=== PATIENT | female | born 1945 | race Caucasian/White ===

== ENCOUNTER 2020-12-06 09:38 | Outpatient (CLI) | payer MEDICARE, OTHER, SELFPAY ==
--- NOTE | ~2020-12-06 | DEXA_ITS ---
Bone Density Report Name: Jody Zelaya Age: 75 Sex: Female Ethnicity: White Date of : 1945 Indication: osteopenia; height loss; Referring Provider: Carrie Barber Study: Bone densitometry was performed. Exam Date: December 06, 2020 Accession number: [id number] Bone Density: Region BMD T-score Z-score Classification AP Spine (L1-L4) 0.915 -1.2 1.2 Osteopenia Femoral Neck (Left) 0.710 -1.3 0.8 Osteopenia Total Hip (Left) 0.784 -1.3 0.5 Osteopenia Total Hip Bilateral Avg 0.756 -1.6 0.3 Osteopenia Femoral Neck (Right) 0.686 -1.5 0.6 Osteopenia Total Hip (Right) 0.728 -1.8 0.0 Osteopenia World Health Organization criteria for BMD impression classify patients as: Normal (T-score at or above -1.0), Osteopenia (T-score between -1.0 and -2.5), or Osteoporosis (T-score at or below -2.5). 10-year Fracture Risk(1): Major Osteoporotic Fracture 11% Hip Fracture 2.0% Reported Risk Factors: [place] (), Neck BMD=0.686, BMI=23.8 (1) FRAX(R) Version 3.08. Fracture probability calculated for an untreated patient. Fracture probability may be lower if the patient has received treatment. Previous Exams: Region Exam Age BMD T-score BMD Change BMD Change Date g/cm2 vs Baseline vs Previous AP Spine(L1-L4) 12/06/2020 75 0.915 -1.2 -0.204(-18.2%) -0.008(-0.8%)03/05/2018 72 0.923 -1.1 -0.196(-17.5%) -0.002(-0.2%)02/10/2016 70 0.925 -1.1 -0.194(-17.3%) -0.015(-1.6%)05/26/2011 66 0.939 -1.0 -0.179(-16.0%) -0.179(-16.0%) 12/04/2001 56 1.119 0.7 Total Hip(Left) 12/06/2020 75 0.784 -1.3 -0.250(-24.2%) -0.031(-3.8%)03/05/2018 72 0.815 -1.0 -0.219(-21.2%) -0.041(-4.8%)02/10/2016 70 0.856 -0.7 -0.178(-17.2%) -0.031(-3.5%)05/26/2011 66 0.887 -0.4 -0.147(-14.2%) -0.147(-14.2%) 12/04/2001 56 1.034 0.8 Total Hip(Right) 12/06/2020 75 0.728 -1.8 -0.272(-27.2%) -0.068(-8.6%)03/05/2018 72 0.796 -1.2 -0.204(-20.4%) -0.071(-8.2%)02/10/2016 70 0.868 -0.6 -0.132(-13.2%) 0.018(2.1%)05/26/2011 66 0.849 -0.8 -0.151(-15.1%) -0.151(-15.1%) 12/04/2001 56 1.000 0.5 *Denotes significance at 95% confidence level, LSC for AP Spine = 0.022 g/cm2, LSC for Total Hip = 0.027 g/cm2 Clinical Information Provided by Patient: Has used the following medications: Vitamin D, Calcium Patient maximum height was 69 Menopause Age: 50 Onset of menses at age 15 Number of children 3
--- NOTE | ~2020-12-06 | MM_ITS ---
EXAMINATION: MM screening malcom BI w marleny HISTORY: Screening mammogram TECHNIQUE: Craniocaudal and mediolateral oblique 3-D tomosynthesis images were obtained and synthetic 2-D images were generated. CAD analysis was submitted and interpreted. COMPARISON: 03/01/2018, 02/10/2016, 09/15/2013 bilateral digital screening mammogram examinations BREAST PARENCHYMAL COMPOSITION: The breasts are almost entirely fatty. FINDINGS: There is no evidence of suspicious mass, calcification, or architectural distortion to sugg est malignancy in either breast. There has been no suspicious interval change. IMPRESSION: 1. No mammographic evidence of malignancy. 2. Recommend routine screening mammography in one year. BI-RADS Category 1: Negative Reviewed, dictated and finalized at location A.
== END 2020-12-06 09:39 | disposition home or self-care (01) ==
LOC: ANHIMG 09:41
PROVIDERS: PCP Family Medicine; Visit Provider Physician Assistant
DX: Z12.31 Encounter for screening mammogram for malignant neoplasm of breast (principal); Z78.0 Asymptomatic menopausal state; M85.88 Other specified disorders of bone density and structure, other site; M85.852 Other specified disorders of bone density and structure, left thigh; M85.851 Other specified disorders of bone density and structure, right thigh
CPT/HCPCS: 77063; 77067; 77080

== ENCOUNTER 2022-07-04 08:08 | Outpatient (CLI) | payer MEDICARE, OTHER, SELFPAY ==
[2022-07-04 19:42] LABS: Kit Draw Collected
== END 2022-07-04 08:09 | disposition home or self-care (01) ==
LOC: ANHGOSHLAB 08:11
PROVIDERS: PCP Family Medicine; Visit Provider Family Medicine
DX: E78.2 Mixed hyperlipidemia (principal); I10 Essential (primary) hypertension
CPT/HCPCS: 36415

== ENCOUNTER 2023-03-05 08:42 | Outpatient (CLI) | payer MEDICARE, OTHER, SELFPAY ==
[2023-03-05 20:10] LABS: Hemoglobin 13.1 g/dL (12.0-15.0); Mean Corpuscular Volume 96.9 fl (80-100); Mean Platelet Volume 11.7 fl (7.4-10.4); Platelet Count Result 144 k/mm3 (150-375); Red Blood Count 4.23 M/mm3 (4.2-5.4); White Blood Count 7.9 K/mm3 (4.5-10.0)
[2023-03-05 21:04] LABS: Alanine Aminotransferase 15 U/L (6-35); Albumin Level 4.1 g/dL (3.5-5.1); Alkaline Phosphatase 70 U/L (38-126); Anion Gap 8 mmol/L (8-16); Aspartate Amino Transferase 28 U/L (14-36); Bilirubin,Total 0.9 mg/dL (0.2-1.3); Blood Urea Nitrogen 17 mg/dL (7-17); Carbon Dioxide 26 mmol/L (22-30); Chloride 103 mmol/L (98-107); Cholesterol 179 mg/dL (0-200); Estimated Glomerular Filt Rate > 60; Glucose 89 mg/dL (65-110); HDL Direct 50 mg/dL; Potassium 3.9 mmol/L (3.4-5.0); Sodium 137 mmol/L (137-145); Triglycerides 105 mg/dL (<150)
[2023-03-05 21:16] LABS: LDL Cholesterol Direct 94 mg/dL
== END 2023-03-05 08:43 | disposition home or self-care (01) ==
LOC: ANHGOSHLAB 08:46
PROVIDERS: PCP Family Medicine; Visit Provider Family Medicine
DX: E78.2 Mixed hyperlipidemia (principal); I12.9 Hypertensive chronic kidney disease with stage 1 through stage 4 chronic kidney disease, or unspecified chronic kidney disease; N18.30 Chronic kidney disease, stage 3 unspecified
CPT/HCPCS: 36415; 80053; 80061; 84443; 85027

== ENCOUNTER 2023-04-19 09:49 | Outpatient (CLI) | payer MEDICARE, OTHER, SELFPAY ==
[2023-04-19 19:24] LABS: Appearance Urine Clear (Clear); Bilirubin Urine Negative (Negative); Blood Urine Negative (Negative); Color Urine Yellow (Yellow); Glucose Urine UA Negative (Negative); Ketones Urine Negative (Negative); Leukocyte Esterase Ur Negative LEU/UL (Negative); Nitrate Urine Negative (Negative); Protein Urine Negative (Negative); Urobilinogen Urine 0.2 mg/dL (<2.0); pH Urine 5.5 (5.0-9.0)
[2023-04-19 19:28] LABS: Add Urine Microscopic? NO
== END 2023-04-19 09:50 | disposition home or self-care (01) ==
PROVIDERS: PCP Family Medicine; Visit Provider Nurse Practitioner
DX: R30.0 Dysuria (principal)
CPT/HCPCS: 81003

== ENCOUNTER 2023-05-14 12:52 | Outpatient (CLI) | payer MEDICARE, OTHER, SELFPAY ==
--- NOTE | ~2023-05-14 | US_ITS ---
EXAMINATION: US pelvic complete DATE: 05/14/2023 14:13 INDICATION: Uterine prolapse TECHNIQUE: Multiple transabdominal and endovaginal sonographic images of the pelvis were obtained. COMPARISON: None. FINDINGS: The uterus measures 5.3 x 4.4 x 2.5 cm. The endometrial complex measures 2 mm. The ovaries are not visualized however no adnexal abnormality is seen. There is no free fluid in the pelvis. IMPRESSION: 1. Atrophic uterus. Reviewed, dictated and finalized at location A. IMPRESSION: 1. Atrophic uterus.
== END 2023-05-14 12:53 | disposition home or self-care (01) ==
PROVIDERS: PCP Family Medicine; Visit Provider Urology
DX: N81.4 Uterovaginal prolapse, unspecified (principal)
CPT/HCPCS: 76856

== ENCOUNTER 2023-08-09 08:01 | Outpatient (CLI) | payer MEDICARE, OTHER, SELFPAY ==
[2023-08-09 19:39] LABS: Vitamin D 25 Hydroxy 62.8 ng/mL
[2023-08-09 20:16] LABS: Alanine Aminotransferase 13 U/L (6-35); Albumin Level 3.9 g/dL (3.5-5.1); Alkaline Phosphatase 73 U/L (38-126); Anion Gap 7 mmol/L (8-16); Aspartate Amino Transferase 35 U/L (14-36); Bilirubin,Total 0.9 mg/dL (0.2-1.3); Blood Urea Nitrogen 20 mg/dL (7-17); Calcium 9.2 mg/dL (8.4-10.2); Carbon Dioxide 28 mmol/L (22-30); Chloride 102 mmol/L (98-107); Cholesterol 194 mg/dL (0-200); Estimated Glomerular Filt Rate 54; Glucose 79 mg/dL (65-110); HDL Direct 56 mg/dL; Potassium 4.2 mmol/L (3.4-5.0); Sodium 137 mmol/L (137-145); Triglycerides 73 mg/dL (<150)
[2023-08-09 20:27] LABS: LDL Cholesterol Direct 100 mg/dL
[2023-08-09 22:22] LABS: Hemoglobin A1C 5.6 % (<5.7)
== END 2023-08-09 08:02 | disposition home or self-care (01) ==
PROVIDERS: PCP Family Medicine; Visit Provider Nurse Practitioner
DX: N18.30 Chronic kidney disease, stage 3 unspecified (principal); R73.03 Prediabetes; E55.9 Vitamin D deficiency, unspecified; E78.2 Mixed hyperlipidemia
CPT/HCPCS: 36415; 80053; 80061; 82306; 83036

== ENCOUNTER 2023-08-14 13:22 | Emergency (ER) | payer MEDICARE, OTHER, SELFPAY ==
--- NOTE | ~2023-08-14 | XR_ITS ---
XR shoulder RT min 2V DATE: 08/14/2023 16:53 INDICATION: Fall. Right shoulder pain TECHNIQUE: 4 views COMPARISON: None FINDINGS: There is a linear oblique fracture through the very lateral aspect of the shaft of the righ t clavicle without extension into the acromioclavicular joint. There is minimal displacement or angul ation. Normal alignment at the acromion clavicular and glenohumeral joints. Dextroscoliosis of the thoracic spine. IMPRESSION: Very lateral clavicular shaft fracture Reviewed, dictated and finalized at location L. PLASTERER
[2023-08-14 13:32] VITALS: BP 149/83; PULSE 76; RESP 16; TEMP 36.6; O2SAT 100
--- NOTE | 2023-08-14 16:28 | ED.UPPEXIN ---
HPI - Extremity Injury (Upper) General Chief Complaint: Extremity Injury, Upper Stated Complaint: fall, right shoulder pain Time Seen by Provider: 08/14/23 16:30 Source: patient and family Mode of arrival: ambulatory Limitations: no limitations History of Present Illness HPI narrative: Jody is a 78-year-old female patient presenting to the ER today for a ground level fall. She reports she was reaching up to grab a duster and slipped and hit her mouth and shoulder. States she had her mouth on the kitchen table. Complaints of right upper top dental pain. Also has large bruise with swelling to the right shoulder. Is unable to move the shoulder without significant pain. Pain is to the anterior shoulder. Related Data Home Medications Medication Instructions Recorded Confirmed acetaminophen 500 mg tablet 500 mg PO Q6H PRN 04/08/20 07/02/23 (Tylenol Extra Strength) calcium carbonate 600 mg-vitamin 1 tablet PO DAILY 04/08/20 07/02/23 D3 20 mcg (800 unit) chewable tablet (Caltrate 600 plus D) cholecalciferol (vitamin D3) 50 50 mcg PO DAILY 04/08/20 07/02/23 mcg (2,000 unit) capsule omeprazole 20 mg capsule,delayed 20 mg PO DAILY 04/08/20 07/02/23 release Allergies Allergy/AdvReac Type Severity Reaction Status Date / Time No Known Allergies Allergy Mild Verified 07/02/23 07:26 Review of Systems Review of Systems: Pertinent positives per HPI. Patient denies any fever, chills, rash, headache, visual changes, dizziness, cough, runny nose, sore throat, shortness of breath, chest pain, palpitations, nausea, vomiting, diarrhea, constipation, abdominal pain, or any urinary issues. [facility] Past Medical History Medical History Encounter for dual-energy x-ray absoptiometry review Hearing problem Hepatitis C antibody test negative (07/24/17) Mammogram normal Obesity Surgical History Surgical History History of appendectomy Family History Family History Mother Diabetes mellitus Sibling Depression Father Depression Family history of suicide Hypertension Grandparent Family history of cardiovascular disease Family history of coronary artery disease Other No family history of diabetes mellitus No family history of hypertension No family history of malignant neoplasm Social History Social History Smoking status: Never smoker Alcohol intake: never Substance use: never Substance use type: does not use Lack of Transportation: No Lack of Food: Never True Current Housing: I Have Housing Concerned About Future Housing: No Difficulty Paying Gas/Electric Bills: No Difficulty Paying for Meds: No Currently Unemployed: No Education: Grade School Difficulty w/ Childcare or Family Care: No Living arrangements: alone Occupation/Education: retired Gender identity (if verbalized by the patient): Female Sexual Orientation (if Verbalized by the Patient): Straight or Heterosexual Agree to blood products: Yes Comments At the time of my signature, I reviewed and agree with the nursing past medical, surgical, social, and family history. There is no relevant family history pertinent to the patient complaint. Exam Narrative: General: Well-developed, well nourished, in no apparent distress Head: Normocephalic, atraumatic. No bruising to the right upper lip, teeth are in place-no loose teeth Cardio: Regular rate and rhythm, s1 and s2 normal, no murmur appreciated. Resp: Clear to auscultation bilaterally, no rhonchi, rales, wheezing or rubs. Musculoskeletal: No deformity, large bruise/swelling to the right anterior shoulder, tender to palpation over the right anterior shoulder, unable to lift her arm above her shoulder
[2023-08-14 17:40] VITALS: PULSE 74; RESP 18; O2SAT 97
== END 2023-08-14 17:40 | disposition home or self-care (01) ==
LOC: ANHED 17:36
PROVIDERS: Emergency Provider Nurse Practitioner Family; PCP Family Medicine
DX: S42.012A Anterior displaced fracture of sternal end of left clavicle, initial encounter for closed fracture (principal); W01.0XXA Fall on same level from slipping, tripping and stumbling without subsequent striking against object, initial encounter
CPT/HCPCS: 73030; 99284; A4565

== ENCOUNTER 2023-12-13 07:58 | Outpatient (CLI) | payer MEDICARE, OTHER, SELFPAY ==
[2023-12-13 19:21] LABS: Alanine Aminotransferase 11 U/L (6-35); Albumin Level 3.9 g/dL (3.5-5.1); Alkaline Phosphatase 75 U/L (38-126); Anion Gap 4 mmol/L (4-12); Aspartate Amino Transferase 28 U/L (14-36); Bilirubin,Total 0.7 mg/dL (0.2-1.3); Blood Urea Nitrogen 20 mg/dL (7-17); Calcium 9.1 mg/dL (8.4-10.2); Carbon Dioxide 30 mmol/L (22-30); Chloride 106 mmol/L (98-107); Cholesterol 161 mg/dL (0-200); Estimated Glomerular Filt Rate 48; Glucose 89 mg/dL (65-110); HDL Direct 54 mg/dL; Potassium 3.8 mmol/L (3.4-5.0); Sodium 140 mmol/L (137-145); Triglycerides 105 mg/dL (<150)
[2023-12-13 19:36] LABS: LDL Cholesterol Direct 91 mg/dL
[2023-12-13 20:49] LABS: Hemoglobin A1C 5.5 % (<5.7)
== END 2023-12-13 07:59 | disposition home or self-care (01) ==
LOC: ANHGOSHLAB 08:00
PROVIDERS: PCP Family Medicine; Visit Provider Nurse Practitioner
DX: R73.03 Prediabetes (principal); F32.A Depression, unspecified; E78.2 Mixed hyperlipidemia; N18.30 Chronic kidney disease, stage 3 unspecified
CPT/HCPCS: 36415; 80053; 80061; 83036; 84443

== ENCOUNTER 2024-01-28 09:56 | Outpatient (CLI) | payer MEDICARE, OTHER, SELFPAY ==
--- NOTE | 2024-01-28 11:01 | ECG_ITS ---
Test Date: 2024-01-28 11:18:01 Measurements Intervals [place] Rate: 66 P: 51 ME: 145 QRS: 23 QRSD: 85 T: 24 QT: 399 QTc: 418 Interpretive Statements SINUS RHYTHM WITHIN NORMAL LIMITS WARNING: DATA QUALITY MAY AFFECT INTERPRETATION No previous ECG available for comparison Electronically Signed On 01-28-2024 15:23:45 CDT by Luis Felipe Enriquez M.D.
[2024-01-28 11:30] LABS: Basophils Absolute Auto 0.1 K/mm3 (0.0-0.1); Basophils Percent Auto 0.8 % (0.2-1.2); Eosinophils Absolute Auto 0.2 K/mm3 (0-0.3); Eosinophils Percent Auto 2.7 % (0-4.4); Hematocrit 40.8 % (37.0-47.0); Hemoglobin 13.5 g/dL (12.0-15.0); Immature Granulocyte Absolute 0.02 K/mm3 (0.00-0.031); Immature Granulocyte Percent A 0.3 % (0-0.5); Lymphocytes Absolute Auto 1.59 K/mm3 (0.9-3.2); Lymphocytes Percent Auto 21.8 % (18.3-44.2); Mean Corpuscular HGB Conc 33.1 g/dl (32-36); Mean Corpuscular Hemoglobin 30.6 pg (26-34); Mean Corpuscular Volume 92.5 fl (80-100); Mean Platelet Volume 10.5 fl (7.4-10.4); Monocytes Absolute Auto 0.6 K/mm3 (0.1-0.6); Monocytes Percent Auto 7.5 % (2.6-8.5); Neutrophils Absolute Auto 4.9 K/mm3 (1.3-6.7); Neutrophils Percent Auto 66.9 % (45.5-73.1); Platelet Count Result 144 k/mm3 (150-375); Red Blood Count 4.41 M/mm3 (4.2-5.4); Red Cell Distribution Width 12.2 % (11.5-14.5); White Blood Count 7.3 K/mm3 (4.5-10.0)
== END 2024-01-28 09:57 | disposition home or self-care (01) ==
LOC: ANHSURGERY 10:02
PROVIDERS: PCP Family Medicine; Visit Provider Urology
DX: Z01.818 Encounter for other preprocedural examination (principal); N81.4 Uterovaginal prolapse, unspecified; I10 Essential (primary) hypertension
CPT/HCPCS: 36415; 85025; 86850; 86900; 86901; 87086; 87088; 93005

== ENCOUNTER 2024-02-08 01:15 | Day surgery (SDC) | payer MEDICARE, OTHER, SELFPAY ==
[2024-01-28 10:13] VITALS: BMI 24.0
--- NOTE | 2024-01-28 10:34 | PC.NURSE ---
Report to the Outpatient Waiting Room, entrance under the green pavilion located off [facility], at time _6:00 AM on date ___02/08/24____. Planned Procedure Time: __8:00 AM . Time changes happen often and if your time is changed the preop area will call you the afternoon before. - You and your visitor will be asked to self-screen and do not enter if you have any COVID symptoms. - A mask is optional within the hospital at this time. Patients may have clear liquids (water, carbonated beverages, clear teas, apple juice) until 3 hours prior to surgery ( 5:00 AM)with a maximum of 20 ounces. - No food from midnight until time of surgery - Infants may have breast milk until 4 hours before surgery, infant formula 6 hours prior to surgery. - Children will be allowed to drink immediately following surgery. If applicable, please bring a bottle or sippy cup to assist with drinking. Juice, water, soda, and popsicles are readily available. For infants on formula, please bring formula the day of surgery. Pacifiers are allowed. Take the following medications with a SIP of water the morning of surgery: ___METOPROLOL,SERTRALINE,TRAMADOL IF NEEDED DO NOT STOP ANY OF YOUR OTHER PRESCRIPTION MEDICATIONS PRIOR TO SURGERY ?EXCEPT THE FOLLOWING Medications to discontinue per physician ___PT STATES HOLD ALL VITAMINS AND SUPPPLEMENTS 7 DAYS PRE OP PER DR BENITEZ.LAST DOSE 01/31/24 Please no make-up, nail bulgarian, hairspray, perfume, deodorant, or body powder the day of surgery. No jewelry (including any body piercings) or valuables the day of surgery, leave them at home. Please take a shower or bath the night before, or the morning of, surgery with an antibacterial soap. Wear comfortable, loose fitting clothing. Children are encouraged to wear pajamas. - Jewelry must be removed prior to entering the operating room. Rings and piercings that are not removed may be cut off. - The hospital will not accept responsibility for valuables. - Please leave all valuables, including medications, at home the day of surgery. If you are going home after surgery, a licensed short haul driver must drive you home. - NO public transportation without another adult if you receive anesthesia. - We recommend that an adult stay with you for 24 hours following discharge. - We also recommend that you do not drive, make important decision, drink alcoholic beverages, or take any drugs that were not prescribed by your health care provider for at least 24 hours after your discharge time. Follow any additional instructions given to you from your surgeon. If you or anyone in your household have experienced Covid symptoms in the past week, please notify your surgeon or the nurse liaison at the phone number below for possible testing. VERBAL AND WRITTEN instructions given to _PATIENT AND DAUGHTER NAMITA and asked if any additional questions and then verbalized understanding. Patient advised to call surgeon office or pre surgery nurse liaison [phone] if any additional questions.
[2024-01-28 11:05] VITALS: BP 165/87; PULSE 80; RESP 18; TEMP 36.7; O2SAT 98
--- NOTE | 2024-02-03 17:50 | PM.IMHP ---
H&P: HPI History of Present Illness Date/Time: 02/03/24 17:50 Chief Complaint: Pelvic organ prolapse Narrative: uterine prolapse and occult stress incontinence noted on urodynamics. Normal endometrial thickness Review of Systems Review of Systems: All systems reviewed & are unremarkable except as noted in HPI and below PMFSH Past Medical History Medical History Encounter for dual-energy x-ray absoptiometry review Hearing problem Hepatitis C antibody test negative (07/24/17) Mammogram normal Obesity Surgical History Surgical History History of appendectomy Family History Family History Mother Diabetes mellitus Sibling Depression Father Depression Family history of suicide Hypertension Grandparent Family history of cardiovascular disease Family history of coronary artery disease Other No family history of diabetes mellitus No family history of hypertension No family history of malignant neoplasm Social History Social History Smoking status: Never smoker Alcohol intake: never Substance use: never Substance use type: does not use Do You Feel Safe in your Home?: Yes Lack of Transportation: No Lack of Food: Never True Current Housing: I Have Housing Concerned About Future Housing: No Difficulty Paying Gas/Electric Bills: No Difficulty Paying for Meds: No Currently Unemployed: No Education: Grade School Difficulty w/ Childcare or Family Care: No Living arrangements: alone Occupation/Education: retired Gender identity (if verbalized by the patient): Female Sexual Orientation (if Verbalized by the Patient): Straight or Heterosexual Spiritual care concerns: No Agree to blood products: Yes Meds Home Medications and Allergies Home Medications Medication Instructions Recorded Confirmed Type acetaminophen 500 mg tablet 500 mg PO Q6H PRN Pain 04/08/20 01/28/24 History (Tylenol Extra Strength) calcium carbonate 600 mg-vitamin 1 tablet PO DAILY 04/08/20 01/28/24 History D3 20 mcg (800 unit) chewable tablet (Caltrate 600 plus D) cholecalciferol (vitamin D3) 50 50 mcg PO DAILY 04/08/20 01/28/24 History mcg (2,000 unit) capsule omeprazole 20 mg capsule,delayed 20 mg PO DAILY 04/08/20 01/28/24 History release tramadol 50 mg tablet 50 mg PO BID PRN pain #60 tabs 12/06/23 01/28/24 Rx metoprolol tartrate 37.5 mg tablet 37.5 mg PO DAILY 12/24/23 01/28/24 History sertraline 50 mg tablet 25 mg PO DAILY 12/24/23 01/28/24 History Allergies Allergy/AdvReac Type Severity Reaction Status Date / Time No Known Allergies Allergy Mild Verified 01/28/24 10:09 Exam Narrative: no acute distress alert oriented x3 apical prolapse +6 intrinsic sphincter deficiency Assessment and Plan Assessment and plan (1) Uterine prolapse: Code(s): N81.4 - Uterovaginal prolapse, unspecified Status: Acute (2) Intrinsic sphincter deficiency (ISD): Code(s): N36.42 - Intrinsic sphincter deficiency (ISD) Status: Acute Plan plan for colpocleisis with concomitant bulking agent. Understands risks of bleeding, infection, damage surrounding organs, damage to the urinary tract, recurrence of prolapse, inability to have penetrative intercourse, obstructive voiding requiring catheterization, recurrent or persistent prolapse or incontinence. She agrees to proceed.
[2024-02-08] VITALS (7 sets, daily range): BP systolic 128–162; BP diastolic 55–82; PULSE 62–82; RESP 14–16; TEMP 36.2–36.3; O2SAT 95–100; BMI 22.8
--- NOTE | 2024-02-08 05:26 | WPDHPUPDATE1 ---
History and Physical Update Update Date/Time: 02/08/24 05:26 History and Physical has been reviewed, including an updated exam of the patient. There are NO changes in the patient's condition. Risks, benefits, and alternatives have been discussed and questions answered. Patient agrees to proceed with procedure.
[2024-02-08] MEDS: LACTATED RINGERS 1,000 ML 30 ML IV CONT ×2 (09:04→11:09)
--- NOTE | 2024-02-08 09:04 | WPDANESEPPF ---
Anes - Initial Pre Proc Eval Procedure: Operation Date: 02/08/24 10:00 Proposed Procedures p Colpocleisis - Ariel Long MD Date/Time: 02/08/24 09:04 Surgeon: Ariel Long MD Pre Op Diagnosis: uterine prolapse Patient Data Age: 78 Gender: F Height: 1.7 m Weight: 66.35 kg Last Vital Signs Temp 97.2 F L 02/08/24 08:45 Pulse 76 02/08/24 08:45 Resp 14 02/08/24 08:45 BP 162/78 H 02/08/24 08:45 Pulse Ox 99 02/08/24 08:45 O2 Del Method Room Air 02/08/24 08:45 Allergies Allergy/AdvReac Type Severity Reaction Status Date / Time No Known Allergies Allergy Mild Verified 02/08/24 08:40 Home Medications Medication Instructions Recorded Confirmed Type acetaminophen 500 mg tablet 500 mg PO Q6H PRN Pain 04/08/20 01/28/24 History (Tylenol Extra Strength) calcium carbonate 600 mg-vitamin 1 tablet PO DAILY 04/08/20 01/28/24 History D3 20 mcg (800 unit) chewable tablet (Caltrate 600 plus D) cholecalciferol (vitamin D3) 50 50 mcg PO DAILY 04/08/20 01/28/24 History mcg (2,000 unit) capsule omeprazole 20 mg capsule,delayed 20 mg PO DAILY 04/08/20 01/28/24 History release tramadol 50 mg tablet 50 mg PO BID PRN pain #60 tabs 12/06/23 01/28/24 Rx metoprolol tartrate 37.5 mg tablet 37.5 mg PO DAILY 12/24/23 01/28/24 History sertraline 50 mg tablet 25 mg PO DAILY 12/24/23 01/28/24 History Patient hx anesthesia problems: none Family hx anesthesia problems: none Results Review: All pre-operative results and documents have been reviewed as part of the pre-operative evaluation. [facility] Past Medical History Medical History Encounter for dual-energy x-ray absoptiometry review Hearing problem Hepatitis C antibody test negative (07/24/17) Mammogram normal Obesity Surgical History Surgical History History of appendectomy Family History Family History Mother Diabetes mellitus Sibling Depression Father Depression Family history of suicide Hypertension Grandparent Family history of cardiovascular disease Family history of coronary artery disease Other No family history of diabetes mellitus No family history of hypertension No family history of malignant neoplasm Social History Social History Smoking status: Never smoker Alcohol intake: never Substance use: never Substance use type: does not use Do You Feel Safe in your Home?: Yes Lack of Transportation: No Lack of Food: Never True Current Housing: I Have Housing Concerned About Future Housing: No Difficulty Paying Gas/Electric Bills: No Difficulty Paying for Meds: No Currently Unemployed: No Education: Grade School Difficulty w/ Childcare or Family Care: No Living arrangements: alone Occupation/Education: retired Gender identity (if verbalized by the patient): Female Sexual Orientation (if Verbalized by the Patient): Straight or Heterosexual Spiritual care concerns: No Agree to blood products: Yes Anes - Eval Final PreProcedure Day of Procedure 02/08/24 09:04 Patient weight: normal Heart: regular rate and rhythm Lungs: clear to auscultation Airway: Mallampati scale and special considerations (Missing many teeth in the post aspect. None loose. ) Neurological: alert and oriented Last oral intake: >/= 8 hours ASA classification: II Emergent: no Anesthetic plan: proceed Anesthesia type and monitoring: general LMA and standard monitoring Results Review: All pre-operative results and documents have been reviewed as part of the pre-operative evaluation. EKG w NSR. Informed Consent: The patient's anesthetic plan and its attendant risks and benefits were discussed with the patient/family/POA. Ques
[2024-02-08] MEDS: ceFAZolin 2 GM/D5W 50 ML 2 GM/50 ML BAG IVPB (09:13)
[2024-02-08] MEDS: BUPIVACAINE/EPINEPHRINE 0.5% 10 ML VIAL 20 ML INFILTRATE (09:29)
--- NOTE | 2024-02-08 11:09 | W.PM.PROC2 ---
Procedure Note - Detailed Date of Procedure 02/08/24 Pre-op Diagnosis uterine prolapse., cystocele, rectocele, female perineal laxity, intrinsic sphincter deficiency Post-op Diagnosis Same Procedure Performed Cystocele repair, rectocele repair, perineoplasty. LeFort colpocleisis, cystoscopy with suburethral injection of implant material Surgeon Ariel Long MD Anesthesia General Indications This with significant uterine prolapse. She has normal endometrial thickness. She has intrinsic sphincter deficiency on urodynamics. She presents for surgery. She has opted for a colpocleisis. She understands risks of bleeding, infection, damage surrounding organs, damage to the urinary tract, lack of cure of a continence and prolapse, recurrent incontinence and prolapse, postoperative voiding dysfunction, hip and leg pain, inability to have penetrative intercourse, damage to bladder bowel, fistula formation, other intraoperative and postoperative complications. She agrees to proceed Findings Significant uterine prolapse, intrinsic sphincter deficiency Description of Procedure She was correctly identified. Informed consent obtained. She had from the operating room. She was given general anesthesia. She was placed in dorsal lithotomy position. She was prepped and draped sterile fashion. Time-out performed. I placed a [place] retractor. I placed Tai catheter. She had significant procidentia. Her apex was at +8 +9. I maya 2 rectangle shaped areas. One of the posterior vaginal wall. One in the anterior vaginal wall. I anesthetized the posterior vaginal wall. I removed the mucosa from the posterior vaginal wall. I then did the same on the anterior vaginal wall. I took great care not to injure underlying organs. I then performed a LeFort type colpocleisis which essentially performed a cystocele and rectocele repair. I plicated the anterior wall to the posterior wall. I left to drainage tunnels on both sides. This was done with several sutures of imbricating 0 Vicryl suture completely reducing the prolapse. I then closed mucosa to mucosa with interrupted 0 Vicryl suture in a horizontal mattress fashion. This completed the colpocleisis. The uterus was completely reduced. I then marked out a sid-shaped area of skin on the perineum. This area of skin. I performed a significant perineoplasty to narrow the vaginal introitus. I did this with interrupted 0 Vicryl sutures. I used a 2-0 Vicryl to close mucosa to mucosa thus completing the surgery I then performed cystoscopy. She had moderate trabeculation. No foreign body in the bladder no abnormal red patches. No tumors. Ureteral patency was documented by placing guidewires up both ureters. I examined the urethra. She had an open urethra consistent with intrinsic sphincter deficiency. I chose a site 2 cm distal to bladder neck. I injected bulking agent circumferentially. I performed several pillows completely coapted urethra. I used 1 syringe total. There was excellent bulking effect. I left the bladder partially full. Rectal exam is normal. She was awakened transferred to PACU in stable condition. Estimated Blood Loss 100 Drains No Packing No Pathology None sent Complications No immediate complications Condition Stable
[2024-02-08] MEDS: KETOROLAC 15 MG/ML VIAL (*BKC) IV PUSH (11:15)
[2024-02-08] MEDS: fentaNYL CITRATE INJ (*CRX) 100 MCG/2 ML VIAL 25 MCG IV PUSH ×8 (11:15→11:50)
== END 2024-02-08 12:55 | disposition home or self-care (01) ==
PROVIDERS: PCP Family Medicine; Visit Provider Urology
PROC: (CPT 57120; principal; 2024-02-08 10:00)
DX: N81.4 Uterovaginal prolapse, unspecified (principal); N36.42 Intrinsic sphincter deficiency (ISD)
CPT/HCPCS: 57260; 56810; 51715; 87088; C1758; C1769; J0690; J1885; J2405; J2704; J3010; J7120; L8606; Q9968

== ENCOUNTER 2024-04-17 08:01 | Outpatient (CLI) | payer MEDICARE, OTHER, SELFPAY ==
[2024-04-17 13:58] LABS: Hematocrit 41.9 % (37.0-47.0); Hemoglobin 13.7 g/dL (12.0-15.0); Immature Platelet Fraction Pct 4.3 % (0.9-11.2); Mean Corpuscular HGB Conc 32.7 g/dl (32-36); Mean Corpuscular Hemoglobin 30.7 pg (26-34); Mean Corpuscular Volume 93.9 fl (80-100); Mean Platelet Volume 10.8 fl (7.4-10.4); Platelet Count Result 133 k/mm3 (150-375); Red Blood Count 4.46 M/mm3 (4.2-5.4); Red Cell Distribution Width 12.3 % (11.5-14.5); White Blood Count 8.2 K/mm3 (4.5-10.0)
[2024-04-17 14:51] LABS: Alanine Aminotransferase 12 U/L (6-35); Alkaline Phosphatase 72 U/L (38-126); Anion Gap 6 mmol/L (4-12); Aspartate Amino Transferase 44 U/L (14-36); Bilirubin,Total 0.7 mg/dL (0.2-1.3); Blood Urea Nitrogen 21 mg/dL (7-17); Calcium 8.8 mg/dL (8.4-10.2); Carbon Dioxide 30 mmol/L (22-30); Chloride 98 mmol/L (98-107); Cholesterol 174 mg/dL (0-200); Estimated Glomerular Filt Rate 48; Glucose 88 mg/dL (65-110); HDL Direct 54 mg/dL; Potassium 4.2 mmol/L (3.4-5.0); Sodium 134 mmol/L (137-145); Triglycerides 107 mg/dL (<150)
[2024-04-17 14:56] LABS: Creatinine Urine 62.9 mg/dL
[2024-04-17 15:05] LABS: LDL Cholesterol Direct 90 mg/dL
[2024-04-17 15:31] LABS: MALB Creatinine Ratio < 9.5 mg/g (0-30); Microalbumin Urine Random < 6.0 mg/L (0-16.7)
[2024-04-17 15:59] LABS: Hemoglobin A1C 5.7 % (<5.7)
[2024-04-17 18:36] LABS: Vitamin D 25 Hydroxy 43.9 ng/mL
== END 2024-04-17 08:02 | disposition home or self-care (01) ==
PROVIDERS: PCP Family Medicine; Visit Provider Nurse Practitioner
DX: E78.5 Hyperlipidemia, unspecified (principal); R73.03 Prediabetes; E55.9 Vitamin D deficiency, unspecified; N18.30 Chronic kidney disease, stage 3 unspecified
CPT/HCPCS: 36415; 80053; 80061; 82043; 82306; 83036; 84443; 85027; 85055

== ENCOUNTER 2024-09-15 08:08 | Outpatient (CLI) | payer MEDICARE, OTHER, SELFPAY ==
[2024-09-15 12:29] LABS: Alanine Aminotransferase 57 U/L (6-35); Albumin Level 3.6 g/dL (3.5-5.1); Alkaline Phosphatase 95 U/L (38-126); Anion Gap 9 mmol/L (4-12); Aspartate Amino Transferase 70 U/L (14-36); Bilirubin,Total 1.1 mg/dL (0.2-1.3); Blood Urea Nitrogen 12 mg/dL (7-17); Carbon Dioxide 28 mmol/L (22-30); Chloride 104 mmol/L (98-107); Cholesterol 161 mg/dL (0-200); Estimated Glomerular Filt Rate > 60; Glucose 103 mg/dL (65-110); HDL Direct 34 mg/dL; Potassium 4.4 mmol/L (3.4-5.0); Sodium 141 mmol/L (137-145); Triglycerides 155 mg/dL (<150)
[2024-09-15 12:41] LABS: LDL Cholesterol Direct 86 mg/dL
[2024-09-15 13:16] LABS: MALB Creatinine Ratio < 12.5 mg/g (0-30); Microalbumin Urine Random < 6.0 mg/L (0-16.7)
[2024-09-15 13:20] LABS: Hemoglobin A1C 5.6 % (<5.7)
== END 2024-09-15 08:09 | disposition home or self-care (01) ==
LOC: ANHGOSHLAB 08:09
PROVIDERS: PCP Family Medicine; Visit Provider Nurse Practitioner
DX: E78.2 Mixed hyperlipidemia (principal); N18.32 Chronic kidney disease, stage 3b; R73.03 Prediabetes
CPT/HCPCS: 36415; 80053; 80061; 82043; 83036

== ENCOUNTER 2024-11-20 02:32 | Emergency (ER) | payer MEDICARE, OTHER, SELFPAY ==
--- NOTE | ~2024-11-20 | CT_ITS ---
Noncontrast CT scan of the lumbar spine CLINICAL HISTORY: Right sciatica TECHNIQUE: Axial noncontrast imaging of the lumbar spine was performed. Sagittal and coronal reformat abeba images were constructed. Dose reduction technique was used on this scan by utilizing automated ex posure control and iterative reconstruction technique. The dose-length product (DLP) was 297.04 mGy-c m. FINDINGS: Chronic T11 compression fracture deformity noted. No fracture seen in the lumbar spine. The re is minimal grade 1 retrolisthesis of L2 over L3. At L1-L2, there is advanced degenerative disc narrowing. There is minimal disc bulge and minimal face t arthropathy. No central canal stenosis or neural foraminal narrowing. At L2-L3, there is diffuse disc bulge with mild facet arthropathy. Possible mild central canal stenos is. There is moderate to advanced right neural foraminal narrowing. Left neural foramen preserved. L3-L4, there is moderate degenerative disc narrowing. There is diffuse disc bulge with mild to modera te facet arthropathy. There is probable moderate central canal stenosis/thecal sac compression. There is moderate to advanced left neural foraminal narrowing, and severe right neural foraminal narrowing . At L4-L5, there is advanced degenerative spurring. There is disc bulge and mild facet arthropathy. Po ssible mild central canal stenosis. There is mild to moderate bilateral neural foraminal narrowing. L5-S1, there is no significant disc bulge or herniation. No spinal canal stenosis or neural foraminal narrowing. Paravertebral soft tissues are unremarkable. Impression: Advanced degenerative spondylosis at L3-L4. Moderate degenerative spondylosis at L2-L3 and L4-L5. Additional mild degenerative changes, as above. Chronic T11 compression fracture. Reviewed, dictated and finalized at location M. Impression: Advanced degenerative spondylosis at L3-L4. Moderate degenerative spondylosis at L2-L3 and L4-L5. Additional mild degenerative changes, as above. Chronic T11 compression fracture.
[2024-11-20 02:25] VITALS: BP 148/88; PULSE 93; RESP 16; TEMP 36.6; O2SAT 100
[2024-11-20 03:21] VITALS: BP 166/96; PULSE 87; RESP 16; TEMP 36.6; O2SAT 100
[2024-11-20] MEDS: ORPHENADRINE CITRATE 100 MG TABLET.ER PO (03:52)
[2024-11-20] MEDS: dexAMETHasone SOD PHOS INJ 10 MG/ML 1 ML VIAL IM (03:53)
[2024-11-20] MEDS: KETOROLAC 30 MG/ML VIAL (*BKC) IM (03:54)
[2024-11-20] MEDS: MORPHINE SULFATE (*CRX) 4 MG/ML INJ IM (03:56)
[2024-11-20] MEDS: LIDOCAINE 5% PATCH 1 PATCH TRANSDERM (03:58)
--- NOTE | 2024-11-20 04:54 | ED_ITS ---
HPI - General Adult General Chief complaint: Back Pain/Injury Stated complaint: BACK PAIN Time Seen by Provider: 11/20/24 03:35 History of Present Illness HPI narrative: Patient 79-year-old female who presents emergency department with chief complaint of back pain and sciatic pain. Patient reports she has pain shooting down her right leg and reports taking Tylenol and tramadol without relief. Patient states the pain is worse with movement and improved with rest the patient denies bowel or bladder incontinence denies footdrop denies saddle anesthesia. Related Data Home Medications ?Medication ?Instructions ?Recorded ?Confirmed ?Last Taken ?Type calcium 600 mg (as carbonate)-vit 1 tablet PO DAILY 04/08/20 09/25/24 02/05/24 History D3 20 mcg (800 unit) chewable tablet (Caltrate plus D) omeprazole 20 mg capsule,delayed 20 mg PO DAILY 04/08/20 09/25/24 02/07/24 History release Allergies Allergy/AdvReac Type Severity Reaction Status Date / Time No Known Allergies Allergy Mild Verified 09/25/24 08:06 Review of Systems Review of Systems: A 10 system review of systems was completed on the patient and is negative except for what is stated in the HPI. Nursing and ancillary documentation was reviewed. [facility] Past Medical History Medical History Encounter for dual-energy x-ray absoptiometry review Mammogram normal Obesity Hearing problem Hepatitis C antibody test negative (07/24/17) Surgical History Surgical History History of appendectomy Family History Family History Mother Diabetes mellitus Sibling Depression Father Depression Family history of suicide Hypertension Grandparent Family history of cardiovascular disease Family history of coronary artery disease Other No family history of diabetes mellitus No family history of hypertension No family history of malignant neoplasm Social History Social History Smoking status: Never smoker Alcohol intake: never Substance use: never Substance use type: does not use Do You Feel Safe in your Home?: Yes Lack of Transportation: No Lack of Food: Never True Current Housing: I Have Housing Concerned About Future Housing: No Difficulty Paying Gas/Electric Bills: No Difficulty Paying for Meds: No Currently Unemployed: No Education: Grade School Difficulty w/ Childcare or Family Care: No Living arrangements: alone Occupation/Education: retired Gender identity (if verbalized by the patient): Female Sexual Orientation (if Verbalized by the Patient): Straight or Heterosexual Spiritual care concerns: No Agree to blood products: Yes Exam Narrative: GENERAL: Well-appearing, well-nourished, and in no acute distress. HEAD: Normocephalic, atraumatic. EYES: PERRLA and EOMI. ENT: Nares clear, no rhinorrhea or epistaxis. Mucous membranes moist. NECK: Supple. CHEST: Clear to auscultation. No respiratory distress. HEART: Regular rate and rhythm. No murmur heard. Normal peripheral pulses. ABDOMEN: Soft, nontender, nondistended, normal active bowel sounds. EXTREMITIES: Normal range of motion. No edema. Tenderness to palpation the right sciatic area SKIN: Warm, dry, no rash. NEURO: No focal deficits. Alert and oriented x3. No saddle anesthesia no footdrop PSYCH: Normal mood and affect. Course Vital Signs Vital signs: Vital Signs Temperature 36.6 C 11/20/24 02:25 Pulse Rate 93 11/20/24 02:25 Respiratory Rate 16 11/20/24 02:25 Blood Pressure 148/88 H 11/20/24 02:25 Pulse Oximetry 100 11/20/24 02:25 Oxygen Delivery Room Air 11/20/24 02:25 Temperature 36.6 C 11/20/24 05:00 Pulse Rate 77 11/20/24 05:00 Respiratory Rate 18 11/20/24 05:00 Blood Pressure 138/59 L 11/20/24 05:00 Pulse Oximetry 99 11/20/24 05:00 Oxygen Delivery Room Air 11/20/24 02:25 Medical Decision Making MDM Narrative Medical decision making narrative: Differential diagnosis includes sciatica, lumbar fracture, CT scan showed Advanced degenerative spondylosis at L3-L4. Moderate degenerative spondylosis at L2-L3 and L4-L5. Additional mild degenerative changes, as above. Chronic T11 compression fracture. Vital Signs Vital Signs: Vital Signs Temperature 36.6 C 11/20/24 02:25 Pulse Rate 93 11/20/24 02:25 Respiratory Rate 16 11/20/24 02:25 Blood Pressure 148/88 H 11/20/24 02:25 Pulse Oximetry 100 11/20/24 02:25 Oxygen Delivery Room Air 11/20/24 02:25 Temperature 36.6 C 11/20/24 05:00 Pulse Rate 77 11/20/24 05:00 Respiratory Rate 18 11/20/24 05:00 Blood Pressure 138/59 L 11/20/24 05:00 Pulse Oximetry 99 11/20/24 05:00 Oxygen Delivery Room Air 11/20/24 02:25 Discharge Plan Discharge Clinical Impression: Sciatica Patient Disposition: Home Condition: Stable Instructions: Antibiotic Form, Sciatica (ED) Patient Language: Bulgarian Prescriptions: New prednisone 20 mg tablet 40 mg PO DAILY 5 Days Qty: 10 0RF lidocaine [Lidoderm] 5 % adhesive patch,medicated 1 patch topical DAILY Qty: 15 0RF Rx Instructions: leave on most painful area for up to 12 hrs hydrocodone-acetaminophen 5-325 mg tablet 1 tablet PO Q6H PRN (Reason: pain) 3 Days Qty: 12 0RF meloxicam 15 mg tablet 15 mg PO DAILY Qty: 14 0RF No Action Caltrate 600 plus D 600 mg (1,500 mg)-800 unit tablet,chewable 1 tablet PO DAILY omeprazole 20 mg capsule,delayed release(DR/EC) 20 mg PO DAILY tramadol 50 mg tablet 50 mg PO BID PRN (Reason: pain) Qty: 60 3RF metoprolol tartrate 37.5 mg tablet 37.5 mg PO DAILY Qty: 90 1RF tizanidine 4 mg tablet 4 mg PO QHS PRN (Reason: muscle spasticity) Qty: 30 0RF Follow-up/Referrals: Ambika Lew DO [Primary Care Provider] - Time of Disposition: 06:57
[2024-11-20 05:00] VITALS: BP 138/59; PULSE 77; RESP 18; TEMP 36.6; O2SAT 99
== END 2024-11-20 07:48 | disposition home or self-care (01) ==
PROVIDERS: Emergency Provider Emergency Medicine; PCP Family Medicine
DX: M54.41 Lumbago with sciatica, right side (principal); E66.9 Obesity, unspecified; Z68.26 Body mass index [BMI] 26.0-26.9, adult; M47.816 Spondylosis without myelopathy or radiculopathy, lumbar region; M48.54XA Collapsed vertebra, not elsewhere classified, thoracic region, initial encounter for fracture
CPT/HCPCS: 72131; 96372; 99284; A9270; J1100; J1885; J2270

== ENCOUNTER 2024-11-26 11:20 | Inpatient (IN) | payer MEDICARE, OTHER, SELFPAY ==
[2024-11-26] VITALS (14 sets, daily range): BP systolic 124–178; BP diastolic 55–94; PULSE 70–95; RESP 14–18; TEMP 36.7–37; O2SAT 94–99; BMI 24.5
--- NOTE | ~2024-11-26 | MR_ITS ---
EXAMINATION: MR lumbar spine wo con DATE: 11/27/2024 09:01 INDICATION: Low back pain and right-sided sciatica. TECHNIQUE: Magnetic resonance imaging (MRI) of the lumbar spine was performed without intravenous con trast. Sequences included sagittal T2-weighted FSE, sagittal T2-weighted FS FSE, sagittal T1-weighted FSE, and axial T2-weighted FSE. COMPARISON: None FINDINGS: Mild upper lumbar levocurvature and mild lower lumbar dextrocurvature. There is a 6 mm left lateral l isthesis L3 on L4. Sagittal alignment is normal. Chronic T11 compression fracture with 40% anterior v ertebral body height loss. T12 and the lumbar vertebral body heights are normal. Severe right-sided p redominant disc height loss at L1-L2 and moderate to severe disc height loss at L3-L4 right-sided pre dominant disc height loss at L2-L3. There are mild T2 hyperintense fibrovascular degenerative endplat e changes at each level. There is moderate disc height loss at T10-T11 and L4-L5. Mild disc height lo ss at L5-S1, T11-T12 and T12-L1. There are annular fissures at and L1-L2, L2-L3, L3-L4 and L5-S1. The conus medullaris terminates at T12. There is normal signal in the caudal spinal cord. T2 hyperintens e parenchymal and parapelvic cysts at both kidneys. Paravertebral soft tissues are unremarkable. The following disc levels are specifically discussed: T10-T11: Disc is bulging. There is moderate bilateral facet osteoarthritis. There is mild right neura l foraminal stenosis. There is mild central canal stenosis. T11-T12: Negligible disc bulge. There is mild right and moderate left facet osteoarthritis. There is no neural foraminal stenosis. There is minimal central canal stenosis. T12-L1: Disc is mildly bulging. There is moderate bilateral facet joint osteoarthritis. There is no n eural foraminal stenosis. There is normal central canal stenosis. L1-L2: Disc is bulging with superimposed central annular fissure and disc extrusion with disc materia l extending 3 mm caudal to the level of the superior endplate of L2. There is moderate left and sever e right facet joint osteoarthritis. There is mild bilateral neural foraminal stenosis. There is mild central canal stenosis with narrowing of the left and right lateral recesses.. L2-L3: Disc is bulging with superimposed annular fissures and disc extrusions at the bilateral forami nal zones with disc material extends up to 4 and 5 mm caudal to the level of the superior endplate of L3. There is severe left and moderate right facet joint osteoarthritis. There is moderate right and mild left neural foraminal stenosis. There is mild central canal stenosis with narrowing of the later al recesses, severe on the right and mild on the left. L3-L4: Disc is bulging with annular fissure. There is moderate bilateral facet joint osteoarthritis. There is moderate bilateral neural foraminal stenosis. There is mild central canal stenosis with narr owing of the lateral recesses, mild on the right and moderate on the left. L4-L5: Disc is bulging. There is mild right and severe left facet joint osteoarthritis. There is mode rate left and mild to moderate right neural foraminal stenosis. There is mild central canal stenosis with mild narrowing of the left lateral recess. L5-S1: Disc is bulging with annular fissure. There is moderate bilateral facet joint osteoarthritis. There is mild bilateral neural foraminal stenosis. There is no central canal stenosis. IMPRESSION: 1. Severe lumbar spondylosis. 2. Chronic T11 compression fracture. Reviewed, dictated and finalized at location A.
--- NOTE | ~2024-11-26 | US_ITS ---
EXAMINATION: US venous doppler LE RT DATE: 11/26/2024 13:49 INDICATION: Right lower limb pain TECHNIQUE: Grayscale ultrasound images without and with compression and Doppler ultrasound images of the right lower extremity veins were obtained. COMPARISON: None. FINDINGS: The visualized portions of right common femoral vein, profunda (deep) femoral vein, femoral vein, pop liteal vein, peroneal trunk, posterior tibial veins, peroneal veins, gastrocnemius vein and greater s aphenous vein outflow are patent. IMPRESSION: 1. No deep venous thrombosis in the right lower limb. Reviewed, dictated and finalized at location A.
--- NOTE | ~2024-11-26 | XR_ITS ---
XR knee RT 3V Ordering provider: Yuni Serrano PA-C History: . right knee pain after fall . Comparison: None. FINDINGS: BONES: No acute fracture or dislocation. JOINT SPACES: Mild osteoarthritic changes. Chondrocalcinosis in the menisci. SOFT TISSUES: Normal. IMPRESSION: No acute osseous abnormality right knee. Mild osteoarthritic changes. Chondrocalcinosis. Reviewed, dictated and finalized at location A.
--- NOTE | ~2024-11-26 | CT_ITS ---
CLINICAL INDICATION: Right lower extremity pain, peripheral vascular disease suspected clinically. COMPARISON: None. TECHNIQUE: Computed tomography angiography (CTA) of the abdominal aorta with runoff was performed wit h 150 mL Omnipaque-350 intravenous contrast timed to evaluate the abdominal aorta, mesenteric and per ipheral lower extremity vasculature. Coronal maximum intensity projection 3D-reconstructions were created by the technologist. The dose-length product (DLP) was 765.20 mGy-cm. Automated exposure control and iterative reconstruction technique were employed. FINDINGS/OBSERVATIONS: Visualized lower thorax: The bilateral lung bases are clear. The heart is of normal size without pericardial effusion. Moderate hiatal hernia is present. Liver: The liver enhances homogeneously and is not enlarged. Gallbladder and biliary system: The gallbladder is only minimally distended, without calcified stones. Pancreas: The pancreas enhances homogeneously without ductal dilatation. Spleen: The spleen enhances homogeneously without enlargement. Kidneys: The bilateral kidneys enhance symmetrically without hydronephrosis or obstructing renal calculi. Pararenal cysts detected bilaterally. Adrenal glands: Unremarkable. Gastrointestinal tract: Fecal stasis within the colon. Appendix: The air-filled appendix is of normal caliber. Vasculature: The visualized portion of the thoracic aorta is nonaneurysmal. The abdominal aorta is nonaneurysmal without ductal dilatation. The celiac origin is patent and demonstrates conventional anatomy. The superior mesenteric artery is also patent, with only mild atherosclerosis. The bilateral renal arteries are patent, and otherwise unremarkable. The right common iliac artery is patent without calcified atherosclerosis. The right internal and external iliac arteries are patent, without aneurysmal dilatation or significa nt stenosis. The right common femoral artery is patent without aneurysmal dilatation or significant stenosis. The right superficial femoral artery and profunda femoral artery are both patent and without signific ant stenosis, aneurysmal dilatation or dissection. The right popliteal artery is patent, of normal caliber, and without aneurysmal dilatation or dissect ion. Three-vessel runoff is identified within the right calf with two-vessel runoff into the right foot. The left common iliac artery is patent without calcified atherosclerosis. The left internal and external iliac arteries are patent, without aneurysmal dilatation or significan t stenosis. The left common femoral artery is patent without aneurysmal dilatation or significant stenosis. The left superficial femoral artery and profunda femoral artery are both patent and without significa nt stenosis, aneurysmal dilatation or dissection. The left popliteal artery is patent, of normal caliber, and without aneurysmal dilatation or dissecti on. Three-vessel runoff is identified within the left calf with two-vessel runoff into the left foot. Lymph nodes: No pathologically enlarged or morphologically suspicious lymph nodes within the retroperitoneum, or t he root of the mesentery. Pelvic structures: The bladder is only minimally distended. The uterus is anteverted and retroflexed with multiple calcifications suggesting prior fibroid diseas e. IMPRESSION: No CTA evidence of peripheral vascular disease within the bilateral lower extremities Reviewed, dictated and finalized at location A. IMPRESSION: No CTA evidence of peripheral vascular disease within the bilateral lower extre mities
[2024-11-26] MEDS: HYDROmorphone HCL INJ (*CRX) 2 MG/ML VIAL 1 MG IV PUSH ×3 (13:48→19:23)
[2024-11-26 14:06] LABS: Estimated CRCL calculation 31 ml/min; Estimated Glomerular Filt Rate 43
[2024-11-26 14:08] LABS: Basophils Percent Auto 0.5 % (0.2-1.2); Eosinophils Percent Auto 0.3 % (0-4.4); Hematocrit 42.4 % (37.0-47.0); Hemoglobin 14.1 g/dL (12.0-15.0); Immature Granulocyte Absolute 0.04 K/mm3 (0.00-0.031); Immature Granulocyte Percent A 0.5 % (0-0.5); Lymphocytes Absolute Auto 1.49 K/mm3 (0.9-3.2); Lymphocytes Percent Auto 20.2 % (18.3-44.2); Mean Corpuscular HGB Conc 33.3 g/dl (32-36); Mean Corpuscular Hemoglobin 30.3 pg (26-34); Mean Corpuscular Volume 91.2 fl (80-100); Mean Platelet Volume 9.9 fl (7.4-10.4); Monocytes Absolute Auto 0.8 K/mm3 (0.1-0.6); Monocytes Percent Auto 10.2 % (2.6-8.5); Neutrophils Percent Auto 68.3 % (45.5-73.1); Platelet Count Result 156 k/mm3 (150-375); Red Blood Count 4.65 M/mm3 (4.2-5.4); Red Cell Distribution Width 12.5 % (11.5-14.5); White Blood Count 7.4 K/mm3 (4.5-10.0)
[2024-11-26 14:17] LABS: Alanine Aminotransferase 17 U/L (6-35); Alkaline Phosphatase 64 U/L (38-126); Anion Gap 10 mmol/L (4-12); Aspartate Amino Transferase 22 U/L (14-36); Bilirubin,Total 1.1 mg/dL (0.2-1.3); Blood Urea Nitrogen 19 mg/dL (7-17); Carbon Dioxide 26 mmol/L (22-30); Chloride 104 mmol/L (98-107); Estimated CRCL calculation 37 ml/min; Estimated Glomerular Filt Rate 54; Glucose 111 mg/dL (65-110); Lactic Acid Reflex 1.3 mmol/L (0.7-2.0); Potassium 4.3 mmol/L (3.4-5.0); Sodium 140 mmol/L (137-145)
[2024-11-26 14:18] LABS: Prothrombin Time 13.1 Seconds (11.1-14.7)
[2024-11-26 14:19] LABS: Partial Thromboplastin Time 23.1 Seconds (22.3-36.8)
--- NOTE | 2024-11-26 15:17 | ED.GENADULT ---
HPI - General Adult General Chief complaint: Extremity Problem,Nontraumatic Stated complaint: Severe pain right leg Time Seen by Provider: 11/26/24 12:48 History of Present Illness HPI narrative: Patient is a 79-year-old female who presents emergency department with chief complaint of right leg pain. Patient reports that she has pain shooting on her right buttock down into her right leg the patient reports that she has pain with walking pain with range of motion reports no numbness no tingling no bowel or bladder incontinence. Patient was seen in the emergency department several days ago was treated for sciatica and reports she continues to have symptoms even though she has been taking the medications Related Data Allergies Allergy/AdvReac Type Severity Reaction Status Date / Time No Known Allergies Allergy Verified 11/26/24 11:22 Review of Systems Review of Systems: A 10 system review of systems was completed on the patient and is negative except for what is stated in the HPI. Nursing and ancillary documentation was reviewed. Exam Narrative: GENERAL: Well-appearing, well-nourished, and in no acute distress. HEAD: Normocephalic, atraumatic. EYES: PERRLA and EOMI. ENT: Nares clear, no rhinorrhea or epistaxis. Mucous membranes moist. NECK: Supple. CHEST: Clear to auscultation. No respiratory distress. HEART: Regular rate and rhythm. No murmur heard. Normal peripheral pulses. ABDOMEN: Soft, nontender, nondistended, normal active bowel sounds. EXTREMITIES: Normal range of motion in all extremities pain with range of motion tenderness in the right sciatic nerve area. No edema. SKIN: Warm, dry, no rash. NEURO: No focal deficits. Alert and oriented x3. PSYCH: Normal mood and affect. Course Vital Signs Vital signs: Vital Signs Temperature 98.1 F 11/26/24 11:30 Pulse Rate 87 11/26/24 11:30 Respiratory Rate 18 11/26/24 11:30 Blood Pressure 124/84 11/26/24 11:30 Pulse Oximetry 98 11/26/24 11:30 Temperature 98.1 F 11/26/24 11:30 Pulse Rate 87 11/26/24 11:30 Respiratory Rate 18 11/26/24 11:30 Blood Pressure 124/84 11/26/24 11:30 Pulse Oximetry 98 11/26/24 11:30 Medical Decision Making [facility] Narrative Medical decision making narrative: Differential diagnosis includes sciatica, lower extremity pain, DVT, arterial insufficiency CTA with runoff was obtained that showed no evidence of arterial occlusion Venous duplex showed no evidence of DVT Patient's pain was improved with 2 doses of Dilaudid but is still having significant pain Plan will be to admit the patient for PT OT pain control and possible MRI Vital Signs Vital Signs: Vital Signs Temperature 98.1 F 11/26/24 11:30 Pulse Rate 87 11/26/24 11:30 Respiratory Rate 18 11/26/24 11:30 Blood Pressure 124/84 11/26/24 11:30 Pulse Oximetry 98 11/26/24 11:30 Temperature 98.1 F 11/26/24 11:30 Pulse Rate 87 11/26/24 11:30 Respiratory Rate 18 11/26/24 11:30 Blood Pressure 124/84 11/26/24 11:30 Pulse Oximetry 98 11/26/24 11:30 Lab Data 11/26/24 13:53 11/26/24 14:05 Labs: Lab Results 11/26/24 11/26/24 Range/Units 13:53 14:05 WBC 7.4 (4.5-10.0) K/mm3 RBC 4.65 (4.2-5.4) M/mm3 Hgb 14.1 (12.0-15.0) g/dL Hct 42.4 (37.0-47.0) % MCV 91.2 (80-100) fl MCH 30.3 (26-34) pg MCHC 33.3 (32-36) g/dl RDW 12.5 (11.5-14.5) % Plt Count 156 (150-375) k/mm3 MPV 9.9 (7.4-10.4) fl Immature Gran % (Auto) 0.5 (0-0.5) % Neut % (Auto) 68.3 (45.5-73.1) % Lymph % (Auto) 20.2 (18.3-44.2) % Clarke % (Auto) 10.2 H (2.6-8.5) % Eos % (Auto) 0.3 (0-4.4) % Baso % (Auto) 0.5 (0.2-1.2) % Lymph # (Auto) 1.49 (0.9-3.2) K/mm3 Clarke # (Auto) 0.8 H (0.1-0.6) K/mm3 Eos # (Auto) 0.0 (0-0.3) K/mm3 Baso # (Auto) 0.0 (0.0-0.1) K/mm3 Abs Immat Gran (auto) 0.04 H (0.00-0.031) K/mm3 Absolute Neuts (auto) 5.0 (1.3-6.7) K/mm3 Absolute Nucleated RBC 0.000 (0.0-0.012) K/mm3 Nucleated RBC % 0.0 (0.0-0.2) % PT 13.1 (11.1-14.7) Seconds INR 1.0 APTT 23.1 (22.3-36.8) Seconds Sodium 140 (137-145) mmol/L Potassium 4.3 (3.4-5.0) mmol/L Chloride 104 (98-107) mmol/L Carbon Dioxide 26 (22-30) mmol/L Anion Gap 10 (4-12) mmol/L BUN 19 H (7-17) mg/dL Creatinine 0.99 1.20 (0.7-1.0) mg/dL Estim Creat Clear Calc 37 31 ml/min Estimated GFR 54 L 43 L (59 - ) Glucose 111 H (65-110) mg/dL Lactic Acid 1.3 (0.7-2.0) mmol/L Calcium 9.0 (8.4-10.2) mg/dL Total Bilirubin 1.1 (0.2-1.3) mg/dL AST 22 (14-36) U/L ALT 17 (6-35) U/L Alkaline Phosphatase 64 (38-126) U/L Total Protein 7.0 (6.3-8.2) g/dL Albumin 4.0 (3.5-5.1) g/dL Discharge Plan Discharge Clinical Impression: Sciatica, Intractable pain Patient Disposition: Still a Patient Condition: Stable Patient Language: Kyrgyz Follow-up/Referrals: Ambika Lew DO [Primary Care Provider] -
--- NOTE | 2024-11-26 16:40 | PM.IMHP ---
H&P: HPI History of Present Illness Date/Time: 11/26/24 16:40 Chief Complaint: Back and right leg pain. Narrative: This is a pleasant 79-year-old female with intermittent but chronic back pain with advanced degenerative spondylosis at L3-L4 and moderate degenerative spondylosis at L2-L3 on recent lumbar CT, hypertension, gastroesophageal reflux disease, kidney stones, and pelvic organ prolapse status post repair who presented to the emergency department for evaluation of back and right leg pain. About 2 weeks ago she developed pain in the mid low back radiating into the buttocks. She has been using ice on the area and her TENS unit with some improvement on the left side however she continues to have significant pain on the right side, radiating ?hot poker like pain? down the right leg. It has been constant and is worse with certain position changes and weight-bearing. At times she can find a position were she is more comfortable but she has not noticed any significant alleviating factors. She has been doing chores outside and is wondering if she may have strained a muscle. She had a fall about 6 days ago which she believes is due to the pain, and it made the pain worse in her right leg and knee. She did not have a fall prior to the onset of her symptoms. She was seen in the emergency department 6 days ago with similar symptoms, was diagnosed with sciatica, and was discharged on a steroid taper and she was given a prescription for hydrocodone. Unfortunately she has not had any relief in her symptoms. She denies trauma, saddle anesthesia, focal weakness, paresthesias, urinary retention, and bowel incontinence. No fever, chills, or sweats. In the ED: She was afebrile on arrival. Blood pressures have been running a bit high but does seem to have improved with pain control. CMP and CBC were pretty unremarkable; estimated GFR was 43 but she has no chronic kidney disease. Venous Doppler ultrasound of the right leg was negative for DVT. Aorta with runoff CTA showed no evidence of peripheral vascular disease and no significant intra-abdominal or pelvic processes were noted. She was given orphenadrine and hydromorphone with some benefit and she is being admitted in this setting as she is still unable to move much or bear weight without extreme pain. Review of Systems Review of Systems: 12 systems were reviewed and are negative except for as per HPI. [facility] Past Medical History Medical History (Updated 11/26/24 @ 22:39 by Yuni Serrano PA-C) Depression Prolapse of female pelvic organs Kidney stones Gastroesophageal reflux disease Hypertension Chronic kidney disease, stage 3 Surgical History Surgical History (Updated 11/26/24 @ 22:39 by Yuni Serrano PA-C) History of colpocleisis History of appendectomy Family History Family History Mother COPD (chronic obstructive pulmonary disease) Father Suicide Social History Social History (Updated 11/26/24 @ 22:39 by Yuni Serrano PA-C) Social History: Surrogate medical decision maker: Stephanie Valle, daughter ([phone]). Code status: Full code. Smoking status: Never smoker Alcohol intake: never Substance use: never Do You Feel Safe in your Home?: Yes Lack of Transportation: No Lack of Food: Never True Current Housing: I Have Housing Concerned About Future Housing: No Difficulty Paying Gas/Electric Bills: No Difficulty Paying for Meds: No Currently Unemployed: No Education: High School Diploma/GED Difficulty w/ Childcare or Family Care: No Additional living arrangements comments: . She lives in her own home in [place] and is independent of daily activities of living. Spiritual care concerns: No Meds Home Medications and Allergies Home Medications ?Medication ?Instructions ?Recorded ?Confirmed ?Type calcium carb-ergocalciferol (vit 1 tablet PO DAILY 11/26/24 11/26/24 History D2) 600 mg calcium-200 unit tablet lidocaine 5 % topical patch 1 patch transdermal Q24H 11/26/24 11/26/24 History meloxicam 15 mg tablet 15 mg PO DAILY 11/26/24 11/26/24 History metoprolol tartrate 37.5 mg tablet 37.5 mg PO DAILY 11/26/24 11/26/24 History omeprazole 40 mg capsule,delayed 40 mg PO DAILY 11/26/24 11/26/24 History release tizanidine 4 mg capsule 4 mg PO HS PRN muscle spasms 11/26/24 11/26/24 History tramadol 50 mg tablet 50 mg PO BID PRN pain 11/26/24 11/26/24 History Allergies Allergy/AdvReac Type Severity Reaction Status Date / Time No Known Allergies Allergy Verified 11/26/24 11:22 Vital Signs Vital Signs - 24 hr 11/26/24 11:30 Temperature 98.1 F Pulse Rate 87 Respiratory Rate 18 Blood Pressure 124/84 Pulse Oximetry 98 Exam Narrative: General: Nontoxic-appearing elderly female supine in bed in moderate pain. Weight: 66.8 kg. BMI: 24.5. HEENT: Slightly hard of hearing. PERRL, EOMI. Sclera anicteric. Tacky mucous membranes. Neck: Supple. Respiratory: Lungs are clear to auscultation bilaterally. Cardiovascular: Regular rate and rhythm with S1-S2. Gastrointestinal: Abdomen is soft, nontender, and nondistended with positive bowel sounds. Skin: Warm and dry. Extremities: No cyanosis, clubbing, or edema. Radial and pedal pulses intact. Spine: No midline vertebral tenderness. Some tenderness to palpation over the lumbar paraspinous muscles and right piriformis. Strong plantar and dorsiflexion. Quadriceps to not seem weak on either side. She is neurovascularly intact throughout the lower extremities. Mild pain with straight leg raise on the right. Musculoskeletal: Healing bruise on the lateral right knee with a small amount of swelling. She complains of quite a bit of pain with palpation over this area. Neurological: Alert and oriented. Cranial nerves 2-12 are grossly intact. No gross focal deficits to casual conversation. Psychiatric: Pleasant and cooperative with normal mood. She is a bit anxious. H&P: Results Labs Labs: Short CBC 11/26/24 Range/Units 13:53 WBC 7.4 (4.5-10.0) K/mm3 Hgb 14.1 (12.0-15.0) g/dL Hct 42.4 (37.0-47.0) % Plt Count 156 (150-375) k/mm3 [facility] 11/26/24 11/26/24 13:53 14:05 Sodium 140 Potassium 4.3 Chloride 104 Carbon Dioxide 26 BUN 19 H Creatinine 0.99 1.20 Glucose 111 H Calcium 9.0 Liver Function 11/26/24 Range/Units 13:53 Total Bilirubin 1.1 (0.2-1.3) mg/dL AST 22 (14-36) U/L ALT 17 (6-35) U/L Alkaline Phosphatase 64 (38-126) U/L Albumin 4.0 (3.5-5.1) g/dL Impressions Venous Doppler Study 11/26/24 13:55 IMPRESSION: 1. No deep venous thrombosis in the right lower limb. Aorta w/Runoff CTA 11/26/24 14:30 IMPRESSION: No CTA evidence of peripheral vascular disease within the bilateral lower extremities Knee X-Ray 11/26/24 19:27 IMPRESSION: No acute osseous abnormality right knee. Mild osteoarthritic changes. Chondrocalcinosis. Assessment and Plan Assessment and plan (1) Sciatica: Code(s): M54.30 - Sciatica, unspecified side Status: Acute (2) Intractable pain: Code(s): R52 - Pain, unspecified Status: Acute (3) Hypertension: Code(s): I10 - Essential (primary) hypertension Status: Acute (4) Chronic kidney disease, stage 3: Code(s): N18.30 - Chronic kidney disease, stage 3 unspecified Status: Acute Plan The patient presented to the emergency department with complaints of intractable low back pain radiating down the right leg as detailed in HPI. Labs, imaging, EKG, and all reports were personally reviewed. She has been dealing with this pain for couple of weeks and has not seen much benefit with conservative outpatient therapies. Steroids did not seem to help either. Acetaminophen available as needed. Hydromorphone did eventually help and we discussed using short-acting opioids for a short period of time to help get her through this. She will need to get up with physical therapy once she is feeling better. MRI of the lumbar spine ordered given the severity of her symptoms and lack of improvement. Blood pressures have improved now that her pain is under better control. She has chronic kidney disease stage 3 with an estimated GFR today of 43. Her home medications will be reviewed and resumed as appropriate. Findings and treatment plan were discussed with the patient. Questions were solicited and answered to satisfaction. The patient's medical management will be taken over by the hospitalist team in a.m. Quality VTE Prophylaxis VTE prophylaxis: pharmacologic ordered The patient has been admitted under observation status. Hospitalist MIPS Advance Care Plan I have confirmed that the patient's Advanced Care Plan is present, code status is documented, or surrogate decision maker is listed in patient medical record.: Yes Medication Reconciliation I have utilized all available resources to obtain, update and review the patients current medications (includes all prescriptions, OTC, herbals, cannabis, and nutritional supplements).: Yes
--- NOTE | 2024-11-26 20:30 | ADMGEN ---
This patient, Jody Zelaya, was admitted to [facility] Surg Room 313-01. Patient/family oriented to hospital policies and general routines including ID bracelet, bed and alarms, visiting hours, pain management, procedures, bathroom and other care routines, personal items, smoking policy, room service/diet, and visiting hours. Information on how to activate the Rapid Response Team has been discussed. Patient/Family are encouraged to report perceived risks to care and to ask questions if they do not understand what they are told or what they should do.
[2024-11-26] MEDS: ONDANSETRON INJ 4 MG/2 ML VIAL IV PUSH ×2 (20:42→23:06)
[2024-11-26] MEDS: ORPHENADRINE CITRATE 100 MG TABLET.ER PO (23:01)
[2024-11-26] MEDS: methylPREDNISolone SOD SUCC 125 MG VIAL 60 MG IV PUSH (23:02)
[2024-11-26] MEDS: HYDROmorphone HCL INJ (*CRX) 2 MG/ML VIAL 0.5 MG IV PUSH (23:06)
[2024-11-27] MEDS: HYDROmorphone HCL INJ (*CRX) 2 MG/ML VIAL 0.5 MG IV PUSH (03:06)
[2024-11-27] MEDS: ONDANSETRON INJ 4 MG/2 ML VIAL IV PUSH (03:07)
[2024-11-27] MEDS: HYDROcodone/acetaminophen (*CRX) 5-325 MG TABLET 1 TAB PO (04:37)
[2024-11-27 05:57] VITALS: BP 130/79; PULSE 60; RESP 14; TEMP 36.2; O2SAT 97
--- NOTE | 2024-11-27 08:35 | PC.NURSE ---
To MRI per wheelchair.
--- NOTE | 2024-11-27 08:48 | P.PNIM_ITS ---
Progress Note: A&P Assessment and Plan (1) Intractable pain: Code(s): R52 - Pain, unspecified Status: Acute Assessment and Plan: No CTA evidence of peripheral vascular disease within the bilateral lower extremities No deep venous thrombosis in the right lower limb. No acute osseous abnormality right knee MRI showing severe lumbar spondylosis and chronic T11 compression fracture Schedule Tylenol, scheduled Toradol, p.r.n. oxycodone, and gabapentin (2) Sciatica: Code(s): M54.30 - Sciatica, unspecified side Status: Acute Assessment and Plan: See plan above PT OT (3) Hypertension: Code(s): I10 - Essential (primary) hypertension Status: Acute Assessment and Plan: Continue home metoprolol (4) Chronic kidney disease, stage 3: Code(s): N18.30 - Chronic kidney disease, stage 3 unspecified Status: Acute Assessment and Plan: Avoid nephrotoxic medications Daily BMP Time Spent With Patient Time with patient: Greater than 35 minutes Subjective Date/time seen: 11/27/24 08:48 Interval history: 79-year-old female with intermittent but chronic back pain with advanced degenerative spondylosis at L3-L4 and moderate degenerative spondylosis at L2-L3 on recent lumbar CT, hypertension, gastroesophageal reflux disease, kidney stones, and pelvic organ prolapse status post repair who presented to the emergency department for evaluation of back and right leg pain. Patient complaining of severe leg pain stating that she is having difficulty walking, pain meds adjusted and gabapentin added. Review of Systems Review of Systems: 12 systems were reviewed and are negativ e except for as per HPI. Exam Narrative: General: well appearing, appears stated age. HEENT: normocephalic, atraumatic. Mucous membranes moist. EOMI, PERRLA, bilateral sclera anicteric, no conjunctival injection. Neck supple without JVD, lymphadenopathy, or bruit. Respiratory: clear to ascultation bilaterally. No rales/rhonic/wheezes. Cardiovascular: Regular rate and rhythm, normal S1-S2 upon ascultation. No murmurs, rubs, or clicks. PMI is nondisplaced, capillary refill less than 3 second. Abdomen: Soft, round, no pulsatile masses, nondistended and nontender. No rebound, no guarding. No CVA tenderness, no hepatosplenomegaly. Bowel sounds present to all four quadrants. No high pitch or tinkling sounds, resonant to percussion. Extremities: No cyanosis, clubbing, or edema present. Pulses are palpable 2/2. Active ROM to all four extremities. Neuro: Alert and orientated x 4. PERRLA. Cranial nerves 2-12 intact without focal deficit. Skin: Warm, dry, and intact, without rash, erythema, or lesion. Psych: pleasant, cooperative, normal speech, normal affect, no hallucinations, no dysarthia Objective Data Vital Signs Vital Signs: Vital Signs - 24 hr 11/26/24 11:30 11/26/24 12:31 11/26/24 13:16 Temperature 98.1 F Pulse Rate 87 95 94 Respiratory Rate 18 16 16 Blood Pressure 124/84 178/79 H 164/94 H Pulse Oximetry 98 98 99 Oxygen Delivery 11/26/24 14:34 11/26/24 14:46 11/26/24 15:31 Temperature Pulse Rate 83 90 70 Respiratory Rate 16 16 16 Blood Pressure 158/82 H 162/93 H 142/94 H Pulse Oximetry 99 97 98 Oxygen Delivery 11/26/24 16:16 11/26/24 17:01 11/26/24 17:30 Temperature Pulse Rate 90 70 Respiratory Rate 16 16 Blood Pressure 162/89 H 162/80 H Pulse Oximetry 98 98 97 Oxygen Delivery 11/26/24 17:45 11/26/24 17:46 11/26/24 18:32 Temperature Pulse Rate 82 80 Respiratory Rate 16 16 Blood Pressure 159/66 H 150/67 H Pulse Oximetry 94 96 98 Oxygen Delivery 11/26/24 20:16 11/26/24 20:31 11/26/24 21:28 Temperature 98.6 F Pulse Rate 84 90 Respiratory Rate 15 14 Blood Pressure 154/55 H Pulse Oximetry 97 98 Oxygen Delivery Room Air 11/27/24 05:57 11/27/24 08:00 Temperature 97.1 F L Pulse Rate 60 Respiratory Rate 14 Blood Pressure 130/79 Pulse Oximetry 97 Oxygen Delivery Room Air Intake/Output Intake/Output: Intake & Output 11/24/24 11/25/24 11/26/24 11/27/24 23:59 23:59 23:59 23:59 Intake Total 500 Output Total 700 Balance -200 Meds/Results Medications: Active Medications Generic Name Dose Route Start Last Admin Trade Name Freq PRN Reason Stop Dose Admin Acetaminophen 650 mg 11/26/24 16:16 Acetaminophen 325 Mg Tablet PO Q4H PRN Mild Pain (1-3) or Fever Hydrocodone Bitart/Acetaminophen 1 tab 11/26/24 22:51 11/27/24 04:37 Hydrocodone/Acetaminophen (*Crx) 5-325 Mg Tablet PO 11/27/24 22:50 1 tab Q6H PRN Administration Pain Rated 4-6 Calcium Carbonate 500 mg 11/27/24 09:00 Calcium/Vitamin D 500 Mg/5 Mcg (200 I.U.) Tablet PO QAM [facility] Enoxaparin Sodium 40 mg 11/27/24 09:00 Enoxaparin 40 Mg/0.4 Ml Syringe SUB-Q DAILY [facility] Hydromorphone HCl 0.5 mg 11/26/24 22:53 11/27/24 03:06 Hydromorphone Hcl Inj (*Crx) 2 Mg/Ml Vial IV PUSH 11/27/24 16:15 0.5 mg Q4H PRN Administration Pain Rated 7-10 Lidocaine 1 patch 11/27/24 09:00 Lidocaine 5% Patch TRANSDERM DAILY [facility] Meloxicam 15 mg 11/27/24 09:00 Meloxicam 7.5 Mg Tablet PO QAM [facility] Metoprolol Tartrate 12.5 mg 11/27/24 09:00 Metoprolol Tartrate 12.5 Mg Tablet PO DAILY [facility] Metoprolol Tartrate 25 mg 11/27/24 09:00 Metoprolol Tartrate 25 Mg Tablet PO DAILY [facility] Ondansetron HCl 4 mg 11/26/24 16:16 11/27/24 03:07 Ondansetron Inj 4 Mg/2 Ml Vial IV PUSH 4 mg Q4H PRN Administration Nausea Pantoprazole Sodium 40 mg 11/27/24 09:00 Pantoprazole 40 Mg Tablet PO BID [facility] Radiology Results: ITS Impressions Venous Doppler Study 11/26/24 13:55 IMPRESSION: 1. No deep venous thrombosis in the right lower limb. Aorta w/Runoff CTA 11/26/24 14:30 IMPRESSION: No CTA evidence of peripheral vascular disease within the bilateral lower ex tremities Knee X-Ray 11/26/24 19:27 IMPRESSION: No acute osseous abnormality right knee. Mild osteoarthritic changes. Chondrocalcinosis. Labs Labs: Laboratory Results - last 24 hr 11/26/24 11/26/24 13:53 14:05 WBC 7.4 RBC 4.65 Hgb 14.1 Hct 42.4 MCV 91.2 MCH 30.3 MCHC 33.3 RDW 12.5 Plt Count 156 MPV 9.9 Immature Gran % (Auto) 0.5 Neut % (Auto) 68.3 Lymph % (Auto) 20.2 Dixon % (Auto) 10.2 H Eos % (Auto) 0.3 Baso % (Auto) 0.5 Lymph # (Auto) 1.49 Dixon # (Auto) 0.8 H Eos # (Auto) 0.0 Baso # (Auto) 0.0 Abs Immat Gran (auto) 0.04 H Absolute Neuts (auto) 5.0 Absolute Nucleated RBC 0.000 Nucleated RBC % 0.0 PT 13.1 INR 1.0 APTT 23.1 Sodium 140 Potassium 4.3 Chloride 104 Carbon Dioxide 26 Anion Gap 10 BUN 19 H Creatinine 0.99 1.20 Estim Creat Clear Calc 37 31 Estimated GFR 54 L 43 L Glucose 111 H Lactic Acid 1.3 Calcium 9.0 Total Bilirubin 1.1 AST 22 ALT 17 Alkaline Phosphatase 64 Total Protein 7.0 Albumin 4.0 Hospitalist MIPS Advance Care Plan I have confirmed that the patient's Advanced Care Plan is present, code status is documented, or surrogate decision maker is listed in patient medical record.: Yes Medication Reconciliation I have utilized all available resources to obtain, update and review the patients current medications (includes all prescriptions, OTC, herbals, cannabis, and nutritional supplements).: Yes
--- NOTE | 2024-11-27 09:05 | PC.NURSE ---
Returned to room per wheelchair from MRI.
[2024-11-27] MEDS: CALCIUM/VITAMIN D 500 MG/5 MCG (200 I.U.) TABLET PO (09:07)
[2024-11-27] MEDS: ENOXAPARIN 40 MG/0.4 ML SYRINGE SUB-Q (09:07)
[2024-11-27] MEDS: PANTOPRAZOLE 40 MG TABLET PO ×2 (09:07→16:22)
[2024-11-27] MEDS: LIDOCAINE 5% PATCH 1 PATCH TRANSDERM (09:07)
[2024-11-27 09:08] VITALS: PULSE 60
[2024-11-27] MEDS: METOPROLOL TARTRATE 12.5 MG TABLET PO (09:08)
[2024-11-27] MEDS: METOPROLOL TARTRATE 25 MG TABLET PO (09:08)
[2024-11-27] MEDS: KETOROLAC 15 MG/ML VIAL (*BKC) IV PUSH ×3 (09:11→19:41)
[2024-11-27] MEDS: ACETAMINOPHEN 325 MG TABLET 650 MG PO ×3 (09:12→23:37)
[2024-11-27] MEDS: GABAPENTIN 100 MG CAPSULE PO ×3 (09:13→16:22)
[2024-11-27 12:31] VITALS: O2SAT 96
[2024-11-27] MEDS: oxyCODONE HCL (*CRX) 5 MG TAB IR PO ×3 (13:46→23:36)
[2024-11-27] MEDS: TIZANIDINE HCL 4 MG TABLET PO (13:47)
[2024-11-27 14:00] VITALS: BP 112/68; PULSE 74; RESP 18; TEMP 36.3; O2SAT 97
[2024-11-27 20:01] VITALS: BP 124/65; PULSE 95; RESP 14; TEMP 36.4; O2SAT 98
[2024-11-28] MEDS: ACETAMINOPHEN 325 MG TABLET 650 MG PO ×4 (02:59→20:37)
[2024-11-28] MEDS: KETOROLAC 15 MG/ML VIAL (*BKC) IV PUSH (02:59)
[2024-11-28] MEDS: oxyCODONE HCL (*CRX) 5 MG TAB IR PO ×5 (04:40→20:38)
[2024-11-28 06:05] VITALS: BP 143/70; PULSE 63; RESP 20; TEMP 36.4; O2SAT 99
[2024-11-28 06:36] LABS: Hemoglobin 12.3 g/dL (12.0-15.0); Mean Corpuscular HGB Conc 32.4 g/dl (32-36); Mean Corpuscular Hemoglobin 30.6 pg (26-34); Mean Corpuscular Volume 94.5 fl (80-100); Mean Platelet Volume 10.1 fl (7.4-10.4); Platelet Count Result 135 k/mm3 (150-375); Red Blood Count 4.02 M/mm3 (4.2-5.4); Red Cell Distribution Width 12.5 % (11.5-14.5); White Blood Count 8.8 K/mm3 (4.5-10.0)
[2024-11-28 06:46] LABS: Anion Gap 7 mmol/L (4-12); Blood Urea Nitrogen 29 mg/dL (7-17); Calcium 8.7 mg/dL (8.4-10.2); Carbon Dioxide 28 mmol/L (22-30); Chloride 102 mmol/L (98-107); Estimated CRCL calculation 30 ml/min; Estimated Glomerular Filt Rate 42; Glucose 96 mg/dL (65-110); Potassium 3.9 mmol/L (3.4-5.0); Sodium 137 mmol/L (137-145)
[2024-11-28 08:17] VITALS: PULSE 86
[2024-11-28] MEDS: GABAPENTIN 100 MG CAPSULE PO ×3 (08:17→16:26)
[2024-11-28] MEDS: METOPROLOL TARTRATE 25 MG TABLET PO (08:17)
[2024-11-28] MEDS: CALCIUM/VITAMIN D 500 MG/5 MCG (200 I.U.) TABLET PO (08:17)
[2024-11-28] MEDS: ENOXAPARIN 40 MG/0.4 ML SYRINGE SUB-Q (08:17)
[2024-11-28] MEDS: PANTOPRAZOLE 40 MG TABLET PO ×2 (08:17→16:26)
[2024-11-28] MEDS: LIDOCAINE 5% PATCH 1 PATCH TRANSDERM (08:17)
[2024-11-28] MEDS: METOPROLOL TARTRATE 12.5 MG TABLET PO (08:18)
--- NOTE | 2024-11-28 10:22 | P.CONNS_ITS ---
Assessment and Plan Assessment and plan (1) Thoracic compression fracture: Code(s): S22.000A - Wedge compression fracture of unspecified thoracic vertebra, initial encounter for closed fracture Status: Acute Assessment and Plan: This is a 71-year-old female with a T11 chronic compression fracture secondary to osteopenia and likely recent falls. I do not think this fracture needs surgical intervention. I have recommended a TLSO brace to help manage the fracture. She may work with physical therapy and follow-up with nurse practitioner Esther Lazaro in 1 month in clinic for further follow-up. The interesting thing is that she has pain a sciatic distribution are right side however her L5-S1 region looks fine without any evidence of compression of her sciatic nerve. She does have some lumbar spondylosis worse on the right at L3-4 but she does not have any anterior thigh or L3 or L4 radicular symptoms. Nonetheless she does not wish to pursue surgery and she has not tried any conservative management. Therefore I recommend the patient be treated by the primary team, physical therapy, pain management and she trial conservative measures before entertaining any kind of surgical intervention. Consult date: 11/28/24 Reason for consult: Evaluation of T11 compression fracture HPI: Jody Zelaya is a 79 year old female who presents with 2 weeks of right-sided leg pain she notes that the pain radiates down the back of her leg on the right side. She also notes that sometimes she has pain in both buttocks. She does note that she has fallen over the past month and she has known history of osteopenia her MRI scan shows multilevel lumbar spondylosis with evidence of a chronic appearing T11 compression fracture. Neurosurgery was consulted for evaluation of the T11 compression fracture anemia and her multilevel severe spondylosis. Review of Systems 2 Review of Systems: Full review of systems was performed and negative other than what is listed in history of presenting illness [facility] Past Medical History Medical History (Updated 11/28/24 @ 10:24 by Maco Sousa MD) Depression Prolapse of female pelvic organs Kidney stones Gastroesophageal reflux disease Hypertension Chronic kidney disease, stage 3 Surgical History Surgical History (Updated 11/26/24 @ 22:39 by Yuni Serrano PA-C) History of colpocleisis History of appendectomy Family History Family History Mother COPD (chronic obstructive pulmonary disease) Father Suicide Social History Social History (Updated 11/26/24 @ 22:39 by Yuni Serrano PA-C) Social History: Surrogate medical decision maker: Stephanie Valle, daughter ([phone]). Code status: Full code. Smoking status: Never smoker Alcohol intake: never Substance use: never Do You Feel Safe in your Home?: Yes Lack of Transportation: No Lack of Food: Never True Current Housing: I Have Housing Concerned About Future Housing: No Difficulty Paying Gas/Electric Bills: No Difficulty Paying for Meds: No Currently Unemployed: No Education: High School Diploma/GED Difficulty w/ Childcare or Family Care: No Additional living arrangements comments: . She lives in her own home in [place] and is independent of daily activities of living. Spiritual care concerns: No Meds Home Medications and Allergies Home Medications ?Medication ?Instructions ?Recorded ?Confirmed ?Type calcium carb-ergocalciferol (vit 1 tablet PO DAILY 11/26/24 11/26/24 History D2) 600 mg calcium-200 unit tablet lidocaine 5 % topical patch 1 patch transdermal Q24H 11/26/24 11/26/24 History meloxicam 15 mg tablet 15 mg PO DAILY 11/26/24 11/26/24 History metoprolol tartrate 37.5 mg tablet 37.5 mg PO DAILY 11/26/24 11/26/24 History omeprazole 40 mg capsule,delayed 40 mg PO DAILY 11/26/24 11/26/24 History release tizanidine 4 mg capsule 4 mg PO HS PRN muscle spasms 11/26/24 11/26/24 History tramadol 50 mg tablet 50 mg PO BID PRN pain 11/26/24 11/26/24 History Allergies Allergy/AdvReac Type Severity Reaction Status Date / Time No Known Allergies Allergy Verified 11/26/24 11:22 Vital Signs Vital Signs - 24 hr 11/27/24 12:31 11/27/24 14:00 11/27/24 14:16 Temperature 97.3 F L Pulse Rate 74 Respiratory Rate 18 Blood Pressure 112/68 Pulse Oximetry 96 97 Oxygen Delivery Room Air Room Air 11/27/24 20:00 11/27/24 20:01 11/28/24 06:05 Temperature 97.6 F 97.5 F L Pulse Rate 95 63 Respiratory Rate 14 20 Blood Pressure 124/65 143/70 H Pulse Oximetry 98 99 Oxygen Delivery Room Air 11/28/24 07:32 11/28/24 08:00 11/28/24 08:17 Temperature Pulse Rate 86 Respiratory Rate Blood Pressure Pulse Oximetry Oxygen Delivery Room Air Room Air Exam 2 Narrative: Patient is awake alert in no acute distress She is full strength in iliopsoas, quadriceps, hamstrings, plantar flexors, dorsiflexors, EHL. Results Labs 11/28/24 06:17 11/28/24 06:17 Labs: Short CBC 11/28/24 Range/Units 06:17 WBC 8.8 (4.5-10.0) K/mm3 Hgb 12.3 (12.0-15.0) g/dL Hct 38.0 (37.0-47.0) % Plt Count 135 L (150-375) k/mm3 BMP 11/28/24 06:17 Sodium 137 Potassium 3.9 Chloride 102 Carbon Dioxide 28 BUN 29 H D Creatinine 1.24 H Glucose 96 Calcium 8.7
[2024-11-28 13:51] VITALS: BP 113/58; PULSE 65; RESP 18; TEMP 36.6; O2SAT 97
--- NOTE | 2024-11-28 17:26 | P.PNIM_ITS ---
Progress Note: A&P Assessment and Plan (1) Intractable pain: Code(s): R52 - Pain, unspecified Status: Acute Assessment and Plan: No CTA evidence of peripheral vascular disease within the bilateral lower extremities No deep venous thrombosis in the right lower limb. No acute osseous abnormality right knee MRI showing severe lumbar spondylosis and chronic T11 compression fracture Schedule Tylenol, scheduled Toradol, p.r.n. oxycodone, and gabapentin (2) Sciatica: Code(s): M54.30 - Sciatica, unspecified side Status: Acute Assessment and Plan: See plan above PT OT (3) Hypertension: Code(s): I10 - Essential (primary) hypertension Status: Acute Assessment and Plan: Continue home metoprolol (4) Chronic kidney disease, stage 3: Code(s): N18.30 - Chronic kidney disease, stage 3 unspecified Status: Acute Assessment and Plan: Avoid nephrotoxic medications Daily BMP Plan patient continue to c/o right leg pain and it is not controlled with current pain medications, patient had MRI of LS which showed Severe lumbar spondylosis and chronic T11 compression fracture. will consult neurosurgery and further recommendation to follow. Subjective Date/time seen: 11/28/24 17:26 Interval history: 79-year-old female with intermittent but chronic back pain with advanced degenerative spondylosis at L3-L4 and moderate degenerative spondylosis at L2-L3 on recent lumbar CT, hypertension, gastroesophageal reflux disease, kidney stones, and pelvic organ prolapse status post repair who presented to the emergency department for evaluation of back and right leg pain. Patient complaining of severe leg pain stating that she is having difficulty walking, pain meds adjusted and gabapentin added. patient continue to c/o right leg pain and it is not controlled with current pain medications, patient had MRI of LS which showed Severe lumbar spondylosis and chronic T11 compression fracture. will consult neurosurgery and further recommendation to follow. Review of Systems Review of Systems: 12 systems were reviewed and are negativ e except for as per HPI. Exam Narrative: Patient is comfortable, NAD HEENT: eyes are clear and none icteric LUNGS:CTA HEART: RR S1S2 ABD: BS+, Soft and nontender Lower extremities: no edema SKIN: nonjaundiced Neuro: grossly intact. Objective Data Vital Signs Vital Signs: Vital Signs - 24 hr 11/27/24 20:00 11/27/24 20:01 11/28/24 06:05 Temperature 36.4 C 36.4 C L Pulse Rate 95 63 Respiratory Rate 14 20 Blood Pressure 124/65 143/70 H Pulse Oximetry 98 99 Oxygen Delivery Room Air 11/28/24 07:32 11/28/24 08:00 11/28/24 08:17 Temperature Pulse Rate 86 Respiratory Rate Blood Pressure Pulse Oximetry Oxygen Delivery Room Air Room Air 11/28/24 13:51 Temperature 36.6 C Pulse Rate 65 Respiratory Rate 18 Blood Pressure 113/58 L Pulse Oximetry 97 Oxygen Delivery Intake/Output Intake/Output: Intake & Output 11/25/24 11/26/24 11/27/24 11/28/24 23:59 23:59 23:59 23:59 Intake Total 1980 1704 Output Total 700 700 Balance 1280 1004 Meds/Results Medications: Active Medications Generic Name Dose Route Start Last Admin Trade Name Freq PRN Reason Stop Dose Admin Acetaminophen 650 mg 11/27/24 09:00 11/28/24 15:28 Acetaminophen 325 Mg Tablet PO 650 mg Q6H [facility]SE[facility] Administration Calcium Carbonate 500 mg 11/27/24 09:00 11/28/24 08:17 Calcium/Vitamin D 500 Mg/5 Mcg (200 I.U.) Tablet PO 500 mg QAM [facility] Administration Enoxaparin Sodium 40 mg 11/27/24 09:00 11/28/24 08:17 Enoxaparin 40 Mg/0.4 Ml Syringe SUB-Q 40 mg DAILY [facility] Administration Gabapentin 100 mg 11/27/24 09:00 11/28/24 16:26 Gabapentin 100 Mg Capsule PO 100 mg TID [facility] Administration Lidocaine 1 patch 11/27/24 09:00 11/28/24 08:17 Lidocaine 5% Patch TRANSDERM 1 patch DAILY [facility] Administration Meloxicam 15 mg 11/27/24 09:00 Meloxicam 7.5 Mg Tablet PO QAM [facility] Metoprolol Tartrate 12.5 mg 11/27/24 09:00 11/28/24 08:18 Metoprolol Tartrate 12.5 Mg Tablet PO 12.5 mg DAILY [facility] Administration Metoprolol Tartrate 25 mg 11/27/24 09:00 11/28/24 08:17 Metoprolol Tartrate 25 Mg Tablet PO 25 mg DAILY [facility] Administration Ondansetron HCl 4 mg 11/26/24 16:16 11/27/24 03:07 Ondansetron Inj 4 Mg/2 Ml Vial IV PUSH 4 mg Q4H PRN Administration Nausea Oxycodone HCl 5 mg 11/27/24 08:54 11/28/24 16:55 Oxycodone Hcl (*Crx) 5 Mg Tab Ir PO 5 mg Q4H PRN Administration Pain Rated 4-6 Pantoprazole Sodium 40 mg 11/27/24 09:00 11/28/24 16:26 Pantoprazole 40 Mg Tablet PO 40 mg BID [facility] Administration Tizanidine HCl 4 mg 11/27/24 13:18 11/27/24 13:47 Tizanidine Hcl 4 Mg Tablet PO 4 mg HS PRN Administration muscle spasms Radiology Results: ITS Impressions Venous Doppler Study 11/26/24 13:55 IMPRESSION: 1. No deep venous thrombosis in the right lower limb. Aorta w/Runoff CTA 11/26/24 14:30 IMPRESSION: No CTA evidence of peripheral vascular disease within the bilateral lower extremities Knee X-Ray 11/26/24 19:27 IMPRESSION: No acute osseous abnormality right knee. Mild osteoarthritic changes. Chondrocalcinosis. Lumbar Spine MRI 11/27/24 10:37 IMPRESSION: 1. Severe lumbar spondylosis. 2. Chronic T11 compression fracture. Labs Labs: Laboratory Results - last 24 hr 11/28/24 06:17 WBC 8.8 RBC 4.02 L Hgb 12.3 Hct 38.0 MCV 94.5 MCH 30.6 MCHC 32.4 RDW 12.5 Plt Count 135 L MPV 10.1 Sodium 137 Potassium 3.9 Chloride 102 Carbon Dioxide 28 Anion Gap 7 BUN 29 H D Creatinine 1.24 H Estim Creat Clear Calc 30 Estimated GFR 42 L Glucose 96 Calcium 8.7 Quality VTE Prophylaxis VTE prophylaxis: pharmacologic ordered
[2024-11-28 21:37] VITALS: BP 128/68; PULSE 69; RESP 18; TEMP 35.8; O2SAT 98
[2024-11-28] MEDS: TIZANIDINE HCL 4 MG TABLET PO (23:36)
[2024-11-29] MEDS: ACETAMINOPHEN 325 MG TABLET 650 MG PO ×4 (01:47→20:18)
[2024-11-29 06:00] VITALS: BP 124/69; PULSE 66; RESP 18; TEMP 36.6; O2SAT 99
[2024-11-29] MEDS: oxyCODONE HCL (*CRX) 5 MG TAB IR PO ×2 (09:41→16:45)
[2024-11-29] MEDS: LIDOCAINE 5% PATCH 1 PATCH TRANSDERM (09:41)
[2024-11-29 09:42] VITALS: PULSE 80
[2024-11-29] MEDS: CALCIUM/VITAMIN D 500 MG/5 MCG (200 I.U.) TABLET PO (09:42)
[2024-11-29] MEDS: METOPROLOL TARTRATE 12.5 MG TABLET PO (09:42)
[2024-11-29] MEDS: PANTOPRAZOLE 40 MG TABLET PO ×2 (09:42→16:45)
[2024-11-29 09:43] VITALS: PULSE 80
[2024-11-29] MEDS: GABAPENTIN 100 MG CAPSULE PO ×3 (09:43→16:46)
[2024-11-29] MEDS: METOPROLOL TARTRATE 25 MG TABLET PO (09:43)
[2024-11-29] MEDS: ENOXAPARIN 40 MG/0.4 ML SYRINGE SUB-Q (09:43)
--- NOTE | 2024-11-29 12:56 | P.PNIM_ITS ---
Progress Note: A&P Assessment and Plan (1) Intractable pain: Code(s): R52 - Pain, unspecified Status: Acute Assessment and Plan: No CTA evidence of peripheral vascular disease within the bilateral lower extremities No deep venous thrombosis in the right lower limb. No acute osseous abnormality right knee MRI showing severe lumbar spondylosis and chronic T11 compression fracture Schedule Tylenol, scheduled Toradol, p.r.n. oxycodone, and gabapentin (2) Sciatica: Code(s): M54.30 - Sciatica, unspecified side Status: Acute Assessment and Plan: See plan above PT OT (3) Hypertension: Code(s): I10 - Essential (primary) hypertension Status: Acute Assessment and Plan: Continue home metoprolol (4) Chronic kidney disease, stage 3: Code(s): N18.30 - Chronic kidney disease, stage 3 unspecified Status: Acute Assessment and Plan: Avoid nephrotoxic medications Daily BMP Plan patient continue to c/o right leg pain and it is not controlled with current pain medications, patient had MRI of LS which showed Severe lumbar spondylosis and chronic T11 compression fracture. will consult neurosurgery and further recommendation to follow. Patient was seen by spinal surgeon and recommended possible surgical intervention however patient is not interested in any surgery, was prescribed TLSO patient will work with PT/OT, will continue pain management. possibly discharge patient tomorrow. Subjective Date/time seen: 11/29/24 12:56 Interval history: 79-year-old female with intermittent but chronic back pain with advanced degenerative spondylosis at L3-L4 and moderate degenerative spondylosis at L2-L3 on recent lumbar CT, hypertension, gastroesophageal reflux disease, kidney stones, and pelvic organ prolapse status post repair who presented to the emergency department for evaluation of back and right leg pain. Patient complaining of severe leg pain stating that she is having difficulty walking, pain meds adjusted and gabapentin added. patient continue to c/o right leg pain and it is not controlled with current pain medications, patient had MRI of LS which showed Severe lumbar spondylosis and chronic T11 compression fracture. will consult neurosurgery and further recommendation to follow. Patient was seen by spinal surgeon and recommended possible surgical intervention however patient is not interested in any surgery, was prescribed TLSO patient will work with PT/OT, will continue pain management. possibly discharge patient tomorrow. Review of Systems Review of Systems: 12 systems were reviewed and are negativ e except for as per HPI. Exam Narrative: Patient is comfortable, NAD HEENT: eyes are clear and none icteric LUNGS:CTA HEART: RR S1S2 ABD: BS+, Soft and nontender Lower extremities: no edema SKIN: nonjaundiced Neuro: grossly intact. Objective Data Vital Signs Vital Signs: Vital Signs - 24 hr 11/28/24 13:51 11/28/24 20:00 11/28/24 21:37 Temperature 36.6 C 35.8 C L Pulse Rate 65 69 Respiratory Rate 18 18 Blood Pressure 113/58 L 128/68 Pulse Oximetry 97 98 Oxygen Delivery Room Air 11/29/24 06:00 11/29/24 09:42 11/29/24 09:43 Temperature 36.6 C Pulse Rate 66 80 80 Respiratory Rate 18 Blood Pressure 124/69 Pulse Oximetry 99 Oxygen Delivery 11/29/24 09:43 Temperature Pulse Rate Respiratory Rate Blood Pressure Pulse Oximetry Oxygen Delivery Room Air Intake/Output Intake/Output: Intake & Output 11/26/24 11/27/24 11/28/24 11/29/24 23:59 23:59 23:59 23:59 Intake Total 19794 200 Output Total 700 700 Balance 1280 1404 200 Meds/Results Medications: Active Medications Generic Name Dose Route Start Last Admin Trade Name Freq PRN Reason Stop Dose Admin Acetaminophen 650 mg 11/27/24 09:00 11/29/24 09:42 Acetaminophen 325 Mg Tablet PO 650 mg Q6H [facility] Administration Calcium Carbonate 500 mg 11/27/24 09:00 11/29/24 09:42 Calcium/Vitamin D 500 Mg/5 Mcg (200 I.U.) Tablet PO 500 mg QAM [facility] Administration Enoxaparin Sodium 40 mg 11/27/24 09:00 11/29/24 09:43 Enoxaparin 40 Mg/0.4 Ml Syringe SUB-Q 40 mg DAILY [facility] Administration Gabapentin 100 mg 11/27/24 09:00 11/29/24 09:43 Gabapentin 100 Mg Capsule PO 100 mg TID [facility] Administration Lidocaine 1 patch 11/27/24 09:00 11/29/24 09:41 Lidocaine 5% Patch TRANSDERM 1 patch DAILY [facility] Administration Meloxicam 15 mg 11/27/24 09:00 Meloxicam 7.5 Mg Tablet PO QAM [facility] Metoprolol Tartrate 12.5 mg 11/27/24 09:00 11/29/24 09:42 Metoprolol Tartrate 12.5 Mg Tablet PO 12.5 mg DAILY [facility] Administration Metoprolol Tartrate 25 mg 11/27/24 09:00 11/29/24 09:43 Metoprolol Tartrate 25 Mg Tablet PO 25 mg DAILY [facility] Administration Ondansetron HCl 4 mg 11/26/24 16:16 11/27/24 03:07 Ondansetron Inj 4 Mg/2 Ml Vial IV PUSH 4 mg Q4H PRN Administration Nausea Oxycodone HCl 5 mg 11/27/24 08:54 11/29/24 09:41 Oxycodone Hcl (*Crx) 5 Mg Tab Ir PO 5 mg Q4H PRN Administration Pain Rated 4-6 Pantoprazole Sodium 40 mg 11/27/24 09:00 11/29/24 09:42 Pantoprazole 40 Mg Tablet PO 40 mg BID [facility] Administration Tizanidine HCl 4 mg 11/27/24 13:18 11/28/24 23:36 Tizanidine Hcl 4 Mg Tablet PO 4 mg HS PRN Administration muscle spasms Radiology Results: ITS Impressions Venous Doppler Study 11/26/24 13:55 IMPRESSION: 1. No deep venous thrombosis in the right lower limb. Aorta w/Runoff CTA 11/26/24 14:30 IMPRESSION: No CTA evidence of peripheral vascular disease within the bilateral lower extremities Knee X-Ray 11/26/24 19:27 IMPRESSION: No acute osseous abnormality right knee. Mild osteoarthritic changes. Chondrocalcinosis. Lumbar Spine MRI 11/27/24 10:37 IMPRESSION: 1. Severe lumbar spondylosis. 2. Chronic T11 compression fracture. Quality VTE Prophylaxis VTE prophylaxis: pharmacologic ordered
[2024-11-29 14:00] VITALS: BP 110/50; PULSE 67; RESP 14; TEMP 36.2; O2SAT 98
[2024-11-29] MEDS: oxyCODONE HCL (*CRX) 5 MG TAB IR 10 MG PO (20:18)
[2024-11-29] MEDS: KETOROLAC 15 MG/ML VIAL (*BKC) IV PUSH (20:19)
[2024-11-29] MEDS: CYCLOBENZAPRINE HCL 5 MG TABLET PO (21:14)
[2024-11-29 21:19] VITALS: BP 136/67; PULSE 67; RESP 18; TEMP 36.6; O2SAT 99
[2024-11-29 21:46] VITALS: PULSE 69; RESP 20; O2SAT 94
[2024-11-29] MEDS: MORPHINE SULFATE (*CRX) 2 MG/ML INJ IV PUSH (22:46)
[2024-11-30] MEDS: oxyCODONE HCL (*CRX) 5 MG TAB IR 10 MG PO ×3 (00:19→11:17)
[2024-11-30] MEDS: KETOROLAC 15 MG/ML VIAL (*BKC) IV PUSH (02:41)
[2024-11-30] MEDS: MORPHINE SULFATE (*CRX) 2 MG/ML INJ IV PUSH ×2 (02:42→08:42)
[2024-11-30] MEDS: ACETAMINOPHEN 325 MG TABLET 650 MG PO ×4 (02:42→22:42)
[2024-11-30] MEDS: CYCLOBENZAPRINE HCL 5 MG TABLET PO ×3 (05:10→22:42)
[2024-11-30 06:00] VITALS: BP 156/78; PULSE 73; RESP 18; TEMP 36.8; O2SAT 100
[2024-11-30] MEDS: CALCIUM/VITAMIN D 500 MG/5 MCG (200 I.U.) TABLET PO (08:38)
[2024-11-30] MEDS: ENOXAPARIN 40 MG/0.4 ML SYRINGE SUB-Q (08:39)
[2024-11-30] MEDS: PANTOPRAZOLE 40 MG TABLET PO ×2 (08:39→16:47)
[2024-11-30] MEDS: GABAPENTIN 300 MG CAPSULE PO ×3 (08:39→16:47)
[2024-11-30] MEDS: METOPROLOL TARTRATE 25 MG TABLET PO (08:39)
[2024-11-30] MEDS: METOPROLOL TARTRATE 12.5 MG TABLET PO (08:39)
[2024-11-30] MEDS: LIDOCAINE 5% PATCH 1 PATCH TRANSDERM (08:40)
[2024-11-30] MEDS: ONDANSETRON INJ 4 MG/2 ML VIAL IV PUSH (10:51)
[2024-11-30 14:00] VITALS: BP 127/61; PULSE 69; RESP 20; TEMP 36.5; O2SAT 98
--- NOTE | 2024-11-30 14:29 | P.PNIM_ITS ---
Progress Note: A&P Assessment and Plan (1) Intractable pain: Code(s): R52 - Pain, unspecified Status: Acute Assessment and Plan: No CTA evidence of peripheral vascular disease within the bilateral lower extremities No deep venous thrombosis in the right lower limb. No acute osseous abnormality right knee MRI showing severe lumbar spondylosis and chronic T11 compression fracture Schedule Tylenol, scheduled Toradol, p.r.n. oxycodone, and gabapentin (2) Sciatica: Code(s): M54.30 - Sciatica, unspecified side Status: Acute Assessment and Plan: See plan above PT OT (3) Hypertension: Code(s): I10 - Essential (primary) hypertension Status: Acute Assessment and Plan: Continue home metoprolol (4) Chronic kidney disease, stage 3: Code(s): N18.30 - Chronic kidney disease, stage 3 unspecified Status: Acute Assessment and Plan: Avoid nephrotoxic medications Daily BMP Plan 79-year-old female with intermittent but chronic back pain with advanced degenerative spondylosis at L3-L4 and moderate degenerative spondylosis at L2-L3 on recent lumbar CT, hypertension, gastroesophageal reflux disease, kidney stones, and pelvic organ prolapse status post repair who presented to the emergency department for evaluation of back and right leg pain. Patient complaining of severe leg pain stating that she is having difficulty walking, pain meds adjusted and gabapentin added. patient continue to c/o right leg pain and it is not controlled with current pain medications, patient had MRI of LS which showed Severe lumbar spondylosis and chronic T11 compression fracture. will consult neurosurgery and further recommendation to follow. on 11/28 patient was seen by spinal surgeon and recommended possible surgical intervention however patient is not interested in any surgery, was prescribed TLSO patient will work with PT/OT, will continue pain management. plan was to discharge patient today however patient pain is worsening and patient is considering surgical intervention. will reconsult spine surgeon. Subjective Date/time seen: 11/30/24 14:29 Interval history: 79-year-old female with intermittent but chronic back pain with advanced degenerative spondylosis at L3-L4 and moderate degenerative spondylosis at L2-L3 on recent lumbar CT, hypertension, gastroesophageal reflux disease, kidney stones, and pelvic organ prolapse status post repair who presented to the emergency department for evaluation of back and right leg pain. Patient complaining of severe leg pain stating that she is having difficulty walking, pain meds adjusted and gabapentin added. patient continue to c/o right leg pain and it is not controlled with current pain medications, patient had MRI of LS which showed Severe lumbar spondylosis and chronic T11 compression fracture. will consult neurosurgery and further recommendation to follow. on 11/28 patient was seen by spinal surgeon and recommended possible surgical intervention however patient is not interested in any surgery, was prescribed TLSO patient will work with PT/OT, will continue pain management. plan was to discharge patient today however patient pain is worsening and patient is conside ring surgical intervention. will reconsult spine surgeon. Review of Systems Review of Systems: 12 systems were reviewed and are negativ e except for as per HPI. Exam Narrative: Patient is comfortable, NAD HEENT: eyes are clear and none icteric LUNGS:CTA HEART: RR S1S2 ABD: BS+, Soft and nontender Lower extremities: no edema SKIN: nonjaundiced Neuro: grossly intact. Objective Data Vital Signs Vital Signs: Vital Signs - 24 hr 11/29/24 20:00 11/29/24 21:19 11/29/24 21:46 Temperature 36.6 C Pulse Rate 67 69 Respiratory Rate 18 20 Blood Pressure 136/67 Pulse Oximetry 99 94 Oxygen Delivery Room Air Room Air Fraction of Inspired Oxygen 24 11/30/24 06:00 11/30/24 08:00 Temperature 36.8 C Pulse Rate 73 Respiratory Rate 18 Blood Pressure 156/78 H Pulse Oximetry 100 Oxygen Delivery Room Air Fraction of Inspired Oxygen Intake/Output Intake/Output: Intake & Output 11/27/24 11/28/24 11/29/24 11/30/24 23:59 23:59 23:59 23:59 Intake Total 1979 2104 1540 740 Output Total 700 700 Balance 1280 1404 1540 740 Meds/Results Medications: Active Medications Generic Name Dose Route Start Last Admin Trade Name Freq PRN Reason Stop Dose Admin Acetaminophen 650 mg 11/27/24 09:00 11/30/24 08:38 Acetaminophen 325 Mg Tablet PO 650 mg Q6H [facility] Administration Calcium Carbonate 500 mg 11/27/24 09:00 11/30/24 08:38 Calcium/Vitamin D 500 Mg/5 Mcg (200 I.U.) Tablet PO 500 mg QAM [facility] Administration Cyclobenzaprine HCl 5 mg 11/29/24 20:05 11/30/24 13:22 Cyclobenzaprine Hcl 5 Mg Tablet PO 5 mg Q8HR [facility] Administration Enoxaparin Sodium 40 mg 11/27/24 09:00 11/30/24 08:39 Enoxaparin 40 Mg/0.4 Ml Syringe SUB-Q 40 mg DAILY [facility] Administration Gabapentin 300 mg 11/30/24 09:00 11/30/24 13:22 Gabapentin 300 Mg Capsule PO 300 mg TID [facility] Administration Ketorolac Tromethamine 15 mg 11/29/24 20:05 11/30/24 13:34 Ketorolac 15 Mg/Ml Vial (*Bkc) IV PUSH Not Given Q6H [facility] Lidocaine 1 patch 11/27/24 09:00 11/30/24 08:40 Lidocaine 5% Patch TRANSDERM 1 patch DAILY [facility] Administration Meloxicam 15 mg 11/27/24 09:00 Meloxicam 7.5 Mg Tablet PO QAM [facility] Metoprolol Tartrate 12.5 mg 11/27/24 09:00 11/30/24 08:39 Metoprolol Tartrate 12.5 Mg Tablet PO 12.5 mg DAILY [facility] Administration Metoprolol Tartrate 25 mg 11/27/24 09:00 11/30/24 08:39 Metoprolol Tartrate 25 Mg Tablet PO 25 mg DAILY [facility] Administration Morphine Sulfate 2 mg 11/29/24 22:22 11/30/24 08:42 Morphine Sulfate (*Crx) 2 Mg/Ml Inj IV PUSH 2 mg Q4H PRN Administration Pain Rated 7-10 Ondansetron HCl 4 mg 11/26/24 16:16 11/30/24 10:51 Ondansetron Inj 4 Mg/2 Ml Vial IV PUSH 4 mg Q4H PRN Administration Nausea Oxycodone HCl 5 mg 11/27/24 08:54 11/29/24 16:45 Oxycodone Hcl (*Crx) 5 Mg Tab Ir PO 5 mg Q4H PRN Administration Pain Rated 4-6 Oxycodone HCl 10 mg 11/29/24 20:03 11/30/24 11:17 Oxycodone Hcl (*Crx) 5 Mg Tab Ir PO 10 mg Q4H PRN Administration Pain Rated 7-10 Pantoprazole Sodium 40 mg 11/27/24 09:00 11/30/24 08:39 Pantoprazole 40 Mg Tablet PO 40 mg BID [facility] Administration Tizanidine HCl 4 mg 11/27/24 13:18 11/28/24 23:36 Tizanidine Hcl 4 Mg Tablet PO 4 mg HS PRN Administration muscle spasms Radiology Results: ITS Impressions Venous Doppler Study 11/26/24 13:55 IMPRESSION: 1. No deep venous thrombosis in the right lower limb. Aorta w/Runoff CTA 11/26/24 14:30 IMPRESSION: No CTA evidence of peripheral vascular disease within the bilateral lower extremities Knee X-Ray 11/26/24 19:27 IMPRESSION: No acute osseous abnormality right knee. Mild osteoarthritic changes. Chondrocalcinosis. Lumbar Spine MRI 11/27/24 10:37 IMPRESSION: 1. Severe lumbar spondylosis. 2. Chronic T11 compression fracture. Quality VTE Prophylaxis VTE prophylaxis: pharmacologic ordered
[2024-11-30 21:52] VITALS: BP 117/55; PULSE 68; RESP 20; TEMP 36.6; O2SAT 97
[2024-12-01] MEDS: ACETAMINOPHEN 325 MG TABLET 650 MG PO ×4 (03:01→20:34)
[2024-12-01] MEDS: oxyCODONE HCL (*CRX) 5 MG TAB IR 10 MG PO ×2 (03:01→14:40)
[2024-12-01] MEDS: CYCLOBENZAPRINE HCL 5 MG TABLET PO ×3 (05:22→21:35)
[2024-12-01 05:52] VITALS: BP 115/57; PULSE 70; RESP 16; TEMP 36.9; O2SAT 94
[2024-12-01] MEDS: KETOROLAC 15 MG/ML VIAL (*BKC) IV PUSH ×3 (08:02→20:32)
[2024-12-01] MEDS: GABAPENTIN 300 MG CAPSULE PO ×3 (08:03→17:22)
[2024-12-01] MEDS: CALCIUM/VITAMIN D 500 MG/5 MCG (200 I.U.) TABLET PO (08:03)
[2024-12-01] MEDS: LIDOCAINE 5% PATCH 1 PATCH TRANSDERM (08:03)
[2024-12-01] MEDS: PANTOPRAZOLE 40 MG TABLET PO ×2 (08:03→17:22)
[2024-12-01] MEDS: ENOXAPARIN 40 MG/0.4 ML SYRINGE SUB-Q (08:03)
[2024-12-01] MEDS: METOPROLOL TARTRATE 25 MG TABLET PO (08:03)
[2024-12-01] MEDS: METOPROLOL TARTRATE 12.5 MG TABLET PO (08:03)
[2024-12-01 08:25] LABS: Glucose Point of Care 104 mg/dl (65-105)
[2024-12-01] MEDS: MORPHINE SULFATE (*CRX) 2 MG/ML INJ IV PUSH ×3 (12:13→23:37)
[2024-12-01 12:16] LABS: Glucose Point of Care 124 mg/dl (65-105)
[2024-12-01 14:00] VITALS: BP 120/64; PULSE 72; RESP 20; TEMP 36.9
--- NOTE | 2024-12-01 16:27 | P.PNIM_ITS ---
Progress Note: A&P Assessment and Plan (1) Intractable pain: Code(s): R52 - Pain, unspecified Status: Acute Assessment and Plan: No CTA evidence of peripheral vascular disease within the bilateral lower extremities No deep venous thrombosis in the right lower limb. No acute osseous abnormality right knee MRI showing severe lumbar spondylosis and chronic T11 compression fracture Schedule Tylenol, scheduled Toradol, p.r.n. oxycodone, and gabapentin (2) Sciatica: Code(s): M54.30 - Sciatica, unspecified side Status: Acute Assessment and Plan: See plan above PT OT (3) Hypertension: Code(s): I10 - Essential (primary) hypertension Status: Acute Assessment and Plan: Continue home metoprolol (4) Chronic kidney disease, stage 3: Code(s): N18.30 - Chronic kidney disease, stage 3 unspecified Status: Acute Assessment and Plan: Avoid nephrotoxic medications Daily BMP Plan 79-year-old female with intermittent but chronic back pain with advanced degenerative spondylosis at L3-L4 and moderate degenerative spondylosis at L2-L3 on recent lumbar CT, hypertension, gastroesophageal reflux disease, kidney stones, and pelvic organ prolapse status post repair who presented to the emergency department for evaluation of back and right leg pain. Patient complaining of severe leg pain stating that she is having difficulty walking, pain meds adjusted and gabapentin added. patient continue to c/o right leg pain and it is not controlled with current pain medications, patient had MRI of LS which showed Severe lumbar spondylosis and chronic T11 compression fracture. will consult neurosurgery and further recommendation to follow. on 11/28 patient was seen by spinal surgeon and recommended possible surgical intervention however patient is not interested in any surgery, was prescribed TLSO patient will work with PT/OT, will continue pain management. plan was to discharge patient today however patient pain is worsening and patient is considering surgical intervention. patient discuss with surgeon and unfortunately there is not surgical options, will continue to monitor, patient daughter is present in the room, concern about managing pain at home, will discharge patient with current regiment, will discharge patient tomorrow. Subjective Date/time seen: 12/01/24 16:27 Interval history: 79-year-old female with intermittent but chronic back pain with advanced degenerative spondylosis at L3-L4 and moderate degenerative spondylosis at L2-L3 on recent lumbar CT, hypertension, gastroesophageal reflux disease, kidney stones, and pelvic organ prolapse status post repair who presented to the emergency department for evaluation of back and right leg pain. Patient complaining of severe leg pain stating that she is having difficulty wa lking, pain meds adjusted and gabapentin added. patient continue to c/o right leg pain and it is not controlled with current pain medications, patient had MRI of LS which showed Severe lumbar spondylosis and chronic T11 compression fracture. will consult neurosurgery and further recommendation to follow. on 11/28 patient was seen by spinal surgeon and recommended possible surgical intervention however patient is not interested in any surgery, was prescribed TLSO patient will work with PT/OT, will continue pain management. plan was to discharge patient today however patient pain is worsening and patient is considering surgical intervention. patient discuss with surgeon and unfortunately there is not surgical options, will continue to monitor, patient daughter is present in the room, concern about managing pain at home, will discharge patient with current regiment, will discharge patient tomorrow. Review of Systems Review of Systems: 12 systems were reviewed and are negativ e except for as per HPI. Exam Narrative: Patient is comfortable, NAD HEENT: eyes are clear and none icteric LUNGS:CTA HEART: RR S1S2 ABD: BS+, Soft and nontender Lower extremities: no edema SKIN: nonjaundiced Neuro: grossly intact. Objective Data Vital Signs Vital Signs: Vital Signs - 24 hr 11/30/24 20:00 11/30/24 21:52 12/01/24 05:52 Temperature 36.6 C 36.9 C Pulse Rate 68 70 Respiratory Rate 20 16 Blood Pressure 117/55 L 115/57 L Pulse Oximetry 97 94 Oxygen Delivery Room Air Intake/Output Intake/Output: Intake & Output 11/28/24 11/29/24 11/30/24 12/01/24 23:59 23:59 23:59 23:59 Intake Total 2104 1540 1530 480 Output Total 700 300 Balance 1404 1540 1530 180 Meds/Results Medications: Active Medications Generic Name Dose Route Start Last Admin Trade Name Freq PRN Reason Stop Dose Admin Acetaminophen 650 mg 11/27/24 09:00 12/01/24 08:03 Acetaminophen 325 Mg Tablet PO 650 mg Q6H RAMSEY Administration Calcium Carbonate 500 mg 11/27/24 09:00 12/01/24 08:03 Calcium/Vitamin D 500 Mg/5 Mcg (200 I.U.) Tablet PO 500 mg QAM RAMSEY Administration Cyclobenzaprine HCl 5 mg 11/29/24 20:05 12/01/24 12:12 Cyclobenzaprine Hcl 5 Mg Tablet PO 5 mg Q8HR RAMSEY Administration Enoxaparin Sodium 40 mg 11/27/24 09:00 12/01/24 08:03 Enoxaparin 40 Mg/0.4 Ml Syringe SUB-Q 40 mg DAILY RAMSEY Administration Gabapentin 300 mg 11/30/24 09:00 12/01/24 12:12 Gabapentin 300 Mg Capsule PO 300 mg TID RAMSEY Administration Ketorolac Tromethamine 15 mg 11/29/24 20:05 12/01/24 12:12 Ketorolac 15 Mg/Ml Vial (*Bkc) IV PUSH 15 mg Q6H RAMSEY Administration Lidocaine 1 patch 11/27/24 09:00 12/01/24 08:03 Lidocaine 5% Patch TRANSDERM 1 patch DAILY RAMSEY Administration Meloxicam 15 mg 11/27/24 09:00 Meloxicam 7.5 Mg Tablet PO QAM [facility] Metoprolol Tartrate 12.5 mg 11/27/24 09:00 12/01/24 08:03 Metoprolol Tartrate 12.5 Mg Tablet PO 12.5 mg DAILY RAMSEY Administration Metoprolol Tartrate 25 mg 11/27/24 09:00 12/01/24 08:03 Metoprolol Tartrate 25 Mg Tablet PO 25 mg DAILY RAMSEY Administration Morphine Sulfate 2 mg 11/29/24 22:22 12/01/24 12:13 Morphine Sulfate (*Crx) 2 Mg/Ml Inj IV PUSH 2 mg Q4H PRN Administration Pain Rated 7-10 Ondansetron HCl 4 mg 11/26/24 16:16 11/30/24 10:51 Ondansetron Inj 4 Mg/2 Ml Vial IV PUSH 4 mg Q4H PRN Administration Nausea Oxycodone HCl 5 mg 11/27/24 08:54 11/29/24 16:45 Oxycodone Hcl (*Crx) 5 Mg Tab Ir PO 5 mg Q4H PRN Administration Pain Rated 4-6 Oxycodone HCl 10 mg 11/29/24 20:03 12/01/24 14:40 Oxycodone Hcl (*Crx) 5 Mg Tab Ir PO 10 mg Q4H PRN Administration Pain Rated 7-10 Pantoprazole Sodium 40 mg 11/27/24 09:00 12/01/24 08:03 Pantoprazole 40 Mg Tablet PO 40 mg BID RAMSEY Administration Tizanidine HCl 4 mg 11/27/24 13:18 11/28/24 23:36 Tizanidine Hcl 4 Mg Tablet PO 4 mg HS PRN Administration muscle spasms Radiology Results: ITS Impressions Venous Doppler Study 11/26/24 13:55 IMPRESSION: 1. No deep venous thrombosis in the right lower limb. Aorta w/Runoff CTA 11/26/24 14:30 IMPRESSION: No CTA evidence of peripheral vascular disease within the bilateral lower extremities Knee X-Ray 11/26/24 19:27 IMPRESSION: No acute osseous abnormality right knee. Mild osteoarthritic changes. Chondrocalcinosis. Lumbar Spine MRI 11/27/24 10:37 IMPRESSION: 1. Severe lumbar spondylosis. 2. Chronic T11 compression fracture. Labs Labs: Laboratory Results - last 24 hr 12/01/24 12/01/24 07:42 11:50 POC Capillary Glucose 104 124 H Quality VTE Prophylaxis VTE prophylaxis: pharmacologic ordered
[2024-12-01 21:36] VITALS: BP 122/62; PULSE 85; RESP 16; TEMP 36.6; O2SAT 99
[2024-12-01] MEDS: oxyCODONE HCL (*CRX) 5 MG TAB IR PO (21:50)
[2024-12-02] MEDS: KETOROLAC 15 MG/ML VIAL (*BKC) IV PUSH ×2 (02:46→08:59)
[2024-12-02] MEDS: ACETAMINOPHEN 325 MG TABLET 650 MG PO ×2 (02:46→08:58)
[2024-12-02 05:55] VITALS: BP 112/64; PULSE 68; RESP 14; TEMP 36.4; O2SAT 96
[2024-12-02] MEDS: CYCLOBENZAPRINE HCL 5 MG TABLET PO (06:19)
[2024-12-02 08:00] VITALS: PULSE 68; RESP 14; O2SAT 96
[2024-12-02] MEDS: oxyCODONE HCL (*CRX) 5 MG TAB IR PO (08:57)
[2024-12-02] MEDS: ENOXAPARIN 40 MG/0.4 ML SYRINGE SUB-Q (08:58)
[2024-12-02] MEDS: CALCIUM/VITAMIN D 500 MG/5 MCG (200 I.U.) TABLET PO (08:58)
[2024-12-02] MEDS: PANTOPRAZOLE 40 MG TABLET PO (08:58)
[2024-12-02] MEDS: LIDOCAINE 5% PATCH 1 PATCH TRANSDERM (08:58)
[2024-12-02] MEDS: GABAPENTIN 300 MG CAPSULE PO (08:59)
[2024-12-02] MEDS: METOPROLOL TARTRATE 12.5 MG TABLET PO (08:59)
[2024-12-02] MEDS: METOPROLOL TARTRATE 25 MG TABLET PO (08:59)
--- NOTE | 2024-12-02 10:43 | PM.DS ---
DS: Admitting Diagnosis Discharge Date 12/02/24 Admitting Diagnosis Back and right leg pain. DS: Discharge Diagnosis Discharge Diagnosis (1) Sciatica: Code(s): M54.30 - Sciatica, unspecified side Status: Acute (2) Intractable pain: Code(s): R52 - Pain, unspecified Status: Acute (3) Chronic kidney disease, stage 3: Code(s): N18.30 - Chronic kidney disease, stage 3 unspecified Status: Acute (4) Hypertension: Code(s): I10 - Essential (primary) hypertension Status: Acute Plan 79-year-old female with intermittent but chronic back pain with advanced degenerative spondylosis at L3-L4 and moderate degenerative spondylosis at L2-L3 on recent lumbar CT, hypertension, gastroesophageal reflux disease, kidney stones, and pelvic organ prolapse status post repair who presented to the emergency department for evaluation of back and right leg pain. Patient complaining of severe leg pain stating that she is having difficulty walking, pain meds adjusted and gabapentin added. patient continue to c/o right leg pain and it is not controlled with current pain medications, patient had MRI of LS which showed Severe lumbar spondylosis and chronic T11 compression fracture. will consult neurosurgery and further recommendation to follow. on 11/28 patient was seen by spinal surgeon and recommended possible surgical intervention however patient is not interested in any surgery, was prescribed TLSO patient will work with PT/OT, will continue pain management. plan was to discharge patient today however patient pain is worsening and patient is considering surgical intervention. patient discuss with surgeon and unfortunately there is not surgical options, will continue to monitor, patient daughter is present in the room, concern about managing pain at home, will discharge patient with current regiment, will discharge patient tomorrow. DS: Summary Hospital Course Hospital Course: 79-year-old female with intermittent but chronic back pain with advanced degenerative spondylosis at L3-L4 and moderate degenerative spondylosis at L2-L3 on recent lumbar CT, hypertension, gastroesophageal reflux disease, kidney stones, and pelvic organ prolapse status post repair who presented to the emergency department for evaluation of back and right leg pain. Patient complaining of severe leg pain stating that she is having difficulty walking, pain meds adjusted and gabapentin added. patient continue to c/o right leg pain and it is not controlled with current pain medications, patient had MRI of LS which showed Severe lumbar spondylosis and chronic T11 compression fracture. will consult neurosurgery and further recommendation to follow. on 11/28 patient was seen by spinal surgeon and recommended possible surgical intervention however patient is not interested in any surgery, was prescribed TLSO patient will work with PT/OT, will continue pain management. plan was to discharge patient today however patient pain is worsening and patient is considering surgical intervention. patient discuss with surgeon and unfortunately there is no surgical options, will continue to monitor, patient daughter is present in the room, concern about managing pain at home, will discharge patient with current regiment, will discharge patient tomorrow. today patient pain is little better and patient is clinically stable and agrees with discharge plan to continue current pain regiment. Time Spent with Patient Time attestation: Total time spent providing and/or coordinating discharge services: Exam Narrative: Patient is comfortable, NAD HEENT: eyes are clear and none icteric LUNGS:CTA HEART: RR S1S2 ABD: BS+, Soft and nontender Lower extremities: no edema SKIN: nonjaundiced Neuro: grossly intact. DS: Data Data Completed and Pending Labs on day of discharge: Labs from last 24 hours 12/01/24 11:50 POC Capillary Glucose 124 H Discharge Plan Discharge Attending physician on discharge: Keny William Consulting providers: Maco Sousa Discharging Clinician: Ash Iqbal Patient Disposition: Home with Home Health Service Activity: as tolerated Diet: heart healthy Discharge Instructions: Per Care Coordination: [facility] ([phone]) has been arranged for physical and occupational therapy. They will call you regarding start of first visit. patient to follow up with her primary care provider as soon as possible, patient is instructed if any symptoms redevelop to go to nearest ER. Patient Instructions: Antibiotic Form Patient Language: Icelandic Stand Alone Forms: General Discharge Information Follow-up/Referrals: Maco Sousa MD [Physician] - Ambika Lew DO [Primary Care Provider] - Discharge Medications: New cyclobenzaprine 5 mg tablet 5 mg PO TID PRN (Reason: muscle spasm) Qty: 30 0RF gabapentin [Neurontin] 300 mg Capsule 300 mg PO TID Qty: 90 0RF naloxone [Rextovy] 4 mg/actuation spray,non-aerosol 4 mg intranasal Q3M PRN (Reason: opioid overdose) Qty: 2 0RF Rx Instructions: spray 1 dose into ONE nostril; alternate nostrils w each dose until help arrives Continued Caltrate 600 plus D 600 mg (1,500 mg)-800 unit tablet,chewable 1 tablet PO DAILY omeprazole 20 mg capsule,delayed release(DR/EC) 20 mg PO DAILY prednisone 20 mg tablet 40 mg PO DAILY 5 Days Qty: 10 0RF lidocaine [Lidoderm] 5 % adhesive patch,medicated 1 patch topical DAILY Qty: 15 0RF Rx Instructions: leave on most painful area for up to 12 hrs meloxicam 15 mg tablet 15 mg PO DAILY metoprolol tartrate 37.5 mg tablet 37.5 mg PO DAILY lidocaine 5 % adhesive patch,medicated 1 patch transdermal Q24H Patient Comments: right leg calcium carbonate-vitamin D2 600 mg calcium- 200 unit tablet 1 tablet PO DAILY omeprazole 40 mg capsule,delayed release(DR/EC) 40 mg PO DAILY hydrocodone-acetaminophen 5-325 mg tablet 1 tablet PO Q6H PRN (Reason: pain) 3 Days Qty: 15 0RF meloxicam 15 mg tablet 15 mg PO DAILY Qty: 14 0RF metoprolol tartrate 37.5 mg tablet 37.5 mg PO DAILY Qty: 90 1RF tizanidine 4 mg tablet 4 mg PO QHS PRN (Reason: muscle spasticity) Qty: 30 0RF Held tramadol 50 mg tablet 50 mg PO BID PRN (Reason: pain) Hold Instructions: until seen by primary care provider tizanidine 4 mg capsule 4 mg PO HS PRN (Reason: muscle spasms) Hold Instructions: until seen by her primary care provider tramadol 50 mg tablet 50 mg PO BID PRN (Reason: pain) Qty: 60 3RF Hold Instructions: until seen by her primary care provider Date of admission: 11/27/24 15:01 Primary Care Provider: Ambika Lew Admitting Provider: Keny William Attending physician on admission: Keny William Condition: Stable
[2024-12-02] MEDS: oxyCODONE HCL (*CRX) 5 MG TAB IR 10 MG PO (13:07)
== END 2024-12-02 13:37 | disposition home health service (06) | DRG 552 ==
LOC: ANHED 15:22 → ANH3MEDSUR 11-27 09:50
PROVIDERS: Nurse Practitioner Gerontology; Admitting Provider Internal Medicine; Emergency Provider Emergency Medicine; PCP Family Medicine; Visit Provider Family Medicine
DX: M54.41 Lumbago with sciatica, right side (principal); M47.26 Other spondylosis with radiculopathy, lumbar region; M48.54XS Collapsed vertebra, not elsewhere classified, thoracic region, sequela of fracture; M85.88 Other specified disorders of bone density and structure, other site; I12.9 Hypertensive chronic kidney disease with stage 1 through stage 4 chronic kidney disease, or unspecified chronic kidney disease; N18.30 Chronic kidney disease, stage 3 unspecified; K21.9 Gastro-esophageal reflux disease without esophagitis; F32.A Depression, unspecified; Z87.442 Personal history of urinary calculi
CPT/HCPCS: 36415; 72148; 73562; 75635; 80048; 80053; 82948; 83605; 85025; 85027; 85610; 85730; 93971; 96372; 96374; 96375; 96376; 97110; 97116; 97161; 97165; 97530; 97535; 99285; A9270; G0378; J1171; J1650; J1885; J2270; J2405; J2919; Q9967

== ENCOUNTER 2025-01-15 16:48 | Inpatient (IN) | payer MEDICARE, OTHER, SELFPAY ==
[2025-01-15] VITALS (10 sets, daily range): BP systolic 129–185; BP diastolic 69–97; PULSE 77–99; RESP 11–18; TEMP 36.3–36.7; O2SAT 95–100; BMI 28.0
--- NOTE | ~2025-01-15 | XR_ITS ---
XR wrist RT 2V Ordering provider: Jm Arora MD History: . reduction . Comparison: January 15, 2025 6:30 PM FINDINGS/impression: Fracture in the distal metaphysis of the right radius with improved alignment anteriorly/posteriorly compared to previous study. Lateral displacement seen. Status post placement in a cast. Reviewed, dictated and finalized at location A.
--- NOTE | ~2025-01-15 | CT_ITS ---
CT brain wo con Ordering provider: Jm Arora MD History: 79 years Female with . fall . Comparison: None. Technique: CT of the head without contrast. Radiation reduction technique utilized.The dose-length pr oduct was 681 mGy-cm. FINDINGS: BRAIN PARENCHYMA AND CSF SPACES: Mild leukoaraiosis and diffuse cortical atrophy. Mild atheromatous d isease. No midline shift, mass effect or hemorrhage. The brain parenchyma and CSF spaces are otherwi se normal. Empty sella turcica. VISUALIZED PARANASAL SINUSES: Well aerated. Right Nasal septal deviation. Left middle julian bullosa. MASTOIDS: Well aerated. BONES: Sclerotic area in the right subapical condyle. Follow-up advised. Otherwise, The bones appear intact. SOFT TISSUES: Visualized nasopharynx is normal. Superficial soft tissues are normal. IMPRESSION: No acute intracranial findings. Reviewed, dictated and finalized at location A.
--- NOTE | ~2025-01-15 | XR_ITS ---
EXAMINATION: XR surgery orthopedic DATE: 01/16/2025 15:55 CDT INDICATION: ORIF RIGHT DISTAL RADIUS . TECHNIQUE: 4 fluoroscopic images of the right wrist were obtained during right distal radius ORIF, pe rformed by Michael Charles MD. I was not present during the procedure. Fluoroscopy exposure time was 35.3 seconds. Air Kerma 1.1143 mGy. DAP 0.2209 mGym2. COMPARISON: Same date at 6:42 PM FINDINGS/IMPRESSION: Fluoroscopic documentation of right distal radius ORIF. Please refer to the operative note for comple te procedural details . Reviewed, dictated and finalized at location K.
--- NOTE | ~2025-01-15 | XR_ITS ---
XR wrist RT 2V Ordering provider: Jm Arora MD History: . reduction . Comparison: January 15, 2025 FINDINGS/impression: BONES: Fracture in the distal metaphysis of the right radius with posterior and lateral displacement and minimal change from previous examination. Status post placement in a cast. Other appearances are unchanged. Reviewed, dictated and finalized at location A.
--- NOTE | ~2025-01-15 | XR_ITS ---
XR wrist RT 2V Ordering provider: Jm Arora MD History: . trauma . Comparison: None. FINDINGS: BONES: Displaced Fracture is seen in the distal metaphysis of the right radius with the distal fragme nt is displaced posteriorly. Fracture of the ulnar styloid. JOINT SPACES: Normal. SOFT TISSUES: Normal. IMPRESSION: Fracture in the distal metaphysis of the right radius. Reviewed, dictated and finalized at location A.
--- NOTE | 2025-01-15 17:20 | ED_ITS ---
HPI - Extremity Injury (Upper) General Chief Complaint: Extremity Injury, Upper Stated Complaint: right arm injury Time Seen by Provider: 01/15/25 17:00 History of Present Illness HPI narrative: And patient is 79-year-old female who presents ER with right wrist pain. She tripped and fell while in her room not using her Rollator. She just got out a [place] yesterday. She hit her head on her arm. She does not think she lost consciousness. She is not on any blood thinning medications. No fevers or chills or sweats. Related Data Home Medications ?Medication ?Instructions ?Recorded ?Confirmed ?Last Taken ?Type calcium 600 mg (as carbonate)-vit 1 tablet PO DAILY 04/08/20 12/04/24 02/05/24 History D3 20 mcg (800 unit) chewable tablet (Caltrate plus D) omeprazole 20 mg capsule,delayed 20 mg PO DAILY 04/08/20 12/04/24 02/07/24 History release meloxicam 15 mg tablet 15 mg PO DAILY 11/26/24 12/04/24 11/26/24 History tizanidine 4 mg capsule 4 mg PO HS PRN muscle spasms 11/26/24 11/26/24 11/25/24 History Allergies Allergy/AdvReac Type Severity Reaction Status Date / Time No Known Allergies Allergy Mild Verified 01/15/25 16:51 Review of Systems Review of Systems: All systems reviewed & are unremarkable except as noted in HPI and below Constitutional: Constitutional: Reports no additional constitutional complaints ENT: Reports system reviewed and no additional complaints, except as do cumented Cardiovascular: Cardiovascular: Reports no additional cardiovascular complaints Musculoskeletal: Musculoskeletal: Reports no additional musculoskeletal complaints [facility] Past Medical History Medical History Depression Prolapse of female pelvic organs Kidney stones Gastroesophageal reflux disease Hypertension Chronic kidney disease, stage 3 Encounter for dual-energy x-ray absoptiometry review Mammogram normal Obesity Hearing problem Hepatitis C antibody test negative (07/24/17) Surgical History Surgical History History of colpocleisis History of appendectomy History of appendectomy Family History Family History Mother Diabetes mellitus Sibling Depression Father Depression Family history of suicide Hypertension Grandparent Family history of cardiovascular disease Family history of coronary artery disease Mother COPD (chronic obstructive pulmonary disease) Father Suicide Other No family history of diabetes mellitus No family history of hypertension No family history of malignant neoplasm Social History Social History Social History: Surrogate medical decision maker: Stephanie Valle, daughter ([phone]). Code status: Full code. Smoking status: Never smoker Alcohol intake: never Substance use: never Substance use type: does not use Do You Feel Safe in your Home?: Yes Lack of Transportation: No Lack of Food: Never True Current Housing: I Have Housing Concerned About Future Housing: No Difficulty Paying Gas/Electric Bills: No Difficulty Paying for Meds: No Currently Unemployed: No Education: Grade School Difficulty w/ Childcare or Family Care: No Living arrangements: alone Additional living arrangements comments: . She lives in her own home in [place] and is independent of daily activities of living. Occupation/Education: retired Gender identity (if verbalized by the patient): Female Sexual Orientation (if Verbalized by the Patient): Straight or Heterosexual Spiritual care concerns: No Agree to blood products: Yes Exam Narrative: GENERAL: Well-appearing, well-nourished, and in no acute distress. HEAD: Normocephalic, atraumatic. EYES: PERRL and EOMI. ENT: Mucous membranes moist. CHEST: Clear to auscultation. No respiratory distress. HEART: Regular rate and rhythm. Normal peripheral pulses. EXTREMITIES: Right wrist deformity with normal sensation and perfusion to the hand. No tenderness at the elbow or shoulder. Normal lower extremities and left upper extremity. SKIN: Warm, dry, no rash. NEURO: Alert and oriented x3. PSYCH: Normal mood and affect. Course Course Emergency Course: Admit to hospitalist service. Orthopedic surgery consult. Splint applied. Ne urovascular intact. Vital Signs Vital signs: Vital Signs Temperature 98.1 F 01/15/25 16:47 Pulse Rate 77 01/15/25 16:47 Respiratory Rate 18 01/15/25 16:47 Blood Pressure 148/69 H 01/15/25 16:47 Pulse Oximetry 100 01/15/25 16:47 Oxygen Delivery Room Air 01/15/25 16:47 Temperature 97.6 F 01/15/25 18:19 Pulse Rate 83 01/15/25 18:41 Respiratory Rate 18 01/15/25 18:41 Blood Pressure 174/78 H 01/15/25 18:41 Pulse Oximetry 100 01/15/25 18:41 Oxygen Delivery Nasal Cannula 01/15/25 18:41 Oxygen Flow Rate 2 01/15/25 18:41 Procedures Laceration Laceration 1: Date: 01/15/25 Time: 18:30 Site: upper extremity (distal forearm ulnar aspect) Side (If applicable): right Size (cm): 0.5 Description: linear Depth: simple, single layer Local Anesthetic: lidocaine 1% and with epi Amount of anesthesia used (mL): 2 Pre-repair: wound explored and irrigated ====== Skin Level ====== Skin layer closed with: nylon Size (cm): 3-0 Number of sutures: 1 Technique: simple, interrupted ====== Subcutaneous Layer ====== ====== Muscle Layer ====== ====== Tendon Layer ====== Procedural Sedation Procedural Sedation #1: Procedural Sedation Date: 01/15/25 Procedural Sedation Time: 18:40 Presedation Evaluation: Awake, alert, orient x4. Procedure: Right wrist fracture reduction with splinting Provider Performed: sedation and procedure Informed Consent Obtained: yes Equipment in Room: bag and mask, capnography, site monitor, crash cart, oxygen, pulse oximeter and suction Plan for Sedation: moderate sedation ASA Class: II Mallampati Classification: class II Explanation to Patient/Family: Risk/Benefits/Alternatives Pt. Educated on Procedural Sedation: Yes Re-evaluated immediately prior: Yes Preparation: site monitor applied, pulse oximeter, capnometry used, supplemental O2 applied, reversal agents at bedside, suction/airway equipment at bedside and IV secured IV Propofol dose (mg): 80 Patient Tolerated Procedure: well Additional Comments: Patient only mildly sedated. Had some pain with manipulation. Also received Ativan 0.5 mg. MDM - Extremity Injury (Upper) Imaging Data Radiologist's impression: ITS Impressions Head CT 01/15/25 17:33 IMPRESSION: No acute intracranial findings. Wrist X-Ray 06/05/25 18:15 IMPRESSION: Fracture in the distal metaphysis of the right radius. Discharge Plan Discharge Clinical Impression: Distal radius fracture, right Patient Disposition: Still a Patient Condition: Stable Patient Language: Cymraes Prescriptions: No Action Caltrate 600 plus D 600 mg (1,500 mg)-800 unit tablet,chewable 1 tablet PO DAILY omeprazole 20 mg capsule,delayed release(DR/EC) 20 mg PO DAILY lidocaine [Lidoderm] 5 % adhesive patch,medicated 1 patch topical DAILY Qty: 15 0RF Rx Instructions: leave on most painful area for up to 12 hrs meloxicam 15 mg tablet 15 mg PO DAILY tizanidine 4 mg capsule 4 mg PO HS PRN (Reason: muscle spasms) cyclobenzaprine 5 mg tablet 5 mg PO TID PRN (Reason: muscle spasm) Qty: 30 0RF gabapentin [Neurontin] 300 mg Capsule 300 mg PO TID Qty: 90 0RF naloxone [Rextovy] 4 mg/actuation spray,non-aerosol 4 mg intranasal Q3M PRN (Reason: opioid overdose) Qty: 2 0RF Rx Instructions: spray 1 dose into ONE nostril; alternate nostrils w each dose until help arrives tramadol 50 mg tablet 50 mg PO BID PRN (Reason: pain) Qty: 60 3RF metoprolol tartrate 37.5 mg tablet 37.5 mg PO DAILY Qty: 90 1RF Follow-up/Referrals: Ambika Lew DO [Primary Care Provider] -
--- NOTE | 2025-01-15 17:46 | ECG_ITS ---
Test Date: 2025-01-15 17:51:45 Measurements Intervals [place] Rate: 70 P: 56 MO: 158 QRS: 44 QRSD: 80 T: 53 QT: 379 QTc: 409 Interpretive Statements SINUS RHYTHM BASELINE ARTIFACT- AVR, AVL, AVF NORMAL ECG Compared to ECG 01/28/2024 11:18:01 No significant changes Electronically Signed On 01-15-2025 19:15:55 CDT by Zelalem Dodson D.O.
[2025-01-15] MEDS: PROPOFOL IV EMULSION 200 MG/20 ML VIAL 100 MG IV PUSH (18:18)
--- NOTE | 2025-01-15 18:18 | PC.NURSE ---
50mg propofol given by Dr Arora
--- NOTE | 2025-01-15 18:20 | PC.NURSE ---
30mg propofol given by Dr Arora
[2025-01-15] MEDS: HYDROmorphone HCL INJ (*CRX) 2 MG/ML VIAL 0.5 MG IV PUSH (18:37)
[2025-01-15] MEDS: SODIUM CHLORIDE 0.9% IV 1,000 ML 1000 ML (18:38)
[2025-01-15] MEDS: LIDO 1%/EPINEPHRINE 1:100,000 20 ML VIAL (18:38)
--- NOTE | 2025-01-15 20:18 | P.HP_ITS ---
H&P: HPI History of Present Illness Date/Time: 01/15/25 20:18 Chief Complaint: Right wrist fracture, fall, poorly controlled pain Narrative: This is a 79-year-old female patient with history as listed below who was admitted to the hospital for Orthopedics to evaluate and treat fractured and dislocated right distal radius. Patient had just been discharged home from [facility] after 5 weeks of therapy for right sided low back pain radiating down the leg. She was reaching for something when she tripped and fell forward landing on outstretched right wrist. Patient was not using her Rollator because she did not think she had very far to go. Patient reports she had not even picked her medication up from the pharmacy yet when this happened. She denies loss of consciousness. Patient reports she had a small cut to her right forearm that had a stitch placed in ER. CT scan of head was unremarkable. XR right wrist showed displaced distal radius fracture. Closed reduction was attempted in the emergency department but unable to reduce as patient was experiencing a lot of pain and was not adequately sedated. She has a very high tolerance for pain and sedation medications. Orthopedics, Dr. Drake son, was consulted and requested patient be admitted with plan to reduce fracture in the morning. Review of Systems Review of Systems: All systems reviewed & are unremarkable except as noted in HPI and below PMFSH Past Medical History Medical History Depression Prolapse of female pelvic organs Kidney stones Gastroesophageal reflux disease Hypertension Chronic kidney disease, stage 3 Encounter for dual-energy x-ray absoptiometry review Mammogram normal Obesity Hearing problem Hepatitis C antibody test negative (07/24/17) Surgical History Surgical History History of colpocleisis History of appendectomy History of appendectomy Family History Family History Mother Diabetes mellitus Sibling Depression Father Depression Family history of suicide Hypertension Grandparent Family history of cardiovascular disease Family history of coronary artery disease Mother COPD (chronic obstructive pulmonary disease) Father Suicide Other No family history of diabetes mellitus No family history of hypertension No family history of malignant neoplasm Social History Social History Social History: Surrogate medical decision maker: Stephanie Valle, daughter ([phone]). Code status: Full code. Smoking status: Never smoker Alcohol intake: former Drinks per week: 1 Substance use: never Substance use type: does not use Do You Feel Safe in your Home?: Yes Lack of Transportation: No Lack of Food: Never True Current Housing: I Do Not Have Housing Concerned About Future Housing: No Difficulty Paying Gas/Electric Bills: No Difficulty Paying for Meds: No Currently Unemployed: No Education: Don't Know Difficulty w/ Childcare or Family Care: No Living arrangements: alone Additional living arrangements comments: . She lives in her own home in [place] and is independent of daily activities of living. Occupation/Education: retired Gender identity (if verbalized by the patient): Female Sexual Orientation (if Verbalized by the Patient): Straight or Heterosexual Spiritual care concerns: No Agree to blood products: Yes Meds Home Medications and Allergies Home Medications ?Medication ?Instructions ?Recorded ?Confirmed ?Type calcium 600 mg (as carbonate)-vit 1 tablet PO DAILY 04/08/20 01/15/25 History D3 20 mcg (800 unit) chewable tablet (Caltrate plus D) metoprolol tartrate 37.5 mg tablet 37.5 mg PO DAILY #90 tabs 10/30/24 01/15/25 Rx cyclobenzaprine 5 mg tablet 5 mg PO TID PRN muscle spasm #30 12/02/24 01/15/25 Rx tabs naloxone 4 mg/actuation nasal 4 mg intranasal Q3M PRN opioid 12/02/24 01/15/25 Rx spray (Rextovy) overdose #2 ea gabapentin 300 mg capsule 300 mg PO Q8H 01/15/25 01/15/25 History (Neurontin) Allergies Allergy/AdvReac Type Severity Reaction Status Date / Time No Known Allergies Allergy Mild Verified 01/15/25 21:59 Vital Signs Vital Signs - 24 hr 01/15/25 16:47 01/15/25 18:05 01/15/25 18:16 Temperature 36.7 C Pulse Rate 77 Pulse Rate [Monitor] 82 Respiratory Rate 18 13 13 Blood Pressure 148/69 H Blood Pressure [Left Arm] 165/76 H 164/86 H Pulse Oximetry 100 100 100 Oxygen Delivery Room Air Nasal Cannula Nasal Cannula Oxygen Flow Rate 2 2 01/15/25 18:19 01/15/25 18:23 01/15/25 18:41 Temperature 36.4 C Pulse Rate Pulse Rate [Monitor] 83 88 83 Respiratory Rate 12 13 18 Blood Pressure Blood Pressure [Left Arm] 164/86 H 185/97 H 174/78 H Pulse Oximetry 100 97 100 Oxygen Delivery Nasal Cannula Nasal Cannula Nasal Cannula Oxygen Flow Rate 2 2 2 Exam Narrative: GENERAL: Well-appearing, well-nourished, and in no acute distress. HEAD: Normocephalic, atraumatic. EYES: PERRL and EOMI. ENT: Mucous membranes moist. CHEST: Clear to auscultation. No respiratory distress. HEART: Regular rate and rhythm. Normal peripheral pulses. EXTREMITIES: Right wrist in splint, cap refill, motor and sensation intact SKIN: Warm, dry, no rash. NEURO: Alert and oriented x3. H&P: Results Pulse Oximetry SpO2 results: 94-100% on room air Attestation: I personally reviewed and interpreted this pulse oximetry as follows: Interpretation: No need for supplemental oxygenation at this time ECG Attestation: I personally reviewed and interpreted this ECG as follows: ECG completion date: 01/15/25 ECG completion time: 17:51 Prior ECG tracings: available for review Interpretation: Sinus rhythm rate of 70 OH interval 158 QRS duration ED QTC 409 QRS axis 44 no STEMI or acute ischemic changes Imaging CT scan - head: Radiologist's impression: CT brain wo con Ordering provider: Jm Arora MD History: 79 years Female with . fall . Comparison: None. Technique: CT of the head without contrast. Radiation reduction technique utilized.The dose-length product was 681 mGy-cm. FINDINGS: BRAIN PARENCHYMA AND CSF SPACES: Mild leukoaraiosis and diffuse cortical atrophy. Mild atheromatous disease. No midline shift, mass effect or hemorrhage. The brain parenchyma and CSF spaces are otherwise normal. Empty sella turcica. VISUALIZED PARANASAL SINUSES: Well aerated. Right Nasal septal deviation. Left middle julian bullosa. MASTOIDS: Well aerated. BONES: Sclerotic area in the right subapical condyle. Follow-up advised. Otherwise, The bones appear intact. SOFT TISSUES: Visualized nasopharynx is normal. Superficial soft tissues are normal. IMPRESSION: No acute intracranial findings. Reviewed, dictated and finalized at location A. Wrist Xray: Radiologist's impression: XR wrist RT 2V Ordering provider: Jm Arora MD History: . trauma . Comparison: None. FINDINGS: BONES: Displaced Fracture is seen in the distal metaphysis of the right radius with the distal fragment is displaced posteriorly. Fracture of the ulnar styloid. JOINT SPACES: Normal. SOFT TISSUES: Normal. IMPRESSION: Fracture in the distal metaphysis of the right radius. Reviewed, dictated and finalized at location A. XR wrist RT 2V Ordering provider: Jm Arora MD History: . reduction . Comparison: January 15, 2025 FINDINGS/impression: BONES: Fracture in the distal metaphysis of the right radius with posterior and lateral displacement and minimal change from previous examination. Status post placement in a cast. Other appearances are unchanged. Reviewed, dictated and finalized at location A. XR wrist RT 2V Ordering provider: Jm Arora MD History: . reduction . Comparison: January 15, 2025 6:30 PM FINDINGS/impression: Fracture in the distal metaphysis of the right radius with improved alignment anteriorly/posteriorly compared to previous study. Lateral displacement seen. Status post placement in a cast. Reviewed, dictated and finalized at location A. Assessment and Plan Assessment and plan (1) Distal radius fracture, right: Code(s): S52.501A - Unspecified fracture of the lower end of right radius, initial encounter for closed fracture Status: Acute Assessment and Plan: -Distal radius fracture and dislocation -ER repaired laceration -ER attempted sedation and closed fracture reduction but patient was still awake after propofol 80 mg, IV Dilaudid 1 mg and Ativan 0.5 mg -Minimal change in imaging after reduction attempt -Orthopedics consulted and requested admission for pain control with plan to go to OR for repair in the morning -Patient reports it takes a lot to knock me out (2) Intractable pain: Code(s): R52 - Pain, unspecified Status: Acute Assessment and Plan: -Patient with high tolerance to pain medication, unable to be safely sedated in ER -Nursing staff found patient taking [place] 7.5 mg tablets and secured belongings -Pain somewhat improved with 1 mg IV Dilaudid dosing (3) Hypertensive chronic kidney disease with stage 1 through stage 4 chronic kidney disease, or unspecified chronic kidney disease: Code(s): I12.9 - Hypertensive chronic kidney disease with stage 1 through stage 4 chronic kidney disease, or unspecified chronic kidney disease Status: Acute Assessment and Plan: -Renal function appears to be at baseline with eGFR 56 (4) Metabolic syndrome: Code(s): E88.81 - Metabolic syndrome and other insulin resistance Status: Acute Assessment and Plan: -A1c routinely 5.5-5.7 Quality VTE Prophylaxis VTE prophylaxis: mechanical ordered Hospitalist MIPS Advance Care Plan I have confirmed that the patient's Advanced Care Plan is present, code status is documented, or surrogate decision maker is listed in patient medical record.: Yes Medication Reconciliation I have utilized all available resources to obtain, update and review the patients current medications (includes all prescriptions, OTC, herbals, cannabis, and nutritional supplements).: Yes
[2025-01-15 21:59] LABS: Basophils Absolute Auto 0.1 K/mm3 (0.0-0.1); Basophils Percent Auto 0.8 % (0.2-1.2); Eosinophils Absolute Auto 0.1 K/mm3 (0-0.3); Hematocrit 38.5 % (37.0-47.0); Hemoglobin 12.3 g/dL (12.0-15.0); Immature Granulocyte Absolute 0.03 K/mm3 (0.00-0.031); Immature Granulocyte Percent A 0.3 % (0-0.5); Immature Platelet Fraction Pct 2.6 % (0.9-11.2); Lymphocytes Absolute Auto 1.93 K/mm3 (0.9-3.2); Mean Corpuscular HGB Conc 31.9 g/dl (32-36); Mean Corpuscular Hemoglobin 30.2 pg (26-34); Mean Corpuscular Volume 94.6 fl (80-100); Monocytes Absolute Auto 0.7 K/mm3 (0.1-0.6); Neutrophils Absolute Auto 6.3 K/mm3 (1.3-6.7); Neutrophils Percent Auto 68.9 % (45.5-73.1); Platelet Count Result 144 k/mm3 (150-375); Red Blood Count 4.07 M/mm3 (4.2-5.4); Red Cell Distribution Width 12.9 % (11.5-14.5); White Blood Count 9.2 K/mm3 (4.5-10.0)
[2025-01-15 22:33] LABS: Alanine Aminotransferase 17 U/L (6-35); Albumin Level 3.4 g/dL (3.5-5.1); Alkaline Phosphatase 59 U/L (38-126); Anion Gap 6 mmol/L (4-12); Aspartate Amino Transferase 33 U/L (14-36); Bilirubin,Total 0.4 mg/dL (0.2-1.3); Blood Urea Nitrogen 18 mg/dL (7-17); Carbon Dioxide 25 mmol/L (22-30); Chloride 110 mmol/L (98-107); Estimated CRCL calculation 45 ml/min; Estimated Glomerular Filt Rate 56; Glucose 116 mg/dL (65-110); Magnesium 2.2 mg/dL (1.6-2.3); Phosphorus 3.1 mg/dL (2.5-4.5); Potassium 4.2 mmol/L (3.4-5.0); Sodium 141 mmol/L (137-145); Total Protein 5.7 g/dL (6.3-8.2)
[2025-01-15] MEDS: HYDROmorphone HCL INJ (*CRX) 2 MG/ML VIAL 1 MG IV PUSH (22:46)
--- NOTE | 2025-01-15 23:10 | ADMGEN ---
This patient, Jody Zelaya, was admitted to [facility] Surg Room 322-02. Patient/family oriented to hospital policies and general routines including ID bracelet, bed and alarms, visiting hours, pain management, procedures, bathroom and other care routines, personal items, smoking policy, room service/diet, and visiting hours. Information on how to activate the Rapid Response Team has been discussed. Patient/Family are encouraged to report perceived risks to care and to ask questions if they do not understand what they are told or what they should do.
[2025-01-16] VITALS (18 sets, daily range): BP systolic 123–177; BP diastolic 60–95; PULSE 66–96; RESP 10–68; TEMP 35.7–36.4; O2SAT 95–100
[2025-01-16] MEDS: HYDROmorphone HCL INJ (*CRX) 2 MG/ML VIAL 1 MG IV PUSH ×3 (03:08→12:26)
[2025-01-16] MEDS: LACTATED RINGERS 1,000 ML 75 ML IV CONT ×2 (05:56→20:38)
[2025-01-16] MEDS: GABAPENTIN 300 MG CAPSULE PO ×2 (06:02→20:34)
[2025-01-16] MEDS: METOPROLOL TARTRATE 25 MG TABLET PO (08:13)
[2025-01-16] MEDS: METOPROLOL TARTRATE 12.5 MG TABLET PO (08:14)
--- NOTE | 2025-01-16 08:50 | P.CONOP_ITS ---
Assessment and Plan Assessment and plan (1) Distal radius fracture, right: Qualifiers: Encounter type: initial encounter Fracture type: closed < DAVID Estevez - Last Filed: 01/16/25 13:40> Code(s): S52.501A - Unspecified fracture of the lower end of right radius, initial encounter for closed fracture <DAVID Estevez - Last Filed: 01/16/25 13:40> Status: Acute <DAVID Estevez - Last Filed: 01/16/25 13:40> Assessment and Plan: Displaced distal radius fracture. Severe pain. Patient was recently discharged from an acute rehab due to right leg pain and weakness. She lives at home by herself. She fell on an outstretched hand and had immediate pain. Attempted reduction in the ER with some improvement in alignment. Patient did have a small laceration that was treated with a single simple interrupted stitch. We discussed the risks, benefits, and alternatives of surgery. ORIF is recommended. Patient is in agreement. Risks associated with the fracture include and not limited to further displacement, deformity, malunion, nonunion, stiffness, nerve damage, bleeding, infection, and arthritis. She does currently have some intermittent tingling in her 5th digit. Plan for ORIF right distal radius fracture today. NPO. <DAVID Estevez - Last Filed: 01/16/25 13:40> Assessment and Plan: Displaced distal radius fracture will require ORIF. Plan volar locking plate. We discussed the risks, benefits, and alternatives to surgery. Proceed with ORIF right wrist. Platform walker (non weight bearing right wrist) for 6 weeks. Patient seen and examined. Discussed above care plan. Radiographic images reviewed personally. <Michael Charles MD - Last Filed: 01/16/25 16:14> History of Present Illness HPI Consult date: 01/16/25 <DAVID Estevez - Last Filed: 01/16/25 13:40> 01/16/25 <Michael Charles MD - Last Filed: 01/16/25 16:14> Chief complaint: distal radius fracture <DAVID Estevez - Last Filed: 01/16/25 13:40> Narrative: Patient fell from a standing height. She notes she was reaching for something. She fell onto an outstretched hand and complained of right wrist pain. She went to the ER and was found to have a displaced distal radius fracture. Attempted reduction in the ER with some improvement in alignment. Splint placed. Patient complaining of severe pain. Also notes some intermittent tingling in the pinky finger. No other numbness or tingling. Patient did complain of pelvic pressure at the time of my visit. The nurse was in the process of getting a bladder scan ordered. Patient was recently discharged from inpatient rehab due to right leg pain and weakness. <DAVID Estevez - Last Filed: 01/16/25 13:40> Review of Systems 2 Review of Systems: All systems reviewed & are unremarkable except as noted in HPI and below <DAVID Estevez - Last Filed: 01/16/25 13:40> [facility] Past Medical History Medical History: Medical History Depression Prolapse of female pelvic organs Kidney stones Gastroesophageal reflux disease Hypertension Chronic kidney disease, stage 3 Encounter for dual-energy x-ray absoptiometry review Mammogram normal Obesity Hearing problem Hepatitis C antibody test negative (07/24/17) <DAVID Estevez - Last Filed: 01/16/25 13:40> Surgical History Surgical History: Surgical History History of colpocleisis History of appendectomy History of appendectomy <DAVID Estevez - Last Filed: 01/16/25 13:40> Family History Family History: Family History Mother Diabetes mellitus Sibling Depression Father Depression Family history of suicide Hypertension Grandparent Family history of cardiovascular disease Family history of coronary artery disease Mother COPD (chronic obstructive pulmonary disease) Father Suicide Other No family history of diabetes mellitus No family history of hypertension No family history of malignant neoplasm <DAVID Estevez - Last Filed: 01/16/25 13:40> Social History Social History: Social History Social History: Surrogate medical decision maker: Stephanie Valle, daughter ([phone]). Code status: Full code. Smoking status: Never smoker Alcohol intake: former Drinks per week: 1 Substance use: never Substance use type: does not use Do You Feel Safe in your Home?: Yes Lack of Transportation: No Lack of Food: Never True Current Housing: I Do Not Have Housing Concerned About Future Housing: No Difficulty Paying Gas/Electric Bills: No Difficulty Paying for Meds: No Currently Unemployed: No Education: Don't Know Difficulty w/ Childcare or Family Care: No Living arrangements: alone Additional living arrangements comments: . She lives in her own home in [place] and is independent of daily activities of living. Occupation/Education: retired Gender identity (if verbalized by the patient): Female Sexual Orientation (if Verbalized by the Patient): Straight or Heterosexual Spiritual care concerns: No Agree to blood products: Yes <DAVID Estevez - Last Filed: 01/16/25 13:40> Meds Home Medications and Allergies Home medications: Home Medications ?Medication ?Instructions ?Recorded ?Confirmed ?Type calcium 600 mg (as carbonate)-vit 1 tablet PO DAILY 04/08/20 01/15/25 History D3 20 mcg (800 unit) chewable tablet (Caltrate plus D) metoprolol tartrate 37.5 mg tablet 37.5 mg PO DAILY #90 tabs 10/30/24 01/15/25 Rx cyclobenzaprine 5 mg tablet 5 mg PO TID PRN muscle spasm #30 12/02/24 01/15/25 Rx tabs naloxone 4 mg/actuation nasal 4 mg intranasal Q3M PRN opioid 12/02/24 01/15/25 Rx spray (Rextovy) overdose #2 ea gabapentin 300 mg capsule 300 mg PO Q8H 01/15/25 01/15/25 History (Neurontin) <DAVID Estevez - Last Filed: 01/16/25 13:40> Allergies/Adverse reactions: Allergies Allergy/AdvReac Type Severity Reaction Status Date / Time No Known Allergies Allergy Mild Verified 01/15/25 21:59 <DAVID Estevez - Last Filed: 01/16/25 13:40> Vital Signs Vital Signs - 24 hr 01/15/25 16:47 01/15/25 18:05 01/15/25 18:16 Temperature 98.1 F Pulse Rate 77 Pulse Rate [Monitor] 82 Respiratory Rate 18 13 13 Blood Pressure 148/69 H Blood Pressure [Left Arm] 165/76 H 164/86 H Pulse Oximetry 100 100 100 Oxygen Delivery Room Air Nasal Cannula Nasal Cannula Oxygen Flow Rate 2 2 01/15/25 18:19 01/15/25 18:23 01/15/25 18:41 Temperature 97.6 F Pulse Rate Pulse Rate [Monitor] 83 88 83 Respiratory Rate 12 13 18 Blood Pressure Blood Pressure [Left Arm] 164/86 H 185/97 H 174/78 H Pulse Oximetry 100 97 100 Oxygen Delivery Nasal Cannula Nasal Cannula Nasal Cannula Oxygen Flow Rate 2 2 2 01/15/25 19:00 01/15/25 19:40 01/15/25 20:24 Temperature 98.0 F Pulse Rate 83 96 98 Pulse Rate [Monitor] Respiratory Rate 11 L 14 15 Blood Pressure 149/75 H 153/82 H 129/70 Blood Pressure [Left Arm] Pulse Oximetry 100 95 99 Oxygen Delivery Oxygen Flow Rate 01/15/25 22:00 01/16/25 06:00 01/16/25 08:13 Temperature 97.4 F L 97.6 F Pulse Rate 99 87 96 Pulse Rate [Monitor] Respiratory Rate 18 18 Blood Pressure 146/84 H 150/69 H Blood Pressure [Left Arm] Pulse Oximetry 99 100 Oxygen Delivery Oxygen Flow Rate 01/16/25 08:14 Temperature Pulse Rate 96 Pulse Rate [Monitor] Respiratory Rate Blood Pressure Blood Pressure [Left Arm] Pulse Oximetry Oxygen Delivery Oxygen Flow Rate <DAVID Estevez - Last Filed: 01/16/25 13:40> Exam 2 Narrative: Overweight 79 y/o female. Alert and Oriented. No acute distress. Patient uncomfortable. Splint intact. Arm elevated. Patient can wiggle her fingers. Good capillary refill. <DAVID Estevez Last Filed: 01/16/25 13:40> Results Labs Result Diagrams: 01/15/25 21:42 01/15/25 21:42 <DAVID Estevez Last Filed: 01/16/25 13:40> Labs: Abnormal lab results 01/15/25 Range/Units 21:42 RBC 4.07 L (4.2-5.4) M/mm3 MCHC 31.9 L (32-36) g/dl Plt Count 144 L (150-375) k/mm3 Sampson # (Auto) 0.7 H (0.1-0.6) K/mm3 Chloride 110 H (98-107) mmol/L BUN 18 H D (7-17) mg/dL Estimated GFR 56 L (59 - ) Glucose 116 H (65-110) mg/dL Total Protein 5.7 L (6.3-8.2) g/dL Albumin 3.4 L (3.5-5.1) g/dL H & H 01/15/25 Range/Units 21:42 Hgb 12.3 (12.0-15.0) g/dL Hct 38.5 (37.0-47.0) % All other labs normal. <DAVID Estevez - Last Filed: 01/16/25 13:40>
--- NOTE | 2025-01-16 12:09 | WPDHPUPDATE1 ---
History and Physical Update Update Date/Time: 01/16/25 12:09 History and Physical has been reviewed, including an updated exam of the patient. There are NO changes in the patient's condition. Risks, benefits, and alternatives have been discussed and questions answered. Patient agrees to proceed with procedure.
[2025-01-16] MEDS: TRANEXAMIC ACID 1,000MG/ISO100 1,000 MG/100 ML BAG 200 MG IVPB (15:20)
[2025-01-16] MEDS: LACTATED RINGERS 1,000 ML 30 ML IV CONT ×2 (15:30→17:45)
--- NOTE | 2025-01-16 15:37 | P.PNAN_ITS ---
Anes - Initial Pre Proc Eval Procedure: Operation Date: 01/16/25 16:30 Proposed Procedures p Open Reduction Internal Fixation Right Distal Radius Fracture(Right) - Michael Charles MD Date/Time: 01/16/25 15:37 Surgeon: Ash Iqbal MD Pre Op Diagnosis: distal radius fracture Patient Data Age: 79 Gender: F Height: 1.68 m Weight: 78.8 kg Last Vital Signs Temp 36.2 C L 01/16/25 15:03 Pulse 72 01/16/25 15:03 Resp 18 01/16/25 15:03 BP 145/83 H 01/16/25 15:03 Pulse Ox 97 01/16/25 15:03 O2 Del Method Room Air 01/16/25 15:03 O2 Flow Rate 2 01/15/25 18:41 Allergies Allergy/AdvReac Type Severity Reaction Status Date / Time No Known Allergies Allergy Mild Verified 01/15/25 21:59 Home Medications ?Medication ?Instructions ?Recorded ?Confirmed ?Type calcium 600 mg (as carbonate)-vit 1 tablet PO DAILY 04/08/20 01/15/25 History D3 20 mcg (800 unit) chewable tablet (Caltrate plus D) metoprolol tartrate 37.5 mg tablet 37.5 mg PO DAILY #90 tabs 10/30/24 01/15/25 Rx cyclobenzaprine 5 mg tablet 5 mg PO TID PRN muscle spasm #30 12/02/24 01/15/25 Rx tabs naloxone 4 mg/actuation nasal 4 mg intranasal Q3M PRN opioid 12/02/24 01/15/25 Rx spray (Rextovy) overdose #2 ea gabapentin 300 mg capsule 300 mg PO Q8H 01/15/25 01/15/25 History (Neurontin) Laboratory Tests 01/15/25 01/16/25 21:42 11:33 WBC 9.2 K/mm3 (4.5-10.0) RBC 4.07 L M/mm3 (4.2-5.4) Hgb 12.3 g/dL (12.0-15.0) Hct 38.5 % (37.0-47.0) MCV 94.6 fl (80-100) MCH 30.2 pg (26-34) MCHC 31.9 L g/dl (32-36) RDW 12.9 % (11.5-14.5) Plt Count 144 L k/mm3 (150-375) MPV 10.0 fl (7.4-10.4) Immature Gran % (Auto) 0.3 % (0-0.5) Neut % (Auto) 68.9 % (45.5-73.1) Lymph % (Auto) 21.0 % (18.3-44.2) [place] % (Auto) 8.0 % (2.6-8.5) Eos % (Auto) 1.0 % (0-4.4) Baso % (Auto) 0.8 % (0.2-1.2) Lymph # (Auto) 1.93 K/mm3 (0.9-3.2) [place] # (Auto) 0.7 H K/mm3 (0.1-0.6) Eos # (Auto) 0.1 K/mm3 (0-0.3) Baso # (Auto) 0.1 K/mm3 (0.0-0.1) Abs Immat Gran (auto) 0.03 K/mm3 (0.00-0.031) Absolute Neuts (auto) 6.3 K/mm3 (1.3-6.7) Absolute Nucleated RBC 0.000 K/mm3 (0.0-0.012) Nucleated RBC % 0.0 % (0.0-0.2) % Immature Plt Fraction 2.6 % (0.9-11.2) Sodium 141 mmol/L (137-145) Potassium 4.2 mmol/L (3.4-5.0) Chloride 110 H mmol/L (98-107) Carbon Dioxide 25 mmol/L (22-30) Anion Gap 6 mmol/L (4-12) BUN 18 H D mg/dL (7-17) Creatinine 0.97 mg/dL (0.7-1.0) Estim Creat Clear Calc 45 ml/min Estimated GFR 56 L (59 - ) Glucose 116 H mg/dL (65-110) Calcium 9.0 mg/dL (8.4-10.2) Phosphorus 3.1 mg/dL (2.5-4.5) Magnesium 2.2 mg/dL (1.6-2.3) Total Bilirubin 0.4 mg/dL (0.2-1.3) AST 33 U/L (14-36) ALT 17 U/L (6-35) Alkaline Phosphatase 59 U/L (38-126) Total Protein 5.7 L g/dL (6.3-8.2) Albumin 3.4 L g/dL (3.5-5.1) Blood Type A Negative Antibody Screen Negative Patient hx anesthesia problems: none Family hx anesthesia problems: none Results Review: All pre-operative results and documents have been reviewed as part of the pre- operative evaluation. [facility] Past Medical History Medical History Depression Prolapse of female pelvic organs Kidney stones Gastroesophageal reflux disease Hypertension Chronic kidney disease, stage 3 Encounter for dual-energy x-ray absoptiometry review Mammogram normal Obesity Hearing problem Hepatitis C antibody test negative (07/24/17) Surgical History Surgical History History of colpocleisis History of appendectomy History of appendectomy Family History Family History Mother Diabetes mellitus Sibling Depression Father Depression Family history of suicide Hypertension Grandparent Family history of cardiovascular disease Family history of coronary artery disease Mother COPD (chronic obstructive pulmonary disease) Father Suicide Other No family history of diabetes mellitus No family history of hypertension No family history of malignant neoplasm Social History Social History Social History: Surrogate medical decision maker: Stephanie Valle, daughter ([phone]). Code status: Full code. Smoking status: Never smoker Alcohol intake: former Drinks per week: 1 Substance use: never Substance use type: does not use Do You Feel Safe in your Home?: Yes Lack of Transportation: No Lack of Food: Never True Current Housing: I Do Not Have Housing Concerned About Future Housing: No Difficulty Paying Gas/Electric Bills: No Difficulty Paying for Meds: No Currently Unemployed: No Education: Don't Know Difficulty w/ Childcare or Family Care: No Living arrangements: alone Additional living arrangements comments: . She lives in her own home in [place] and is independent of daily activities of living. Occupation/Education: retired Gender identity (if verbalized by the patient): Female Sexual Orientation (if Verbalized by the Patient): Straight or Heterosexual Spiritual care concerns: No Agree to blood products: Yes Anes - Eval Final PreProcedure Day of Procedure 01/16/25 15:37 Patient weight: overweight Heart: regular rate and rhythm Lungs: clear to auscultation Airway: Mallampati scale class II Neurological: alert and oriented Last oral intake: >/= 8 hours ASA classification: III Emergent: no Anesthetic plan: proceed Anesthesia type and monitoring: general LMA and standard monitoring Results Review: All pre-operative results and documents have been reviewed as part of the pre- operative evaluation. Informed Consent: The patient's anesthetic plan and its attendant risks and benefits were discussed with the patient/family/POA. Questions were solicited and answers provided to the satisfaction of the patient/family/POA.
[2025-01-16] MEDS: ceFAZolin 2 GM/D5W 50 ML 2 GM/50 ML BAG IVPB ×2 (15:53→23:48)
--- NOTE | 2025-01-16 15:53 | P.PNIM_ITS ---
Progress Note: A&P Assessment and Plan (1) Distal radius fracture, right: Qualifiers: Encounter type: initial encounter Fracture type: closed Code(s): S52.501A - Unspecified fracture of the lower end of right radius, initial encounter for closed fracture Status: Acute Assessment and Plan: -Distal radius fracture and dislocation -ER repaired laceration -ER attempted sedation and closed fracture reduction but patient was still awake after propofol 80 mg, IV Dilaudid 1 mg and Ativan 0.5 mg -Minimal change in imaging after reduction attempt -Orthopedics consulted and requested admission for pain control with plan to go to OR for repair in the morning -Patient reports it takes a lot to knock me out surgery is scheduled for today (2) Intractable pain: Code(s): R52 - Pain, unspecified Status: Acute Assessment and Plan: -Patient with high tolerance to pain medication, unable to be safely sedated in ER -Nursing staff found patient taking [place] 7.5 mg tablets and secured belongings -Pain somewhat improved with 1 mg IV Dilaudid dosing (3) Hypertensive chronic kidney disease with stage 1 through stage 4 chronic kidney disease, or unspecified chronic kidney disease: Code(s): I12.9 - Hypertensive chronic kidney disease with stage 1 through stage 4 chronic kidney disease, or unspecified chronic kidney disease Status: Acute Assessment and Plan: -Renal function appears to be at baseline with eGFR 56 (4) Metabolic syndrome: Code(s): E88.81 - Metabolic syndrome and other insulin resistance Status: Acute Assessment and Plan: -A1c routinely 5.5-5.7 Time Spent With Patient Time with patient: 25 - 35 minutes Subjective Date/time seen: 01/16/25 15:53 Interval history: [id number] female admitted to the hospital for Orthopedics to evaluate and treat fractured and dislocated right distal radius. Patient had just been discharged home from [facility] after 5 weeks of therapy for right sided low back pain radiating down the leg. She was reaching for something when she tripped and fell forward landing on outstretched right wrist. Patient was not using her Rollator because she did not think she had very far to go. Patient reports she had not even picked her medication up from the pharmacy yet when this happened. She denies loss of consciousness. Patient reports she had a small cut to her right forearm that had a stitch placed in ER. Pt is seen and examined. She is comfortable, pain is well controlled. NO nausea. waiting for surgery Review of Systems Review of Systems: All systems reviewed & are unremarkable except as noted in HPI and below Exam Narrative: GENERAL: Well-appearing, well-nourished, and in no acute distress. HEAD: Normocephalic, atraumatic. EYES: PERRL and EOMI. ENT: Mucous membranes moist. CHEST: Clear to auscultation. No respiratory distress. HEART: Regular rate and rhythm. Normal peripheral pulses. EXTREMITIES: Right wrist in splint, cap refill, motor and sensation intact SKIN: Warm, dry, no rash. NEURO: Alert and oriented x3. Objective Data Vital Signs Vital Signs: Vital Signs - 24 hr 01/15/25 16:47 01/15/25 18:05 01/15/25 18:16 Temperature 98.1 F Pulse Rate 77 Pulse Rate [Monitor] 82 Respiratory Rate 18 13 13 Blood Pressure 148/69 H Blood Pressure [Left Arm] 165/76 H 164/86 H Pulse Oximetry 100 100 100 Oxygen Delivery Room Air Nasal Cannula Nasal Cannula Oxygen Flow Rate 2 2 01/15/25 18:19 01/15/25 18:23 01/15/25 18:41 Temperature 97.6 F Pulse Rate Pulse Rate [Monitor] 83 88 83 Respiratory Rate 12 13 18 Blood Pressure Blood Pressure [Left Arm] 164/86 H 185/97 H 174/78 H Pulse Oximetry 100 97 100 Oxygen Delivery Nasal Cannula Nasal Cannula Nasal Cannula Oxygen Flow Rate 2 2 2 01/15/25 19:00 01/15/25 19:40 01/15/25 20:24 Temperature 98.0 F Pulse Rate 83 96 98 Pulse Rate [Monitor] Respiratory Rate 11 L 14 15 Blood Pressure 149/75 H 153/82 H 129/70 Blood Pressure [Left Arm] Pulse Oximetry 100 95 99 Oxygen Delivery Oxygen Flow Rate 01/15/25 22:00 01/16/25 06:00 01/16/25 08:13 Temperature 97.4 F L 97.6 F Pulse Rate 99 87 96 Pulse Rate [Monitor] Respiratory Rate 18 18 Blood Pressure 146/84 H 150/69 H Blood Pressure [Left Arm] Pulse Oximetry 99 100 Oxygen Delivery Oxygen Flow Rate 01/16/25 08:14 01/16/25 14:00 01/16/25 15:03 Temperature 96.2 F L 97.1 F L Pulse Rate 96 69 72 Pulse Rate [Monitor] Respiratory Rate 18 18 Blood Pressure 125/72 145/83 H Blood Pressure [Left Arm] Pulse Oximetry 97 97 Oxygen Delivery Room Air Oxygen Flow Rate Intake/Output Intake/Output: Intake & Output 01/13/25 01/14/25 01/15/25 01/16/25 23:59 23:59 23:59 23:59 Intake Total 1000 Output Total 1200 Balance 1000 -1200 Meds/Results Medications: Active Medications Generic Name Dose Route Start Last Admin Trade Name Freq PRN Reason Stop Dose Admin Acetaminophen 650 mg 01/15/25 19:05 Acetaminophen 325 Mg Tablet PO Q4H PRN Mild Pain (1-3) or Fever Hydrocodone Bitart/Acetaminophen 1 tab 01/15/25 19:05 Hydrocodone/Acetaminophen (*Crx) 5-325 Mg Tablet PO Q4H PRN Pain Rated 4-6 Calcium Carbonate 500 mg 01/16/25 09:00 Calcium/Vitamin D 500 Mg/5 Mcg (200 I.U.) Tablet PO QAM RAMSEY Cyclobenzaprine HCl 5 mg 01/16/25 00:44 Cyclobenzaprine Hcl 5 Mg Tablet PO TID PRN muscle spasm Fentanyl Citrate 25 mcg 01/16/25 15:36 Fentanyl Citrate Inj (*Crx) 100 Mcg/2 Ml Vial IV PUSH Q2M PRN Pain Gabapentin 300 mg 01/16/25 06:00 01/16/25 06:02 Gabapentin 300 Mg Capsule PO 300 mg Q8HR RAMSEY Administration Hydromorphone HCl 1 mg 01/15/25 19:05 01/16/25 12:26 Hydromorphone Hcl Inj (*Crx) 2 Mg/Ml Vial IV PUSH 1 mg Q4H PRN Administration Pain Rated 7-10 Lactated Ringer's 1,000 mls @ 75 mls/hr 01/16/25 05:10 01/16/25 05:56 Lr - Lactated Ringers Iv IV CONT 75 mls/hr .[id number] RAMSEY Administration Lactated Ringer's 1,000 mls @ 30 mls/hr 01/16/25 15:40 Lr - Lactated Ringers Iv IV CONT .Q24H [facility] Lactated Ringer's 1,000 mls @ 30 mls/hr 01/16/25 15:40 Lr - Lactated Ringers Iv IV CONT .Q24H [facility] Metoprolol Tartrate 25 mg 01/16/25 09:00 01/16/25 08:13 Metoprolol Tartrate 25 Mg Tablet PO 25 mg DAILY RAMSEY Administration Metoprolol Tartrate 12.5 mg 01/16/25 09:00 01/16/25 08:14 Metoprolol Tartrate 12.5 Mg Tablet PO 12.5 mg DAILY RAMSEY Administration Ondansetron HCl 4 mg 01/15/25 19:05 Ondansetron Inj 4 Mg/2 Ml Vial IV PUSH Q4H PRN Nausea Ondansetron HCl 4 mg 01/16/25 15:36 Ondansetron Inj 4 Mg/2 Ml Vial IV PUSH ONCE PRN Nausea Oxycodone HCl 5 mg 01/16/25 15:36 Oxycodone Hcl (*Crx) 5 Mg Tab Ir PO ONCE PRN Pain Radiology Results: ITS Impressions Head CT 01/15/25 17:33 IMPRESSION: No acute intracranial findings. Labs Labs: Laboratory Results - last 24 hr 01/15/25 01/16/25 21:42 11:33 WBC 9.2 RBC 4.07 L Hgb 12.3 Hct 38.5 MCV 94.6 MCH 30.2 MCHC 31.9 L RDW 12.9 Plt Count 144 L MPV 10.0 Immature Gran % (Auto) 0.3 Neut % (Auto) 68.9 Lymph % (Auto) 21.0 [place] % (Auto) 8.0 Eos % (Auto) 1.0 Baso % (Auto) 0.8 Lymph # (Auto) 1.93 [place] # (Auto) 0.7 H Eos # (Auto) 0.1 Baso # (Auto) 0.1 Abs Immat Gran (auto) 0.03 Absolute Neuts (auto) 6.3 Absolute Nucleated RBC 0.000 Nucleated RBC % 0.0 % Immature Plt Fraction 2.6 Sodium 141 Potassium 4.2 Chloride 110 H Carbon Dioxide 25 Anion Gap 6 BUN 18 H D Creatinine 0.97 Estim Creat Clear Calc 45 Estimated GFR 56 L Glucose 116 H Calcium 9.0 Phosphorus 3.1 Magnesium 2.2 Total Bilirubin 0.4 AST 33 ALT 17 Alkaline Phosphatase 59 Total Protein 5.7 L Albumin 3.4 L Blood Type A Negative Antibody Screen Negative Quality VTE Prophylaxis VTE prophylaxis: mechanical ordered
[2025-01-16] MEDS: BUPIVACAINE/EPINEPHRINE 0.5% 50 ML VIAL 20 ML INFILTRATE (16:21)
[2025-01-16] MEDS: fentaNYL CITRATE INJ (*CRX) 100 MCG/2 ML VIAL 25 MCG IV PUSH ×4 (17:15→17:35)
--- NOTE | 2025-01-16 17:19 | W.PM.PROC2 ---
Procedure Note - Detailed Date of Procedure 01/16/25 Pre-op Diagnosis Displaced intra-articular 3 part distal radius fracture, right wrist Post-op Diagnosis Same Procedure Performed ORIF right distal radius intra-articular three-part fracture with volar plate and screws Surgeon Michael Charles MD Anesthesia General Findings Satisfactory bone quality. Significant comminution. Description of Procedure Preoperative antibiotics were given. A general anesthetic was administered. The hand was prepped and draped in the usual sterile fashion with a well-padded tourniquet. The limb was exsanguinated and the tourniquet inflated to 250 millimeters of mercury. A longitudinal incision was created over the flexor carpi radialis tendon. Dissection was brought down through the sheath. The pronator quadratus was identified and released off of the radius. The fracture was carefully exposed and cleared of debris. Reduction was obtained with traction and manipulation. Fluoroscopy was used to confirm anatomic reduction. The volar plate was placed on the radius and the position was confirmed. Provisional pins were placed. The dynamic cortical screw was applied. The plate was fine tuned and fluoroscopy was use to confirm that the joint would not be violated. Subsequent distal pins and screws were placed, followed by the proximal row. The wound was irrigated and closed. The tourniquet was released and meticulous hemostasis was confirmed. The skin was closed with 3-0 Monocryl suture and a running 4-0 Monocryl suture. Steri-Strips were applied on the skin. A sterile bulky dressing with a volar splint was applied. Implants Arthrex volar narrow 3 hole distal radius plate distal 2.4 mm locking screws and pegs proximal 3.5 mm locking and cortical screw. Estimated Blood Loss 10 Urine Output 800 Drains No Packing No Pathology None sent Complications No immediate complications Condition Stable Disposition PACU [facility] Billing Surgery - Charge Forward: Surgery Billing
[2025-01-16] MEDS: KETOROLAC 15 MG/ML VIAL (*BKC) IV PUSH (18:11)
[2025-01-16] MEDS: HYDROmorphone HCL INJ (*CRX) 1 MG/ML SYR 0.25 MG IV PUSH ×2 (18:19→18:26)
[2025-01-16] MEDS: SENNA/DOCUSATE SODIUM TABLET 2 TAB PO (20:33)
[2025-01-16] MEDS: ACETAMINOPHEN 325 MG TABLET 650 MG PO (20:33)
[2025-01-16] MEDS: FAMOTIDINE 20 MG TABLET PO (20:34)
[2025-01-17 04:12] VITALS: BP 152/61; PULSE 78; RESP 16; TEMP 35.7; O2SAT 100
[2025-01-17] MEDS: ACETAMINOPHEN 325 MG TABLET 650 MG PO ×4 (05:55→23:58)
[2025-01-17] MEDS: GABAPENTIN 300 MG CAPSULE PO ×3 (05:55→21:35)
[2025-01-17 06:04] LABS: Basophils Percent Auto 0.4 % (0.2-1.2); Eosinophils Percent Auto 0.2 % (0-4.4); Hematocrit 35.7 % (37.0-47.0); Hemoglobin 11.6 g/dL (12.0-15.0); Immature Granulocyte Absolute 0.03 K/mm3 (0.00-0.031); Immature Granulocyte Percent A 0.4 % (0-0.5); Immature Platelet Fraction Pct 2.4 % (0.9-11.2); Lymphocytes Absolute Auto 1.49 K/mm3 (0.9-3.2); Lymphocytes Percent Auto 17.4 % (18.3-44.2); Mean Corpuscular HGB Conc 32.5 g/dl (32-36); Mean Corpuscular Hemoglobin 30.6 pg (26-34); Mean Corpuscular Volume 94.2 fl (80-100); Monocytes Absolute Auto 0.6 K/mm3 (0.1-0.6); Monocytes Percent Auto 7.1 % (2.6-8.5); Neutrophils Absolute Auto 6.4 K/mm3 (1.3-6.7); Neutrophils Percent Auto 74.5 % (45.5-73.1); Platelet Count Result 138 k/mm3 (150-375); Red Blood Count 3.79 M/mm3 (4.2-5.4); Red Cell Distribution Width 12.6 % (11.5-14.5); White Blood Count 8.6 K/mm3 (4.5-10.0)
[2025-01-17 06:42] LABS: Anion Gap 4 mmol/L (4-12); Blood Urea Nitrogen 14 mg/dL (7-17); Calcium 8.7 mg/dL (8.4-10.2); Carbon Dioxide 24 mmol/L (22-30); Chloride 109 mmol/L (98-107); Estimated CRCL calculation 47 ml/min; Estimated Glomerular Filt Rate 60; Glucose 104 mg/dL (65-110); Potassium 4.4 mmol/L (3.4-5.0); Sodium 137 mmol/L (137-145)
[2025-01-17] MEDS: ceFAZolin 2 GM/D5W 50 ML 2 GM/50 ML BAG IVPB ×2 (09:07→16:04)
--- NOTE | 2025-01-17 09:08 | P.PNIM_ITS ---
Progress Note: A&P Assessment and Plan (1) Distal radius fracture, right: Qualifiers: Encounter type: initial encounter Fracture type: closed Code(s): S52.501A - Unspecified fracture of the lower end of right radius, initial encounter for closed fracture Status: Acute Assessment and Plan: -Distal radius fracture and dislocation -ER repaired laceration -ER attempted sedation and closed fracture reduction but patient was still awake after propofol 80 mg, IV Dilaudid 1 mg and Ativan 0.5 mg -Minimal change in imaging after reduction attempt -Orthopedics consulted and requested admission for pain control with plan to go to OR for repair in the morning -Patient reports it takes a lot to knock me out surgery is scheduled for 6/6 ---post op day 1, doing well. pain is well controlled, no nausea. skin is warm, sensation intact anticipate discharge in the next day or two (2) Intractable pain: Code(s): R52 - Pain, unspecified Status: Acute Assessment and Plan: -Patient with high tolerance to pain medication, unable to be safely sedated in ER -Nursing staff found patient taking [place] 7.5 mg tablets and secured belongings -Pain somewhat improved with 1 mg IV Dilaudid dosing prioritize PO pain control (3) Hypertensive chronic kidney disease with stage 1 through stage 4 chronic kidney disease, or unspecified chronic kidney disease: Code(s): I12.9 - Hypertensive chronic kidney disease with stage 1 through stage 4 chronic kidney disease, or unspecified chronic kidney disease Status: Acute Assessment and Plan: -Renal function appears to be at baseline with eGFR 56 (4) Metabolic syndrome: Code(s): E88.81 - Metabolic syndrome and other insulin resistance Status: Acute Assessment and Plan: -A1c routinely 5.5-5.7 Time Spent With Patient Time with patient: 25 - 35 minutes Subjective Date/time seen: 01/17/25 09:08 Interval history: [id number] female admitted to the hospital for Orthopedics to evaluate and treat fractured and dislocated right distal radius. Patient had just been discharged home from [facility] after 5 weeks of therapy for right sided low back pain radiating down the leg. She was reaching for something when she tripped and fell forward landing on outstretched right wrist. Patient was not using her Rollator because she did not think she had very far to go. Patient reports she had not even picked her medication up from the pharmacy yet when this happened. She denies loss of consciousness. Patient reports she had a small cut to her right forearm that had a stitch placed in ER. Pt is seen and examined. She is comfortable, pain is well controlled. NO nausea. waiting for surgery 6/ POD1. doing well, up in the chair. pain is controlled. Care coordination is working on rehab. Review of Systems Review of Systems: All systems reviewed & are unremarkable except as noted in HPI and below Exam Narrative: GENERAL: Well-appearing, well-nourished, and in no acute distress, un in the chair. HEAD: Normocephalic, atraumatic. EYES: PERRL and EOMI. ENT: Mucous membranes moist. CHEST: Clear to auscultation. No respiratory distress. HEART: Regular rate and rhythm. Normal peripheral pulses. EXTREMITIES: Right wrist in splint, cap refill, motor and sensation intact SKIN: Warm, dry, no rash. NEURO: Alert and oriented x3. Objective Data Vital Signs Vital Signs: Vital Signs - 24 hr 01/16/25 14:00 01/16/25 15:03 01/16/25 17:11 Temperature 96.2 F L 97.1 F L 97.0 F L Pulse Rate 69 72 80 Respiratory Rate 18 18 10 L Blood Pressure 125/72 145/83 H 169/79 H Pulse Oximetry 97 97 100 Oxygen Delivery Room Air Simple Face Mask Oxygen Flow Rate 8 Fraction of Inspired Oxygen 01/16/25 17:25 01/16/25 17:30 01/16/25 17:45 Temperature Pulse Rate 69 66 71 Respiratory Rate 66 H 68 H 12 Blood Pressure 177/95 H 145/76 H 155/76 H Pulse Oximetry 100 100 98 Oxygen Delivery Simple Face Mask Room Air Room Air Oxygen Flow Rate 8 Fraction of Inspired Oxygen 01/16/25 18:00 01/16/25 18:15 01/16/25 18:19 Temperature Pulse Rate 79 76 Respiratory Rate 12 12 Blood Pressure 164/83 H 175/81 H 154/84 H Pulse Oximetry 98 98 Oxygen Delivery Room Air Room Air Oxygen Flow Rate Fraction of Inspired Oxygen 01/16/25 18:27 01/16/25 18:42 01/16/25 19:12 Temperature 96.9 F L 96.9 F L 96.8 F L Pulse Rate 73 66 73 Respiratory Rate 12 12 14 Blood Pressure 144/72 H 146/75 H 134/65 Pulse Oximetry 97 96 97 Oxygen Delivery Oxygen Flow Rate Fraction of Inspired Oxygen 01/16/25 20:00 01/16/25 20:12 01/16/25 20:36 Temperature 97.2 F L Pulse Rate 74 75 Respiratory Rate 16 20 Blood Pressure 123/60 Pulse Oximetry 97 95 Oxygen Delivery Room Air Room Air Oxygen Flow Rate Fraction of Inspired Oxygen 21 01/16/25 23:48 01/17/25 04:12 Temperature 97.4 F L 96.2 F L Pulse Rate 77 78 Respiratory Rate 16 16 Blood Pressure 124/63 152/61 H Pulse Oximetry 96 100 Oxygen Delivery Oxygen Flow Rate Fraction of Inspired Oxygen Intake/Output Intake/Output: Intake & Output 01/14/25 01/15/25 01/16/25 01/17/25 23:59 23:59 23:59 23:59 Intake Total 1000 1850.0 290 Output Total 2200 700 Balance 1000 -350.0 -410 Meds/Results Medications: Active Medications Generic Name Dose Route Start Last Admin Trade Name Freq PRN Reason Stop Dose Admin Acetaminophen 650 mg 01/16/25 18:27 01/17/25 05:55 Acetaminophen 325 Mg Tablet PO 650 mg Q6HR RAMSEY Administration Calcium Carbonate 500 mg 01/16/25 09:00 01/17/25 09:03 Calcium/Vitamin D 500 Mg/5 Mcg (200 I.U.) Tablet PO Not Given QAM RAMSEY Cyclobenzaprine HCl 10 mg 01/16/25 18:27 Cyclobenzaprine Hcl 10 Mg Tablet PO Q8H PRN Spasms Diphenhydramine HCl 25 mg 01/16/25 18:27 Diphenhydramine Hcl Inj 50 Mg/Ml Vial IV PUSH Q6H PRN Itching Famotidine 20 mg 01/16/25 21:00 01/16/25 20:34 Famotidine 20 Mg Tablet PO 20 mg Q12HR RAMSEY Administration Fentanyl Citrate 25 mcg 01/16/25 15:36 01/16/25 17:35 Fentanyl Citrate Inj (*Crx) 100 Mcg/2 Ml Vial IV PUSH 25 mcg Q2M PRN Administration Pain Gabapentin 300 mg 01/16/25 06:00 01/17/25 05:55 Gabapentin 300 Mg Capsule PO 300 mg Q8HR RAMSEY Administration Hydromorphone HCl 1 mg 01/16/25 18:45 Hydromorphone Hcl Inj (*Crx) 2 Mg/Ml Vial IV PUSH Q2H PRN Breakthrough Pain Rated 7-10 or NPO Hydromorphone HCl 0.5 mg 01/16/25 18:46 Hydromorphone Hcl Inj (*Crx) 2 Mg/Ml Vial IV PUSH Q2H PRN Breakthrough Pain Rated 4-6 or NPO Lactated Ringer's 1,000 mls @ 75 mls/hr 01/16/25 05:10 01/16/25 20:38 Lr - Lactated Ringers Iv IV CONT 75 mls/hr .[id number] RAMSEY Administration Lactated Ringer's 1,000 mls @ 30 mls/hr 01/16/25 15:40 01/16/25 17:45 Lr - Lactated Ringers Iv IV CONT Infused .Q24H RAMSEY Infusion Lactated Ringer's 1,000 mls @ 30 mls/hr 01/16/25 15:40 01/16/25 18:23 Lr - Lactated Ringers Iv IV CONT Infused .Q24H RAMSEY Infusion Cefazolin Sodium 2 gm in 50 mls @ 100 mls/hr 01/17/25 00:00 01/17/25 09:07 Ancef 2 Gm/D5w 50 Ml IVPB 01/17/25 16:29 100 mls/hr Q8H RAMSEY Administration Ibuprofen 800 mg in 200 mls @ 400 mls/hr 01/16/25 18:27 Caldolor 800 Mg/200 Ml IVPB Q6H PRN Breakthrough Pain Rated 1-3 or NPO Metoprolol Tartrate 25 mg 01/16/25 09:00 01/16/25 08:13 Metoprolol Tartrate 25 Mg Tablet PO 25 mg DAILY RAMSEY Administration Metoprolol Tartrate 12.5 mg 01/16/25 09:00 01/16/25 08:14 Metoprolol Tartrate 12.5 Mg Tablet PO 12.5 mg DAILY RAMSEY Administration Naloxone HCl 0.1 mg 01/16/25 18:27 Naloxone Hcl 0.4 Mg/Ml Vial IV PUSH Q2M PRN Opiate Reversal Ondansetron HCl 4 mg 01/16/25 15:36 Ondansetron Inj 4 Mg/2 Ml Vial IV PUSH ONCE PRN Nausea Ondansetron HCl 4 mg 01/16/25 18:27 Ondansetron Inj 4 Mg/2 Ml Vial IV PUSH Q4H PRN Nausea And Vomiting Oxycodone HCl 5 mg 01/16/25 15:36 Oxycodone Hcl (*Crx) 5 Mg Tab Ir PO ONCE PRN Pain Oxycodone/Acetaminophen 1 tab 01/16/25 18:27 Oxycodone/Acetaminophen (*Crx) 10-325 Mg Tablet PO Q6H PRN Pain Rated 7-10 Oxycodone/Acetaminophen 1 tablet 01/16/25 18:27 Oxycodone/Acetaminophen (*Crx) 5-325 Mg Tablet PO Q4H PRN Pain Rated 4-6 Polyethylene Glycol 17 gm 01/17/25 09:00 01/17/25 09:04 Polyethylene Glycol 3350 17 Gm Powd.Pack PO Not Given QAM RAMSEY Senna/Docusate Sodium 2 tab 01/16/25 18:27 01/16/25 20:33 Senna/Docusate Sodium Tablet PO 2 tab BID RAMSEY Administration Tramadol HCl 50 mg 01/16/25 18:27 Tramadol Hcl (*Crx) 50 Mg Tablet PO Q4H PRN Pain Rated 1-3 Radiology Results: ITS Impressions Head CT 01/15/25 17:33 IMPRESSION: No acute intracranial findings. Labs Labs: Laboratory Results - last 24 hr 01/16/25 01/17/25 11:33 05:51 WBC 8.6 RBC 3.79 L Hgb 11.6 L Hct 35.7 L MCV 94.2 MCH 30.6 MCHC 32.5 RDW 12.6 Plt Count 138 L MPV 10.0 Immature Gran % (Auto) 0.4 Neut % (Auto) 74.5 H Lymph % (Auto) 17.4 L [place] % (Auto) 7.1 Eos % (Auto) 0.2 Baso % (Auto) 0.4 Lymph # (Auto) 1.49 [place] # (Auto) 0.6 Eos # (Auto) 0.0 Baso # (Auto) 0.0 Abs Immat Gran (auto) 0.03 Absolute Neuts (auto) 6.4 Absolute Nucleated RBC 0.000 Nucleated RBC % 0.0 % Immature Plt Fraction 2.4 Sodium 137 Potassium 4.4 Chloride 109 H Carbon Dioxide 24 Anion Gap 4 BUN 14 Creatinine 0.91 Estim Creat Clear Calc 47 Estimated GFR 60 Glucose 104 Calcium 8.7 Blood Type A Negative Antibody Screen Negative Quality VTE Prophylaxis VTE prophylaxis: mechanical ordered
[2025-01-17 09:10] VITALS: PULSE 89
[2025-01-17] MEDS: METOPROLOL TARTRATE 25 MG TABLET PO (09:10)
[2025-01-17] MEDS: FAMOTIDINE 20 MG TABLET PO ×2 (09:10→21:35)
[2025-01-17 09:11] VITALS: PULSE 89
[2025-01-17] MEDS: METOPROLOL TARTRATE 12.5 MG TABLET PO (09:11)
[2025-01-17] MEDS: SENNA/DOCUSATE SODIUM TABLET 2 TAB PO (09:11)
[2025-01-17] MEDS: CALCIUM/VITAMIN D 500 MG/5 MCG (200 I.U.) TABLET PO (09:11)
--- NOTE | 2025-01-17 10:19 | PM.PNORT ---
Progress Note: A&P Assessment and Plan (1) Distal radius fracture, right: Qualifiers: Encounter type: initial encounter Fracture type: closed Code(s): S52.501A - Unspecified fracture of the lower end of right radius, initial encounter for closed fracture Status: Acute Plan Postoperative day 1. Pain well controlled. Slight numbness on the small finger is unchanged from preoperative. She wiggles her fingers with good strength. Brisk capillary refill. Elbow benign. Splint intact. Afebrile. Vital signs stable. May discharge to rehab when ready. Will follow up in clinic in 2 weeks. Subjective Subjective Date/Time Seen: 01/17/25 10:19 Objective Data Vital Signs Vital Signs: Vital Signs - 24 hr 01/16/25 14:00 01/16/25 15:03 01/16/25 17:11 Temperature 35.7 C L 36.2 C L 36.1 C L Pulse Rate 69 72 80 Respiratory Rate 18 18 10 L Blood Pressure 125/72 145/83 H 169/79 H Pulse Oximetry 97 97 100 Oxygen Delivery Room Air Simple Face Mask Oxygen Flow Rate 8 Fraction of Inspired Oxygen 01/16/25 17:25 01/16/25 17:30 01/16/25 17:45 Temperature Pulse Rate 69 66 71 Respiratory Rate 66 H 68 H 12 Blood Pressure 177/95 H 145/76 H 155/76 H Pulse Oximetry 100 100 98 Oxygen Delivery Simple Face Mask Room Air Room Air Oxygen Flow Rate 8 Fraction of Inspired Oxygen 01/16/25 18:00 01/16/25 18:15 01/16/25 18:19 Temperature Pulse Rate 79 76 Respiratory Rate 12 12 Blood Pressure 164/83 H 175/81 H 154/84 H Pulse Oximetry 98 98 Oxygen Delivery Room Air Room Air Oxygen Flow Rate Fraction of Inspired Oxygen 01/16/25 18:27 01/16/25 18:42 01/16/25 19:12 Temperature 36.1 C L 36.1 C L 36.0 C L Pulse Rate 73 66 73 Respiratory Rate 12 12 14 Blood Pressure 144/72 H 146/75 H 134/65 Pulse Oximetry 97 96 97 Oxygen Delivery Oxygen Flow Rate Fraction of Inspired Oxygen 01/16/25 20:00 01/16/25 20:12 01/16/25 20:36 Temperature 36.2 C L Pulse Rate 74 75 Respiratory Rate 16 20 Blood Pressure 123/60 Pulse Oximetry 97 95 Oxygen Delivery Room Air Room Air Oxygen Flow Rate Fraction of Inspired Oxygen 21 01/16/25 23:48 01/17/25 04:12 01/17/25 08:38 Temperature 36.3 C L 35.7 C L Pulse Rate 77 78 Respiratory Rate 16 16 Blood Pressure 124/63 152/61 H Pulse Oximetry 96 100 Oxygen Delivery Room Air Oxygen Flow Rate Fraction of Inspired Oxygen 01/17/25 09:10 01/17/25 09:11 Temperature Pulse Rate 89 89 Respiratory Rate Blood Pressure Pulse Oximetry Oxygen Delivery Oxygen Flow Rate Fraction of Inspired Oxygen Intake/Output Intake/Output: Intake & Output 01/14/25 01/15/25 01/16/25 01/17/25 23:59 23:59 23:59 23:59 Intake Total 1000 1850.0 340 Output Total 2200 700 Balance 1000 -350.0 -360 Meds/Results Medications: Active Medications Generic Name Dose Route Start Last Admin Trade Name Freq PRN Reason Stop Dose Admin Acetaminophen 650 mg 01/16/25 18:27 01/17/25 05:55 Acetaminophen 325 Mg Tablet PO 650 mg Q6HR RAMSEY Administration Calcium Carbonate 500 mg 01/16/25 09:00 01/17/25 09:11 Calcium/Vitamin D 500 Mg/5 Mcg (200 I.U.) Tablet PO 500 mg QAM RAMSEY Administration Cyclobenzaprine HCl 10 mg 01/16/25 18:27 Cyclobenzaprine Hcl 10 Mg Tablet PO Q8H PRN Spasms Diphenhydramine HCl 25 mg 01/16/25 18:27 Diphenhydramine Hcl Inj 50 Mg/Ml Vial IV PUSH Q6H PRN Itching Famotidine 20 mg 01/16/25 21:00 01/17/25 09:10 Famotidine 20 Mg Tablet PO 20 mg Q12HR RAMSEY Administration Fentanyl Citrate 25 mcg 01/16/25 15:36 01/16/25 17:35 Fentanyl Citrate Inj (*Crx) 100 Mcg/2 Ml Vial IV PUSH 25 mcg Q2M PRN Administration Pain Gabapentin 300 mg 01/16/25 06:00 01/17/25 05:55 Gabapentin 300 Mg Capsule PO 300 mg Q8HR RAMSEY Administration Hydromorphone HCl 1 mg 01/16/25 18:45 Hydromorphone Hcl Inj (*Crx) 2 Mg/Ml Vial IV PUSH Q2H PRN Breakthrough Pain Rated 7-10 or NPO Hydromorphone HCl 0.5 mg 01/16/25 18:46 Hydromorphone Hcl Inj (*Crx) 2 Mg/Ml Vial IV PUSH Q2H PRN Breakthrough Pain Rated 4-6 or NPO Lactated Ringer's 1,000 mls @ 75 mls/hr 01/16/25 05:10 01/16/25 20:38 Lr - Lactated Ringers Iv IV CONT 75 mls/hr .[id number] RAMSEY Administration Lactated Ringer's 1,000 mls @ 30 mls/hr 01/16/25 15:40 01/16/25 17:45 Lr - Lactated Ringers Iv IV CONT Infused .Q24H RAMSEY Infusion Lactated Ringer's 1,000 mls @ 30 mls/hr 01/16/25 15:40 01/16/25 18:23 Lr - Lactated Ringers Iv IV CONT Infused .Q24H RAMSEY Infusion Cefazolin Sodium 2 gm in 50 mls @ 100 mls/hr 01/17/25 00:00 01/17/25 09:37 Ancef 2 Gm/D5w 50 Ml IVPB 01/17/25 16:29 Infused Q8H RAMSEY Infusion Ibuprofen 800 mg in 200 mls @ 400 mls/hr 01/16/25 18:27 Caldolor 800 Mg/200 Ml IVPB Q6H PRN Breakthrough Pain Rated 1-3 or NPO Metoprolol Tartrate 25 mg 01/16/25 09:00 01/17/25 09:10 Metoprolol Tartrate 25 Mg Tablet PO 25 mg DAILY RAMSEY Administration Metoprolol Tartrate 12.5 mg 01/16/25 09:00 01/17/25 09:11 Metoprolol Tartrate 12.5 Mg Tablet PO 12.5 mg DAILY RAMSEY Administration Naloxone HCl 0.1 mg 01/16/25 18:27 Naloxone Hcl 0.4 Mg/Ml Vial IV PUSH Q2M PRN Opiate Reversal Ondansetron HCl 4 mg 01/16/25 15:36 Ondansetron Inj 4 Mg/2 Ml Vial IV PUSH ONCE PRN Nausea Ondansetron HCl 4 mg 01/16/25 18:27 Ondansetron Inj 4 Mg/2 Ml Vial IV PUSH Q4H PRN Nausea And Vomiting Oxycodone HCl 5 mg 01/16/25 15:36 Oxycodone Hcl (*Crx) 5 Mg Tab Ir PO ONCE PRN Pain Oxycodone/Acetaminophen 1 tab 01/16/25 18:27 Oxycodone/Acetaminophen (*Crx) 10-325 Mg Tablet PO Q6H PRN Pain Rated 7-10 Oxycodone/Acetaminophen 1 tablet 01/16/25 18:27 Oxycodone/Acetaminophen (*Crx) 5-325 Mg Tablet PO Q4H PRN Pain Rated 4-6 Polyethylene Glycol 17 gm 01/17/25 09:00 01/17/25 09:04 Polyethylene Glycol 3350 17 Gm Powd.Pack PO Not Given QAM RAMSEY Senna/Docusate Sodium 2 tab 01/16/25 18:27 01/17/25 09:11 Senna/Docusate Sodium Tablet PO 2 tab BID RAMSEY Administration Tramadol HCl 50 mg 01/16/25 18:27 Tramadol Hcl (*Crx) 50 Mg Tablet PO Q4H PRN Pain Rated 1-3 Radiology Results: ITS Impressions Head CT 01/15/25 17:33 IMPRESSION: No acute intracranial findings. Labs Labs: Laboratory Results - last 24 hr 01/16/25 01/17/25 11:33 05:51 WBC 8.6 RBC 3.79 L Hgb 11.6 L Hct 35.7 L MCV 94.2 MCH 30.6 MCHC 32.5 RDW 12.6 Plt Count 138 L MPV 10.0 Immature Gran % (Auto) 0.4 Neut % (Auto) 74.5 H Lymph % (Auto) 17.4 L [place] % (Auto) 7.1 Eos % (Auto) 0.2 Baso % (Auto) 0.4 Lymph # (Auto) 1.49 [place] # (Auto) 0.6 Eos # (Auto) 0.0 Baso # (Auto) 0.0 Abs Immat Gran (auto) 0.03 Absolute Neuts (auto) 6.4 Absolute Nucleated RBC 0.000 Nucleated RBC % 0.0 % Immature Plt Fraction 2.4 Sodium 137 Potassium 4.4 Chloride 109 H Carbon Dioxide 24 Anion Gap 4 BUN 14 Creatinine 0.91 Estim Creat Clear Calc 47 Estimated GFR 60 Glucose 104 Calcium 8.7 Blood Type A Negative Antibody Screen Negative
[2025-01-17 14:56] VITALS: BP 134/56; PULSE 73; RESP 14; TEMP 36.5; O2SAT 100
[2025-01-17 20:12] VITALS: BP 124/65; PULSE 71; RESP 16; TEMP 36.1; O2SAT 97
[2025-01-18] MEDS: ACETAMINOPHEN 325 MG TABLET 650 MG PO ×2 (05:55→11:13)
[2025-01-18] MEDS: GABAPENTIN 300 MG CAPSULE PO ×2 (05:55→12:59)
[2025-01-18 06:12] VITALS: BP 166/87; PULSE 76; RESP 16; TEMP 35.7; O2SAT 99
[2025-01-18 09:03] VITALS: PULSE 77
[2025-01-18] MEDS: FAMOTIDINE 20 MG TABLET PO (09:03)
[2025-01-18] MEDS: METOPROLOL TARTRATE 25 MG TABLET PO (09:03)
[2025-01-18] MEDS: METOPROLOL TARTRATE 12.5 MG TABLET PO (09:03)
[2025-01-18] MEDS: CALCIUM/VITAMIN D 500 MG/5 MCG (200 I.U.) TABLET PO (09:03)
--- NOTE | 2025-01-18 12:51 | PM.DS ---
DS: Admitting Diagnosis Discharge Date 01/18 Admitting Diagnosis fall distal radius fx DS: Discharge Diagnosis Discharge Diagnosis (1) Distal radius fracture, right: Qualifiers: Encounter type: initial encounter Fracture type: closed Code(s): S52.501A - Unspecified fracture of the lower end of right radius, initial encounter for closed fracture Status: Acute (2) Intractable pain: Code(s): R52 - Pain, unspecified Status: Acute (3) Hypertensive chronic kidney disease with stage 1 through stage 4 chronic kidney disease, or unspecified chronic kidney disease: Code(s): I12.9 - Hypertensive chronic kidney disease with stage 1 through stage 4 chronic kidney disease, or unspecified chronic kidney disease Status: Acute (4) Metabolic syndrome: Code(s): E88.81 - Metabolic syndrome and other insulin resistance Status: Acute DS: Summary Hospital Course Hospital Course: 79-year-old female admitted to the hospital for Orthopedics to evaluate and treat fractured and dislocated right distal radius. Patient had just been discharged home from [facility] after 5 weeks of therapy for right sided low back pain radiating down the leg. She was reaching for something when she tripped and fell forward landing on outstretched right wrist. She denies loss of consciousness. Patient reports she had a small cut to her right forearm that had a stitch placed in ER. # fracture of the lower end of right radius, initial encounter for closed fracture -Distal radius fracture and dislocation -ER repaired laceration -ER attempted sedation and closed fracture reduction but patient was still awake after propofol 80 mg, IV Dilaudid 1 mg and Ativan 0.5 mg -Minimal change in imaging after reduction attempt -Orthopedics consulted surgery is scheduled for 01/16- Open Reduction Internal Fixation Right Distal Radius Fracture(Right) --- post op day 1, doing well. pain is well controlled, no nausea. skin is warm, sensation intact splint in place -PT/OT ordered she was concern about developing constipation and actually having loose stools now-requesting Imodium x 1-insisting on it. -tylenol had helping with pain she needs to f/u with ortho in clinic in 2 weeks Status at Discharge Functional status at discharge: uses cane/walker Overall status at discharge: patient is progressing back to baseline Time Spent with Patient Time attestation: Total time spent providing and/or coordinating discharge services: Time spent: Greater than 30 minutes Exam Narrative: GENERAL: Well-appearing, well-nourished, and in no acute distress, un in the chair. HEAD: Normocephalic, atraumatic. EYES: PERRL and EOMI. ENT: Mucous membranes moist. CHEST: Clear to auscultation. No respiratory distress. HEART: Regular rate and rhythm. Normal peripheral pulses. EXTREMITIES: Right wrist in splint, cap refill, motor and sensation intact SKIN: Warm, dry, no rash. NEURO: Alert and oriented x3. Const: General: comfortable Discharge Plan Discharge Attending physician on discharge: Ash Iqbal Consulting providers: Michael Charles Discharging Clinician: Tonia Ferrell Patient Disposition: SNF Activity: may shower Diet: heart healthy Wound Care Instructions: keep dressing dry Discharge Instructions: Orthopedic instructions: Okay for discharge to rehab/vs home with home health when medically cleared. Non-weight bearing with the right arm with a platform walker. Keep splint dry and intact. Simple sling for comfort only. Ice and elevate to help with pain and swelling. Follow up in office in 1-2 weeks for splint removal, new radiographs, and brace application. Please call [facility] at for more information. Single stitch placed by the ER will be removed when splint is removed. Compression socks for DVT prophylaxis. Patient Language: Yi Stand Alone Forms: General Discharge Information Discharge Medications: New hydrocodone-acetaminophen 5-325 mg tablet 1 tablet PO Q6H PRN (Reason: pain) Qty: 10 0RF Continued Caltrate 600 plus D 600 mg (1,500 mg)-800 unit tablet,chewable 1 tablet PO DAILY naloxone [Rextovy] 4 mg/actuation spray,non-aerosol 4 mg intranasal Q3M PRN (Reason: opioid overdose) Qty: 2 0RF Rx Instructions: spray 1 dose into ONE nostril; alternate nostrils w each dose until help arrives gabapentin [Neurontin] 300 mg Capsule 300 mg PO Q8H cyclobenzaprine 5 mg tablet 5 mg PO TID PRN (Reason: muscle spasm) Qty: 6 0RF metoprolol tartrate 37.5 mg tablet 37.5 mg PO DAILY Qty: 90 1RF Date of admission: 01/16/25 18:27 Primary Care Provider: Ambika Lew Admitting Provider: Ash Iqbal Attending physician on admission: Ash Iqbal Condition: Stable Quality VTE Prophylaxis VTE prophylaxis: mechanical ordered Hospitalist MIPS Heart Failure (Exclusion) Patient has history of Heart Transplant or Left Ventricular Assistive Device?: No IF YES, STOP HERE Heart Failure (Qualifier) Patient has current or prior documentation of LVEF less than or equal to 40%, or mod/servere depressed LVSF?: No IF NO, STOP HERE
[2025-01-18] MEDS: LOPERAMIDE HCL 2 MG CAPSULE 4 MG PO (12:58)
== END 2025-01-18 14:16 | DRG 512 ==
LOC: ANHED 19:05 → ANH3MEDSUR 19:48
PROVIDERS: Nurse Practitioner; Orthopaedic Surgery; Physician Assistant Surgical; Admitting Provider Family Medicine; Emergency Provider Emergency Medicine; PCP Family Medicine; Visit Provider Family Medicine
PROC: 0PSH04Z Reposition Right Radius with Internal Fixation Device, Open Approach (ICD-10-PCS; CPT 25575; principal; 2025-01-16 16:30)
DX: S52.571A Other intraarticular fracture of lower end of right radius, initial encounter for closed fracture (principal); S61.511A Laceration without foreign body of right wrist, initial encounter; I12.9 Hypertensive chronic kidney disease with stage 1 through stage 4 chronic kidney disease, or unspecified chronic kidney disease; N18.30 Chronic kidney disease, stage 3 unspecified; E88.810 Metabolic syndrome; W18.00XA Striking against unspecified object with subsequent fall, initial encounter; K21.9 Gastro-esophageal reflux disease without esophagitis; E66.9 Obesity, unspecified; Z90.49 Acquired absence of other specified parts of digestive tract; Z68.28 Body mass index [BMI] 28.0-28.9, adult
CPT/HCPCS: 12001; 36415; 70450; 73100; 80048; 80053; 83735; 84100; 85025; 85055; 86850; 86900; 86901; 93005; 96365; 96367; 96374; 96375; 97140; 97161; 97165; 99199; 99285; A4565; A9270; C1713; C1769; G0378; J0690; J1100; J1171; J1885; J2004; J2405; J2704; J3010; J7030; J7120

== ENCOUNTER 2025-07-08 09:22 | Outpatient (CLI) | payer MEDICARE, OTHER, SELFPAY ==
--- NOTE | ~2025-07-08 | DEXA_ITS ---
Bone Density Report Name: CHRIS LOMELI Age: 80 Sex: Female Ethnicity: White Date of : 1945 Indication: osteopenia; height loss; Referring Provider: GOLDY ARANGO Study: Bone densitometry was performed. Exam Date: July 08, 2025 Accession number: [id number] Bone Density: Region BMD T-score Z-score Classification AP Spine(L1-L4) 0.906 -1.3 1.4 Osteopenia Femoral Neck (Left) 0.698 -1.4 0.9 Osteopenia Total Hip (Left) 0.726 -1.8 0.2 Osteopenia Femoral Neck (Right) 0.693 -1.4 0.9 Osteopenia Total Hip (Right) 0.693 -2.0 0.0 Osteopenia Total Hip Mean 0.710 -1.9 0.1 Osteopenia World Health Organization criteria for BMD impression classify patients as: Normal (T-score at or above -1.0), Osteopenia (T-score between -1.0 and -2.5), or Osteoporosis (T-score at or below -2.5). 10-year Fracture Risk(1): Major Osteoporotic Fracture 13% Hip Fracture 3.0% Reported Risk Factors: [place] (), Neck BMD=0.693, BMI=25.0 (1) FRAX(R) Version 3.08. Fracture probability calculated for an untreated patient. Fracture probability may be lower if the patient has received treatment. Previous Exams: Region Exam Age BMD T-score BMD Change BMD Change Date g/cm2 vs Baseline vs Previous AP Spine (L1-L4) 07/08/2025 80 0.906 -1.3 -0.019 (-2.0%) -0.009 (-1.0%) 12/06/2020 75 0.915 -1.2 -0.010 (-1.0%) -0.008 (-0.8%) 03/05/2018 72 0.923 -1.1 -0.002 (-0.2%) -0.002 (-0.2%) 02/10/2016 70 0.925 -1.1 Total Hip(Left) 07/08/2025 80 0.726 -1.8 -0.130 (-15.2% -0.058 (-7.4%) 12/06/2020 75 0.784 -1.3 -0.072 (-8.4%) -0.031 (-3.8%) 03/05/2018 72 0.815 -1.0 -0.041 (-4.8%) -0.041 (-4.8%) 02/10/2016 70 0.856 -0.7 Total Hip(Right) 07/08/2025 80 0.693 -2.0 -0.174 (-20.1% -0.035 (-4.7%) 12/06/2020 75 0.728 -1.8 -0.140 (-16.1% -0.068 (-8.6%) 03/05/2018 72 0.796 -1.2 -0.071 (-8.2%) -0.071 (-8.2%) 02/10/2016 70 0.868 -0.6 *Denotes significance at 95% confidence level, LSC for AP Spine = 0.022 g/cm2, LSC for Total Hip = 0.027 g/cm2 # Denotes dissimilar scan types or analysis methods Clinical Information Provided by Patient: Has used the following medications: Calcium Patient maximum height was 69.0 Menopause Age: 50 Onset of menses at age 14 Number of children 3 Impression: The patient has low bone mass, based on the Right Total Hip T-score. The patient has an estimated ten-year risk of hip fracture of 3% and an estimated ten-year risk of major fracture of 13%, based on the WHO FRAX algorithm. No significant bone loss was observed. Discussion: BONE DENSITY IS LOW AT ONE OR MORE SKELETAL SITES. THE PATIENT'S BMD AND CLINICAL RISK FACTORS CONTRIBUTE TO THIS PATIENT'S INCREASED RISK OF FRACTURE. This patient's lowest T-score is low at one or more skeletal sites. It meets the World Health Organization's (WHO) criteria for ?low bone mass? (T-score between -1.0 and -2.5). The patient's 10-year risk of hip fracture as calculated by FRAX exceeds the threshold where pharmacological therapy is recommended by the National Osteoporosis Foundation (NOF). However, all treatment decisions require clinical judgment and consideration of individual patient factors, including patient preferences, comorbidities, previous drug use, risk factors not captured in the FRAX model (e.g., frailty, falls, vitamin D deficiency, increased bone turnover, interval significant decline in bone density) and possible under or overestimation of fracture risk by FRAX. The patient should follow a healthful lifestyle (good nutrition with adequate calcium and vitamin D, and appropriate weight-bearing exercise). Follow-Up: Consider a repeat BMD and Vertebral Fracture Assessment (VFA) exam in 2 years or sooner if medically necessary, to reassess this patient's status. Reported by: YON on 07/08/2025 10:02:00 AM. Reviewed, dictated and finalized at location A.
== END 2025-07-08 09:23 | disposition home or self-care (01) ==
LOC: ANHFOHIMG 09:23
PROVIDERS: PCP Family Medicine; Visit Provider Family Medicine
DX: M85.88 Other specified disorders of bone density and structure, other site (principal); M85.852 Other specified disorders of bone density and structure, left thigh; M85.851 Other specified disorders of bone density and structure, right thigh
CPT/HCPCS: 77080